=== PATIENT | male | born 1930 | race Caucasian/White ===

== ENCOUNTER → 2016-10-27 | Outpatient (CLI) | payer OTHER, BC ==
--- NOTE | 2016-10-27 18:59 | DX ---
Left Wrist, Three Views, at 2:26 p.m. Clinical History: 86-year-old male with a history of gout. Rule out fracture. ICD-10 Diagnostic Code: M1A.09X. Comparison Study: None. Findings: A metallic ring overlies the 5th digit proximal phalanx. The bones are demineralized. Th ere is severe narrowing of the radiocarpal joint space, with subchondral sclerosis and some osseous r esorption of the proximal pole of the navicular, with widening of the scapholunate distance and sever e narrowing of the capitate-lunate articular space. There is also degenerative osteoarthrosis of the navicular-greater multangular articulation, and severe degenerative change at the level of the thumb -carpometacarpal articulation. There is a well-corticated ossific density proximal to the thumb meta carpal. On the lateral view, there is some osseous hypertrophy over the dorsal soft tissues, and pro bable old dorsal triquetral avulsion fracture fragment(s). The pronator fat pad is not displaced. T here is some faint chondrocalcinosis associated with the triangular fibrocartilage. Impression: 1. Bone demineralization. 2. Severe radiocarpal joint space narrowing, with truncation of the scaphoid and widening of the sca pholunate distance as well as degenerative narrowing of the capitate-lunate articulation, and also in volving the radial portion of the intercarpal and thumb-carpometacarpal joint spaces. 3. There are probable old dorsal triquetral avulsion fragment(s).
== END ==
LOC: BMCIMAGING 14:26
PROVIDERS: ATTEND Internal Medicine Rheumatology
DX: M1A.09X0 Idiopathic chronic gout, multiple sites, without tophus (tophi) (principal)

== ENCOUNTER 2017-05-27 10:23 | Inpatient (IN) | payer OTHER, BC ==
--- NOTE | 2017-05-27 10:32 | CPEKG ---
Heart Rate: 87 RR Interval: 690 QRSD Interval: 84 QT Interval: 380 QTC Interval: 457 QRS [place]: 27 T Wave [place]: -19 EKG Severity - ABNORMAL ECG - EKG Impression: ATRIAL FIBRILLATION, V-RATE 69-104 EKG Impression: BORDERLINE T ABNORMALITIES, DIFFUSE LEADS Electronically Signed By: Geraldo Freeman 27-May-2017 16:10:51
--- NOTE | 2017-05-27 10:51 | EDPHY ---
H & P Time Seen by Provider: 05/27/17 10:50 HPI/ROS: Chief complaint. Chest pain HPI. 86-year-old male presents emergency department with chest pain. He has had chest pain for 4 days. It is described as anterior pressure without radiation. Some shortness of breath. Symptoms are worse with exertion and relieved by rest. He feels a little bit weak and lightheaded. No similar symptoms previously. No fever cough. No unusual leg pain or swelling. He has also been having an attack of pseudogout the last several days. He has had aspirin in the last 24 hours ROS Constitutional. no fever/chills, no weakness Eyes. no problems with vision ENT. no sore throat, no nasal drainage Cardiovascular. Chest pain Respiratory. Shortness of breath Abdominal. no abdominal pain, no nausea/vomiting, no diarrhea . no problems urinating MS. no calf pain/swelling, no neck/back pain, no joint pain Skin. no rash Lymph. no swollen glands Neuro. no headache, no dizziness, no difficulty walking or with speech Past Medical/Surgical History: Hernia repair, colon cancer, joint replacements, dyslipidemia, pseudogout Social History: , nonsmoker, no alcohol Smoking Status: Never smoked Physical Exam: General Appearance: Alert well-developed male moderate distress vital signs are stable Eyes: Pupils equal and round no pallor or injection. ENT, Mouth: Mucous membranes are moist. Respiratory: There are no retractions, lungs are clear to auscultation. Cardiovascular: Regular rate and rhythm. Gastrointestinal: Abdomen is soft and nontender, no masses, bowel sounds normal. Neurological: Awake and alert, sensory and motor exams grossly normal. Skin: Warm and dry, no rashes. Musculoskeletal: Neck is supple nontender. Extremities symmetrical, full range of motion. Psychiatric: Patient is oriented X 3, there is no agitation. Constitutional: Initial Vital Signs Temperature (C) 36.7 C 05/27/17 10:34 Heart Rate 80 05/27/17 10:34 Respiratory Rate 18 05/27/17 10:34 Blood Pressure 155/92 H 05/27/17 10:34 O2 Sat (%) 94 05/27/17 10:34 O2 Delivery Mode Room Air Allergies/Adverse Reactions: No Known Allergies Allergy (Unverified 09/20/15 22:27) Home Medications: Medication Instructions Recorded Allopurinol [Allopurinol 300 MG 300 mg PO DAILY 05/15/14 (RX)] Aspirin [Aspirin 81mg (*)] 81 mg PO DAILY 05/15/14 Fenofibric Acid (Choline) 135 mg PO DAILY 05/15/14 [TRILIPIX] Lisinopril [Zestril 20 mg (*)] 20 mg PO DAILY 05/15/14 Rosuvastatin Calcium [Crestor 20mg 20 mg PO DAILY 05/15/14 (*)] Multivitamins [Multivitamin (*)] 1 each PO DAILY 09/21/15 Hydrocodone/APAP 5/325 [[place] 1 tab PO Q6HRS PRN 09/12/16 5/325 (*)] Levothyroxine [Synthroid 50 mcg 50 mcg PO DAILY06 09/12/16 (*)] Methotrexate Sodium [Rheumatrex] 12.5 mg PO Q7D 05/27/17 predniSONE [Prednisone] 10 mg PO DAILY 05/27/17 Medical Decision Making - Diagnostics EKG Interpretation: EKG interpreted by me shows atrial fibrillation with normal axis. QRS is normal there is no significant ST elevation or depression. Ventricular response is 87 Imaging Results: Imaging Impressions Chest X-Ray 05/27/17 10:50 Impression: 1. Pleural parenchymal scarring in the lingula. 2. Calcified granulomata. 3. Cardiomegaly and atherosclerotic aorta without pulmonary edema. 4. No definite pneumonia. 5. Consider chest 2 views when the patient's medical condition permits. Chest x-ray interpreted by me shows no evidence of pneumonia Procedures: IV normal saline, monitor ED Course/Re-evaluation: On re-evaluation the patient, his , and I discussed laboratory evaluation including elevated troponin. We discussed treatment plan including recommendation for admission. He expresses understanding and agreement I consulted discussed case with hospitalist, who agrees to the admission Differential Diagnosis: Chest pain with new onset of atrial fibrillation as well as elevated troponin. I considered acute coronary syndrome, pneumonia. - Data Points Laboratory Results: Laboratory Results 05/27/17 10:27 05/27/17 10:27 05/27/17 05/27/17 05/27/17 10:27 10:27 10:27 WBC 11.59 10^3/uL H 10^3/uL (3.80-9.50) RBC 4.00 10^6/uL L 10^6/uL (4.40-6.38) Hgb 13.1 g/dL L g/dL (13.7-17.5) Hct 38.0 % L % (40.0-51.0) MCV 95.0 fL fL (81.5-99.8) MCH 32.8 pg pg (27.9-34.1) MCHC 34.5 g/dL g/dL (32.4-36.7) RDW 16.8 % H % (11.5-15.2) Plt Count 355 10^3/uL 10^3/uL (150-400) MPV 10.1 fL fL (8.7-11.7) Neut % (Auto) 85.7 % H % (39.3-74.2) Lymph % (Auto) 7.1 % L % (15.0-45.0) [place] % (Auto) 6.4 % % (4.5-13.0) Eos % (Auto) 0.0 % L % (0.6-7.6) Baso % (Auto) 0.1 % L % (0.3-1.7) Nucleat RBC Rel Count 0.0 % % (0.0-0.2) Absolute Neuts (auto) 9.94 10^3/uL H 10^3/uL (1.70-6.50) Absolute Lymphs (auto) 0.82 10^3/uL L 10^3/uL (1.00-3.00) Absolute Monos (auto) 0.74 10^3/uL 10^3/uL (0.30-0.80) Absolute Eos (auto) 0.00 10^3/uL L 10^3/uL (0.03-0.40) Absolute Basos (auto) 0.01 10^3/uL L 10^3/uL (0.02-0.10) Absolute Nucleated RBC 0.00 10^3/uL 10^3/uL (0-0.01) Immature Gran % 0.7 % % (0.0-1.1) Immature Gran # 0.08 10^3/uL 10^3/uL (0.00-0.10) PT 14.5 SEC SEC (12.0-15.0) INR 1.14 (0.83-1.16) APTT 34.6 SEC SEC (23.0-38.0) Sodium 137 mEq/L mEq/L (134-144) Potassium 4.8 mEq/L mEq/L (3.5-5.2) Chloride 102 mEq/L mEq/L (97-110) Carbon Dioxide 19 mEq/l L mEq/l (22-31) Anion Gap 16 mEq/L mEq/L (8-16) BUN 32 mg/dL H mg/dL (7-23) Creatinine 1.9 mg/dL H mg/dL (0.7-1.3) Estimated GFR 34 Glucose 117 mg/dL H mg/dL (70-100) Calcium 9.8 mg/dL mg/dL (8.5-10.4) Troponin I 1.210 ng/mL H ng/mL (0.000-0.034) Medications Given: Discontinued Medications Metoprolol Tartrate (Lopressor) 25 mg PO ONCE ONE Stop: 05/27/17 13:29 Last Admin: 05/27/17 15:22 Dose: 25 mg Departure - Departure Disposition: [facility] Inpatient Acute Clinical Impression: Chest pain Qualifiers: Chest pain type: chest pain due to myocardial ischemia Atrial fibrillation Qualifiers: Atrial fibrillation type: unspecified Qualified Code(s): I48.91 - Unspecified atrial fibrillation Condition: Fair
[2017-05-27 10:56] LABS: % IMMATURE GRANULYOCYTES 0.7 % (0.0-1.1); ABSOLUTE IMMATURE GRANULOCYTES 0.08 10^3/uL (0.00-0.10); ADD DIFF? NO; ADD MORPH? NO; ADD SCAN? NO; ATYPICAL LYMPHOCYTE FLAG 0 (0-99); FRAGMENT RBC FLAG 0 (0-99); HEMOGLOBIN 13.1 g/dL (13.7-17.5); LEFT SHIFT FLG 0 (0-99); LIPEMIA HEMOLYSIS FLAG 90 (0-99); MEAN CELL HEMOGLOBIN 32.8 pg (27.9-34.1); MEAN CELL HEMOGLOBIN CONCENTR. 34.5 g/dL (32.4-36.7); MEAN PLATELET VOLUME 10.1 fL (8.7-11.7); PLATELET CLUMPS FLAG 30 (0-99); PLATELET COUNT 355 10^3/uL (150-400); RED CELL DISTRIBUTION WIDTH 16.8 % (11.5-15.2)
[2017-05-27 11:04] LABS: APTT 34.6 SEC (23.0-38.0); INR 1.14 (0.83-1.16); PROTIME(PATIENT) 14.5 SEC (12.0-15.0)
[2017-05-27 11:05] LABS: ANION GAP 16 mEq/L (8-16); CALCIUM 9.8 mg/dL (8.5-10.4); CARBON DIOXIDE 19 mEq/l (22-31); CHLORIDE 102 mEq/L (97-110); CREATININE 1.9 mg/dL (0.7-1.3); GLOMERULAR FILTRATION RATE 34; GLUCOSE 117 mg/dL (70-100); POTASSIUM 4.8 mEq/L (3.5-5.2); SODIUM 137 mEq/L (134-144)
[2017-05-27] MEDS ORDERED: ONDANSETRON DISINTEGRATING 4 MG TAB PO PRN (11:57)
[2017-05-27] MEDS ORDERED: ONDANSETRON 4 MG/2 ML VIAL IVP PRN (11:57)
[2017-05-27 12:50] LABS: MAGNESIUM 1.8 mg/dL (1.6-2.3)
[2017-05-27 13:03] LABS: TROPONIN I 1.28 ng/mL (0.000-0.034)
[2017-05-27] MEDS ORDERED: HEPARIN 10,000 UNIT/10 ML MDV IVP ONE (13:28)
[2017-05-27] MEDS ORDERED: HEPARIN 10,000 UNIT/10 ML MDV IVP PRN (13:28)
[2017-05-27] MEDS ORDERED: METOPROLOL TARTRATE 25 MG TAB PO ONE (13:28)
--- NOTE | 2017-05-27 14:21 | GHP ---
[f rep st] HISTORY AND PHYSICAL DATE OF ADMISSION: 05/27/2017 CHIEF COMPLAINT: Chest pain. HISTORY OF PRESENT ILLNESS: This is an 86-year-old man, who presents with 2 days of a pseudogout at [facility], as well as chest pain. He has a history of pseudogout. Dr. Dave started him on prednisone . His shoulder got much better over the past few days, though the chest pain has lingered. Thus, tomasz castillo presented to the urgent care first, and then subsequently to the emergency department. Describes the chest pain as substernal pressure. It does not seem to really be exertional. It is associated with shortness of breath, which does get worse with exertion. The chest pain has come and gone, and at the moment that I am seeing him, he is having no chest pain. In the ED, he was found to be in atrial fibrillation. This is a new diagnosis for him. He has kimberlye r been told this before. He has never had any episodes of syncope. PAST MEDICAL/SURGICAL HISTORY: 1. Pseudogout. 2. Hypertension. 3. Hyperlipidemia. 4. Colon cancer. 5. HEATHER. 6. Cholecystectomy. 7. Lumbar fusion. 8. Appendectomy. 9. Multiple orthopedic procedures. MEDICATIONS: Please see medication reconciliation. ALLERGIES: No known drug allergies. SOCIAL HISTORY: He lives at the [place]. He occasionally has a drink of alcohol, though this is a bout every 2 weeks or so. He does not smoke. FAMILY HISTORY: Parents are . REVIEW OF SYSTEMS: A 10-point review of systems is conducted and is negative except per HPI. PHYSICAL EXAM: VITAL SIGNS: Blood pressure is 165/85, heart rate 87, respiration rate 20, saturati ng 94% on room air, temperature is 36.7. GENERAL: The patient is a very pleasant man, who appears comfortable, in no acute distress. HEENT: Shows him to be normocephalic, atraumatic. CARDIOVASCUL AR: Shows him to be irregularly irregular. There are no murmurs, rubs, or gallops. PULMONARY: Sh ows mild diffuse expiratory wheezes. He is not in any respiratory distress. ABDOMEN: Soft, nonten jah, nondistended. SKIN: No rash. : No Jaimes. NEUROLOGIC: Shows him to be alert and oriented x3. He is moving all extremities. PSYCHIATRIC: Shows normal mood and affect. LABS: White count is 11.5, hemoglobin is 13, platelets are 355. INR is 1.14. Lactate was not brandon ured. Creatinine is 1.9. Troponin was 1.2 on 2 subsequent checks. Urinalysis has not been done. DATA: 1. I discussed this with Dr. Sanz. She will evaluate him in consultation. 2. Chest x-ray, which I personally viewed and interpreted, shows nothing acute. 3. EKG, which I personally viewed and interpreted, shows atrial fibrillation. He has some mild T-w ave inversions in leads V4 through V6, which were not present before, but no significant ST changes. IMPRESSION AND PLAN: 1. 86-year-old man with new atrial fibrillation, chest pain, elevated troponin. 2. New atrial fibrillation: Likely precipitant is pseudogout. He is rate controlled. I have disc ussed with Dr. Sanz. She will consider cardioversion. I will give him 1 dose of metoprolol, since his rate seems to be higher than his normal heart rate. His rate is currently in the 80s to 90. Hi s blood pressure is high and he will tolerate this. We will start him on a heparin drip pending Car diology evaluation. 3. Chest pain/elevated troponin: I suspect that this is likely demand, though his troponin is sign ificantly elevated. Again, I have spoken with Dr. Sanz. He has been provided metoprolol, IV hepari n. We will get ischemic evaluation, before he leaves, per Cardiology. 4. Pseudogout: Much better. Will continue his prednisone. 5. Acute kidney injury: I suspect that this is hemodynamic. Will get an echocardiogram and follow this closely while we improve his hemodynamics, which we hope to do. 6. Mild acidosis: Follow. 7. Code status: Full. 8. Venous thromboembolism risk: Low. He will be on a heparin drip. /[id number]/MODL
--- NOTE | 2017-05-27 15:59 | ECHO ---
[id number] + + [address] : : [place] [address] : : [phone] + Adult Echocardiographic Report + ---+ :Name: MORAIMA TUTTLE WStudy Date: 05/27/2017 01:59 PM BP: 165/85 mmHg : : Hospital Admission Number: [id number] Location: 221: :: 1930 Gender: Male Height: 71 in : :Age: 86 yrs Race: WH Weight: 220 lb : :Reason For Study: afib : : BSA: 2.2 meters2 : :History: afib : + ---+ MMode/2D Measurements \T\ Calculations IVSd: 1.4 cm RVDd: 3.3 cm FS: 38.4 % Ao root diam: LVPWd: 1.1 cm LVIDd: 4.0 cm EDV(Teich): 4.2 cm LVIDs: 2.5 cm 70.6 ml ESV(Teich): 21.7 ml EF(Teich): 69.2 % LVLd ap4: 8.6 cm SV(MOD-sp4): EDV(MOD-sp4): 85.0 ml 112.0 ml LVLs ap4: 7.5 cm ESV(MOD-sp4): 27.0 ml EF(MOD-sp4): 75.9 % Normal Measurement Values: + + :LVIDd (3.5-5.7cm) IVSd (0.6-1.1cm) LVPWd (0.6-1.1cm) Aortic Root (2.0-3.7cm)Left Atrium (1.5-4.0cm): :LV Vol(d) (76-115ml) LV Vol(s) (29-48ml) Ejec Fraction (50-65%)PV Jose (0.6- 1.2m/s) TV Jose (0.4-1.0m/s) : :MV E Jose (0.8-1.0m/s)MV A Jose (0.3-1.0m/s)LVOT Jose (0.7-1.2m/s) Asc Ao Jose ( 0.9-1.8m/s) : + + Doppler Measurements \T\ Calculations MV E max jose: Ao V2 max: AI max jose: LV V1 max: 107.6 cm/sec 145.5 cm/sec 502.8 cm/sec 86.9 cm/sec MV dec time: Ao max PG: AI max PG: LV V1 max P.16 sec 8.5 mmHg 101.3 mmHg 3.0 mmHg AI dec slope: 389.9 cm/sec2 AI P1/2t: 377.7 msec PA V2 max: TR max jose: 57.4 cm/sec 290.4 cm/sec PA max P.3 mmHg TR max P.8 mmHg RAP systole: 10.0 mmHg RVSP(TR): 43.8 mmHg Left Ventricle The left ventricle is normal in size and function. There is mild concentric left ventricular hypertrophy. Ejection Fraction = 65-70%. Diastolic Function Indeterminate due to afib.. Regional wall motion abnormalities cannot be excluded due to limited visualization. Right Ventricle The right ventricle is normal in size and function. There is moderate right ventricular hypertrophy. Atria The left atrium is mildly dilated. Right atrial size is normal. A dilated inferior vena cava suggests increased right atrial pressure. Mitral Valve The mitral valve is not well visualized. There is no mitral valve stenosis. There is mild to moderate mitral regurgitation. Tricuspid Valve The tricuspid valve is not well visualized. There is no tricuspid stenosis. There is mild tricuspid regurgitation. Right ventricular systolic pressure is 44mmHg. There is Doppler evidence for mild to moderate pulmonary hypertension. Aortic Valve The aortic valve is trileaflet. Mild Aortic Valve Calcification. There is no aortic stenosis. Moderate aortic regurgitation. Pulmonic Valve The pulmonic valve is not well visualized. There is no pulmonic valvular regurgitation. Great Vessels Borderline aortic root dilatation. Pericardium/Pleural There is no pericardial effusion. There is a fat pad seen. Conclusion A two-dimensional transthoracic echocardiogram with M-mode and Doppler was performed. The study was technically difficult. Patient's rhythm is atrial fibrillation. The left ventricle is normal in size and function. There is mild concentric left ventricular hypertrophy. Ejection Fraction = 65-70%. There is moderate right ventricular hypertrophy. Moderate aortic regurgitation. There is mild to moderate mitral regurgitation. There is mild tricuspid regurgitation. Right ventricular systolic pressure is 44mmHg. There is Doppler evidence for mild to moderate pulmonary hypertension. Borderline aortic root dilatation. Final Reading Physician: Shawna Soto signed on 05/27/2017 03:58 PM Ordering Physician: Clement Montoya Performed By: Radha Vee
[2017-05-27] MEDS: HEPARIN/DEXTROSE 500 ML IV SCH (16:23)
--- NOTE | 2017-05-27 16:32 | GCON ---
[f rep st] CONSULTATION CARDIOLOGY CONSULT DATE OF CONSULTATION: 05/27/2017 PRIMARY LIVE OUT NANNY: Dr. Florentin Cano. CHIEF COMPLAINT: Chest pain and positive troponin. HISTORY OF PRESENT ILLNESS: We were asked by Dr. Montoya to visit with the patient. The patient is an 86-year-old male. 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 He has a history of chronic renal insufficiency a nd pseudogout. He also has known coronary disease with a catheterization several years ago showing subtotal occlusion of the first diagonal and a small PL branch. Vessels were not deemed appropriate for intervention given their small size. Over the past 5 days, he has had a significant flare of his pseudogout. He is on prednisone. He do es take chronic methotrexate. About 4 days ago, he started to develop intermittent upper chest pres sure, which initially thought was part of his pseudogout flare. He describes the chest pressure as 2/10 in intensity and much less severe than his joint pain. The pain waxed and waned, and nothing m jacob it particularly better or worse. He is currently chest pain free. He also reports exertional d yspnea when climbing stairs, but no edema, PND or orthopnea. He felt a little bit lightheaded last night but has not had syncope. He denies palpitation. He denies a known history of atrial fibrilla tion. Because of his gout and his chest discomfort, he presented to the ER. He was found to be in rate-co ntrolled atrial fibrillation. His first 2 troponins have been 1.2. He was, therefore, admitted for further evaluation and management. ALLERGIES: No known drug allergies. PAST MEDICAL HISTORY: 1. Coronary disease, as detailed above. 2. Chronic renal insufficiency. 3. Pseudogout. 4. Rheumatoid arthritis. 5. Osteoarthritis. 6. 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 7. Hypothyroidism. 8. History of gallstone pancreatitis. 9. Sleep apnea, currently untreated. 10. History of prostate cancer. 11. History of colon cancer. 12. Dyslipidemia. 13. Hypertension. PAST SURGICAL HISTORY: Total hip replacement, ventral hernia repair x2, and cholecystectomy. OUTPATIENT MEDICATIONS: Allopurinol, aspirin 81 mg daily, Trilipix, Synthroid 50 mcg daily, lisinop ril 20 mg daily, methotrexate, multivitamin, prednisone, and Crestor 20 mg daily. 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 He is , and his is at the bedside. He does not smoke cigarettes. He drinks alcohol rarely. FAMILY HISTORY: Not applicable to the current case. REVIEW OF SYSTEMS: CARDIOVASCULAR: As per HPI. He has also had some intermittent diarrhea that he thinks is a side effect of the meds used to treat his pseudogout. No history of stroke or major bl eeding diathesis. Otherwise, a full 10-point review of systems performed is negative. PHYSICAL EXAM: VITAL SIGNS: Blood pressure 165/85, heart rate 87, oxygen saturation 94% on room ai r. He is afebrile. Respiratory rate is 20. GENERAL: Well-appearing older male, in no acute distr ess. HEENT: Sclerae are clear and free of jaundice. Mucous members are moist. Normocephalic, atr aumatic. CARDIOVASCULAR: JVP less than 10. Carotids equal and 2+ bilaterally, without bruit. Irr egularly irregular rhythm, without murmur, rub, or S3. LUNGS: Clear to auscultation bilaterally, w ithout wheezes, rhonchi, or rales. ABDOMEN: Obese, soft, nontender, nondistended, with normal justin l sounds and no masses, bruits or hepatosplenomegaly. EXTREMITIES: Warm and well perfused, without cyanosis, clubbing, or edema. NEURO: Alert and oriented x3, without gross focal neurological defi cits. Appropriate mood and affect. DATA: Echocardiogram reviewed by me shows normal LV size. Mild concentric LVH. Normal LV systolic function, without obvious wall motion abnormality. Aortic valve is trileaflet with [id number] e aortic regurgitation. No aortic stenosis. RV is mildly dilated, with normal RV systolic function . Mild tricuspid regurgitation with mild pulmonary hypertension. Minimal anterior pericardial effu virgen with some pericardial thickening. No cardiac evidence of tamponade. Pericardial thickening an d fibrinous debris in the pericardium. LABORATORY DATA: White count 11.6, hematocrit 38, and platelets 355. INR 1.14, sodium 137, potassi um 4.8, chloride 102, bicarb 19, BUN 32, creatinine 1.9, glucose 117, troponin 1.2, and repeat 2 nohemi rs later is 1.28, TSH 1.96, magnesium 1.8, phosphorus 2.8. EKG reviewed by me shows atrial fibrillation with controlled ventricular response and no significant ischemic changes. Chest x-ray, reviewed by me: Scarring in the lingular area. Calcified granuloma. Atherosclerotic aorta. No pneumonia. ASSESSMENT/PLAN: An 86-year-old male with known coronary disease based on catheterization several y ears ago. I cannot find this report or images, but based on a [facility] office note in 2013, hi s catheterization was described as having subtotal occlusion of a small diagonal branch and a small posterolateral branch felt not amenable to intervention. He is now admitted with significant flare of pseudogout, chest pressure, and a mildly positive troponin, as well as new onset atrial fibrillat ion. 1. Chest pain and positive troponin: He is currently chest pain free. Differential diagnosis incl udes acute coronary syndrome triggered by his gout flare versus pericarditis. He does have evidence of pericardial effusion and some fibrinous debris based on echocardiogram. Given his known coronar y disease, we will treat him aggressively medically. He will be started on a heparin drip, oral bet a blockers, aspirin will be continued, and a statin will be continued. I do not think he requires u rgent cardiac catheterization given his lack of ischemic EKG changes and the fact that he is current ly chest pain free. Furthermore, catheterization would be high risk considering his acute on chroni c renal disease. I would like his creatinine to be better before we consider coronary angiography. The patient is comfortable with medical management, at least for today. Certainly, if his pain wor sens, EKG changes or troponin increases significantly, would consider coronary angiogram; n.p.o. aft er midnight tonight. 2. Atrial fibrillation: This is a new diagnosis for him. This may also have been triggered by his gout flare. He is currently rate controlled. Beta blockers as above. Heparin as above. He would be a candidate for Eliquis in the long-term, renally dosed. Would like to formally calculate his G FR. At this point, he does not require urgent cardioversion, but could consider a YARON-guided cardio version or an elective cardioversion after he has been on anticoagulation for 4 weeks. He does not appear to be in heart failure. 3. Renal insufficiency: Worsening renal function. He says he is making reasonable urine and has n ot had any hematuria or dysuria. He may require some hydration. Follow creatinine. 4. Pseudogout: He is on prednisone. He is also on methotrexate, presumably for his rheumatoid art hritis, per Internal Medicine. 5. Hypertension: He is on lisinopril as an outpatient. We will hold this given his fluctuating re nal function. He may need up titration of beta-blockers or addition of a medication such as Norvasc . 6. Dyslipidemia: Continue Crestor. Thank you for allowing us to participate in the patient's care. We will follow with you. /[id number]/MODL
[2017-05-27] MEDS: HYDROCODONE/APAP 5/325 TAB PO PRN ×2 (16:45→22:40)
[2017-05-27] MEDS ORDERED: METOPROLOL TARTRATE 5 MG/5 ML INJ IVP SCH (18:00)
[2017-05-27] MEDS: DOCUSATE SODIUM 100 MG CAP PO SCH (20:58)
[2017-05-27] MEDS: METOPROLOL TARTRATE 25 MG TAB PO SCH (20:58)
[2017-05-28 04:48] LABS: ABSOLUTE IMMATURE GRANULOCYTES 0.09 10^3/uL (0.00-0.10); ABSOLUTE NRBC COUNT 0.03 10^3/uL (0-0.01); ADD DIFF? NO; ADD MORPH? NO; ADD SCAN? NO; ATYPICAL LYMPHOCYTE FLAG 0 (0-99); FRAGMENT RBC FLAG 10 (0-99); HEMATOCRIT 33.4 % (40.0-51.0); LEFT SHIFT FLG 0 (0-99); LIPEMIA HEMOLYSIS FLAG 80 (0-99); MEAN CELL HEMOGLOBIN 31.5 pg (27.9-34.1); MEAN CELL HEMOGLOBIN CONCENTR. 32.9 g/dL (32.4-36.7); MEAN CELL VOLUME 95.7 fL (81.5-99.8); MEAN PLATELET VOLUME 10.2 fL (8.7-11.7); NRBC-AUTO% 0.3 % (0.0-0.2); PLATELET CLUMPS FLAG 10 (0-99); PLATELET COUNT 311 10^3/uL (150-400); RED BLOOD CELL COUNT 3.49 10^6/uL (4.40-6.38); RED CELL DISTRIBUTION WIDTH 16.8 % (11.5-15.2)
[2017-05-28 05:03] LABS: ALANINE AMINOTRANSFERASE 33 IU/L (21-72); ALBUMIN 3.3 g/dL (3.5-5.0); ALKALINE PHOSPHATASE 37 IU/L (38-126); ANION GAP 12 mEq/L (8-16); ASPARTATE AMINOTRANSFERASE 31 IU/L (17-59); BILIRUBIN,TOTAL 0.6 mg/dL (0.1-1.4); CALCIUM 8.9 mg/dL (8.5-10.4); CARBON DIOXIDE 19 mEq/l (22-31); CHLORIDE 105 mEq/L (97-110); CREATININE 1.9 mg/dL (0.7-1.3); GLOMERULAR FILTRATION RATE 34; GLUCOSE 96 mg/dL (70-100); POTASSIUM 4.3 mEq/L (3.5-5.2); SODIUM 136 mEq/L (134-144); TOTAL PROTEIN 5.7 g/dL (6.3-8.2)
[2017-05-28] MEDS: LEVOTHYROXINE 50 MCG TAB PO SCH (06:16)
[2017-05-28] MEDS: HEPARIN/DEXTROSE 500 ML IV SCH ×2 (08:51→23:58)
[2017-05-28] MEDS: METOPROLOL TARTRATE 25 MG TAB PO SCH ×2 (08:53→20:13)
[2017-05-28] MEDS: ALLOPURINOL 100 MG TAB PO SCH (08:54)
[2017-05-28] MEDS: ASPIRIN 81 MG CHEWABLE TAB PO SCH (08:54)
[2017-05-28] MEDS: predniSONE 10 MG TAB PO SCH (08:55)
[2017-05-28] MEDS ORDERED: FENOFIBRIC ACID 135 MG PO SCH (09:00)
--- NOTE | 2017-05-28 11:03 | PDCARPN ---
Cardiology Progress Note Assessment/Plan: Assessment/plan: 86 yo M with known CAD (cath several years ago with small vessel disease not intervened upon); CKD, pseudogout admitted 05/27 with significant pseuodogout flare as well as anginal chest pain. Peak trop 1.6. ECG with new dx of AF, rate controlled. Echo normal EF and normal wall motion. 1. CP/positive troponin/CAD: likely Type II [place] in the setting of pseudogout flare. Or myopericarditis (has small pericardial effusion on echo). Continue heparin, ASA, BB, statin. Given renal dysfunction, will further risk stratify with lexiscan MPI. If not significantly abnormal, continue medical management. Would do ASA alone (no plavix) given his need for OAC due to AF 2. AF: rate controlled. On BB. No symptoms. No DCCV for now, as he may have early recurrence of AF in setting of active pseudogout. Heparin until after MPI. Then Eliquis. Could consider outpatient DCCV. 3. Worsening renal function: creatinine 1.9 yesterday and today. Would like to avoid cor angiogram if possible 4. Hypoxia: CXR without infiltrate on admission. No cough. Does not appear volume overloaded 5. Pseudogout: on prednisone here and weekly MTX 6. VHD: 1-2+ AR 7. TAA: 4.4 cm on 09/2016 CT. Cont BB 8. Anemia: chronic. Will need to be careful in the setting of anticoagulation and steroids. 05/28/17 11:10 Subjective: Emiliano feels better. No angina or SOB. Denies palpitations. Walked a bit and felt weak and unsteady. Reviewed/Discussed With: family Time Spent With Patient: 20 minutes Objective: Vital Signs (8 Hrs) Temp Pulse Resp BP Pulse Ox 05/28/17 07:27 36.7 C 69 19 125/66 H 97 05/28/17 03:59 37 C 82 20 145/90 H 96 Intake/Output (24 Hrs) 05/27/17 05/28/17 05/29/17 05:59 05:59 05:59 Intake Total 1130 405 Output Total 401 Balance 729 405 Intake: Oral (ml) 1130 IV Infused (ml) 405 Heparin/Dextrose 500 ml @ 405 Per Protocol IV CONT [facility] Rx#:[id number] Output: Urine (ml) 401 Toilet 401 Other: Weight 100.2 kg Intake Quantity Yes Sufficient Number of Voids Incontinence 1 Toilet 1 1 NAD JVP <10. Irreg irreg. no murmur, rub or S3 Lungs CTAB No edema Result Diagrams: 05/28/17 03:56 05/28/17 03:56 Cardiac Labs: Cardiac Lab Results (72 Hrs) 05/28/17 05/27/17 05/27/17 09:30 17:20 12:22 Troponin I 1.370 H 1.640 H 1.280 H Telemetry: rate controlled AF ICD10 Worksheet Patient Problems: Problems Problem Status Onset Osteoarthritis of left hip Acute Pancreatitis due to biliary obstruction Acute Transaminitis Acute Chest pain Acute Atrial fibrillation Acute
--- NOTE | 2017-05-28 11:10 | CPEKG ---
Heart Rate: 67 RR Interval: 896 QRSD Interval: 84 QT Interval: 412 QTC Interval: 435 QRS [place]: 31 T Wave [place]: -18 EKG Severity - ABNORMAL ECG - EKG Impression: ATRIAL FIBRILLATION, V-RATE 56-77 EKG Impression: BORDERLINE T ABNORMALITIES, DIFFUSE LEADS Electronically Signed By: Ronald José 28-May-2017 14:17:12
--- NOTE | 2017-05-28 12:56 | HOSPPROG ---
Hospitalist Progress Note Assessment/Plan: # elevated troponin/CP - suspect demand ischemia; per cards, also possibly myopericarditis (Dr Sanz reports mild per - nuc stress per cards today - cath is high risk - heparin gtt # atrial fibrillation - rate controlled - metop BID - heparin gtt - cards to consider DCCV # DAVID - baseline SCr 1.2, 1.9 today unchanged from last night - new L hydro since 2016 - it is unclear to me if this is hemodynamic in nature or in part d/t L sided hydro - if hemodynamic would need to strongly consider DCCV - may need renal consult # L sided hydro, new since 2015 - discussed with urology - will consult - CT to look for reason for hydro - may need decompression based on CT findings # pseudogout - cont pred # hypoxia - nocturnal; he has HEATHER Subjective: inermittent CP overnight Objective: Vital Signs Temp Pulse Resp BP Pulse Ox 36.7 C 69 19 125/66 H 97 05/28/17 07:27 05/28/17 07:27 05/28/17 07:27 05/28/17 07:27 05/28/17 07:27 Laboratory Results 05/28/17 03:56 05/28/17 03:56 05/27/17 05/28/17 05/29/17 05:59 05:59 05:59 Intake Total 1130 405 Output Total 401 Balance 729 405 PT 14.5 SEC (12.0-15.0) 05/27/17 10:27 INR 1.14 (0.83-1.16) 05/27/17 10:27 - Physical Exam Constitutional: no apparent distress, appears nourished Cardiovascular: no murmur, rub, or gallop, irregularly irregular, No tachycardia , No bradycardia Respiratory: no respiratory distress, no rales or rhonchi, clear to auscultation Gastrointestinal: normoactive bowel sounds, soft, non-tender abdomen, no palpable masses ICD10 Worksheet Patient Problems: Problems Problem Status Onset Osteoarthritis of left hip Acute Pancreatitis due to biliary obstruction Acute Transaminitis Acute Chest pain Acute Atrial fibrillation Acute
[2017-05-28] MEDS ORDERED: REGADENOSON 0.4 MG/5 ML SYR IVP ONE (13:06)
--- NOTE | 2017-05-28 13:29 | SOAPPROG ---
MER Progress Note Assessment/Plan: Assessment: Hydronephrosis Acute reviewed sonogram and awaiting CAT--CAT scan noted left lower pole cyst and hydronephrosis of undetermined source. Await rad interpretation and consider retrograde in future yet need discuss options with patient prior to intervention. Plan: as noted, would not intervene until cardiac issue resolved 05/28/17 15:20 Subjective: No pain associated with renal obstruction Objective: Vital Signs Temp Pulse Resp BP Pulse Ox 36.6 C 77 20 132/70 H 95 05/28/17 12:43 05/28/17 12:43 05/28/17 12:43 05/28/17 12:43 05/28/17 12:43 Laboratory Results 05/28/17 03:56 05/28/17 03:56 05/27/17 05/28/17 05/29/17 05:59 05:59 05:59 Intake Total 1130 405 Output Total 401 200 Balance 729 205 PT 14.5 SEC (12.0-15.0) 05/27/17 10:27 INR 1.14 (0.83-1.16) 05/27/17 10:27 Physical Exam - Physical Exam General Appearance: alert Respiratory: No respiratory distress Abdomen: soft Back: No CVA tenderness Neuro/Psych: alert, oriented x 3 ICD10 Worksheet Patient Problems: Problems Problem Status Onset Atrial fibrillation Acute Chest pain Acute Hydronephrosis Acute Osteoarthritis of left hip Acute Pancreatitis due to biliary obstruction Acute Transaminitis Acute - ICD10 Problem Qualifiers (1) Hydronephrosis Qualifiers: Hydronephrosis type: H
--- NOTE | 2017-05-28 13:56 | PDCARST ---
CAR Stress Test Results Type of Stress Test: Lexiscan stress test Indication: +trop/cp Description of Procedure: After informed consent was obtained, pt was established to ECG, blood pressure, HR and oximetry monitoring. STRESS EKG AND HEMODYNAMIC DATA. Resting heart rate: 69 BPM. Resting ECG: AF. Resting blood pressure: 140/82 mmHg. O2 saturation at rest: 92. Peak heart rate: 95 BPM. Peak blood pressure: 122/64 mmHg. Arrhythmias: Afib throughout. Symptoms: The patient experienced no typical symptoms of angina during stress or recovery. Stress/Infusion ECG: No change in rhythm with no significant ST/T wave changes. Stress/infusion O2 saturation: 97 Impression: Uneventful Lexiscan infusion Conclusion: Await nuclear images
[2017-05-28] MEDS: DOCUSATE SODIUM 100 MG CAP PO SCH ×2 (14:50→20:13)
[2017-05-28] MEDS: FAMOTIDINE 20 MG TAB PO SCH (14:51)
[2017-05-28] MEDS: FENOFIBRATE 145 MG TAB PO SCH (14:51)
[2017-05-28] MEDS: ROSUVASTATIN CALCIUM 20 MG TAB PO SCH (14:52)
[2017-05-28] MEDS ORDERED: NS 1,000 ML IV ONE (16:59)
[2017-05-29] MEDS: LEVOTHYROXINE 50 MCG TAB PO SCH (05:17)
[2017-05-29] MEDS: DOCUSATE SODIUM 100 MG CAP PO SCH ×2 (08:46→20:25)
[2017-05-29] MEDS: predniSONE 10 MG TAB PO SCH (08:47)
[2017-05-29] MEDS: ASPIRIN 81 MG CHEWABLE TAB PO SCH (08:47)
[2017-05-29] MEDS: FAMOTIDINE 20 MG TAB PO SCH (08:47)
[2017-05-29] MEDS: ROSUVASTATIN CALCIUM 20 MG TAB PO SCH (08:47)
[2017-05-29] MEDS: ALLOPURINOL 100 MG TAB PO SCH (08:47)
[2017-05-29] MEDS: METOPROLOL TARTRATE 25 MG TAB PO SCH ×2 (08:47→20:25)
[2017-05-29] MEDS: FENOFIBRATE 145 MG TAB PO SCH (08:47)
[2017-05-29] MEDS: ACETAMINOPHEN 325 MG TAB PO PRN ×2 (08:48→21:59)
[2017-05-29 10:04] LABS: ANION GAP 11 mEq/L (8-16); CALCIUM 8.9 mg/dL (8.5-10.4); CARBON DIOXIDE 20 mEq/l (22-31); CHLORIDE 103 mEq/L (97-110); CREATININE 1.9 mg/dL (0.7-1.3); GLOMERULAR FILTRATION RATE 34; GLUCOSE 99 mg/dL (70-100); POTASSIUM 4.1 mEq/L (3.5-5.2); SODIUM 134 mEq/L (134-144)
--- NOTE | 2017-05-29 10:07 | HOSPPROG ---
Hospitalist Progress Note Assessment/Plan: #DAVID: Cr still 1.9 despite IVFs overnight. e/o hydronephrosis with obstructed left ureter. FeNa 3% #Atrial fibrillation: currently rate-controlled on BB, heparin gtt #NSTEMI: Type II with gout, possible myopericarditis. Nuclear stress negative for ischemia. Perhaps due to demand with a fib. Cont heparin gtt, BB, ASA, statin #Left ureter mass: concern for malignancy with h/o colon cancer. CT chest negative. CEA and CA-19-[address] Schroeder evaluating #RA: MTX #Gout: prednisone, renally-dosed allopurinol. H2 twan for gut protection #TTA: stable. Cont BB #Normocytic anemia: H/H stable. Monitor closely with anticoagulation. No active bleeding #Diet: regular #DVT ppx: on heparin gtt #Disp: warrants inpt admission with NSTEMI, DAVID. Cont IV heparin, serial labs Subjective: no difficulty urinating Objective: Vital Signs Temp Pulse Resp BP Pulse Ox 36.8 C 104 H 20 142/81 H 91 L 05/29/17 08:00 05/29/17 08:00 05/29/17 08:00 05/29/17 08:00 05/29/17 08:00 Laboratory Results 05/29/17 04:27 05/29/17 09:15 05/28/17 05/29/17 05/30/17 05:59 05:59 05:59 Intake Total 2439 200 Output Total 300 500 Balance 2139 -300 PT 14.5 SEC (12.0-15.0) 05/27/17 10:27 INR 1.14 (0.83-1.16) 05/27/17 10:27 - Physical Exam Constitutional: no apparent distress Eyes: PERRL Ears, Nose, Mouth, Throat: moist mucous membranes Cardiovascular: irregularly irregular, No edema Respiratory: no respiratory distress, no rales or rhonchi Gastrointestinal: normoactive bowel sounds, soft, non-tender abdomen Genitourinary: no bladder fullness, no bladder tenderness Skin: warm Musculoskeletal: full muscle strength, no joint effusions Neurologic: AAOx3, CN II-XII Intact ICD10 Worksheet Patient Problems: Problems Problem Status Onset Atrial fibrillation Acute Chest pain Acute Hydronephrosis Acute Osteoarthritis of left hip Acute Pancreatitis due to biliary obstruction Acute Transaminitis Acute
--- NOTE | 2017-05-29 12:03 | PDCARPN ---
Cardiology Progress Note Assessment/Plan: Assessment/plan: 86 yo M with known CAD (cath several years ago with small vessel disease not intervened upon); CKD, gout admitted 05/27 with significant gout flare as well as anginal chest pain. Peak trop 1.6. ECG with new dx of AF , rate controlled. Echo normal EF and normal wall motion. 1. CP/positive troponin/CAD: likely Type II [place] in the setting of gout flare. Or myopericarditis (has small pericardial effusion continue fibrin and debris on echo). Continue heparin, ASA, BB, statin. Given renal dysfunction, he had lexiscan MPI instead of catheterization. This showed normal myocardial perfusion. Would do ASA alone (no plavix) given his need for OAC due to AF. If he requires urological procedure, he may proceed. 2. AF: rate controlled. On BB. No symptoms. No DCCV for now, as he may have early recurrence of AF in setting of active gout. Heparin for now, then oral anticoagulation. Could consider outpatient DCCV. 3. Worsening renal function compared with outpatient baseline: creatinine 1.9 since admission. This did not improve with IV fluids. Does have left-sided hydronephrosis on renal ultrasound. Appreciate Urology consultation. 4. Hypoxia: CXR without infiltrate on admission. No cough. Does not appear volume overloaded. This has resolved. 5. gout: on prednisone here and weekly MTX. The methotrexate is for rheumatoid arthritis. He does see Dr. Germain Dave. 6. VHD: 1-2+ AR 7. TAA: 4.4 cm on 09/2016 CT. Cont BB 8. Anemia: chronic. Will need to be careful in the setting of anticoagulation and steroids. 05/29/17 12:07 Subjective: Emiliano slept poorly. Denies angina. His gout pain is improved. He describes dyspnea only when he is irritated her stress. He does not endorse dyspnea at home. Reviewed/Discussed With: family, hospitalist (Dr. Kenney) Objective: Vital Signs (8 Hrs) Temp Pulse Resp BP Pulse Ox 05/29/17 08:00 36.8 C 104 H 20 142/81 H 91 L 05/29/17 04:00 36.4 C 86 19 143/88 H 93 Intake/Output (24 Hrs) 05/28/17 05/29/17 05/30/17 05:59 05:59 05:59 Intake Total 2439 200 Output Total 300 700 Balance 2139 -500 Intake: Oral (ml) 670 200 IV Infused (ml) 1769 Heparin/Dextrose 500 ml @ 762 Per Protocol IV CONT [facility] Rx#:[id number] Ns 1,000 ml @ 100 mls/hr 1007 IV ONCE ONE Rx#: [id number] Output: Urine (ml) 300 700 Toilet 300 300 Urinal 400 Other: Intake Quantity Yes Sufficient Number of Voids Incontinence 2 Toilet 1 No acute distress. JVP less than 12. Irregular regular rhythm. No murmur or S3. Lungs clear to auscultation bilaterally without wheezes rhonchi or rales Extremities are warm and well perfused without cyanosis clubbing or edema Result Diagrams: 05/29/17 04:27 05/29/17 09:15 Telemetry: Atrial fibrillation with controlled ventricular response ICD10 Worksheet Patient Problems: Problems Problem Status Onset Osteoarthritis of left hip Acute Pancreatitis due to biliary obstruction Acute Transaminitis Acute Chest pain Acute Atrial fibrillation Acute Hydronephrosis Acute
--- NOTE | 2017-05-29 13:47 | SOAPPROG ---
MER Progress Note Assessment/Plan: Assessment: Hydronephrosis Acute reviewed sonogram and CAT--CAT scan noted left lower pole cyst and hydronephrosis related to pelvic mass, possible met colon cancer or ureteral lesion. He is to consider retrograde which would require GA, antegrade stent and neph tube in future , IR to add input. present and she feels no intervention needed. Discussed with Dr. Sanz in passing. Plan: as noted 05/29/17 13:46 Subjective: no complaints Objective: Vital Signs Temp Pulse Resp BP Pulse Ox 36.8 C 104 H 20 142/81 H 91 L 05/29/17 08:00 05/29/17 08:00 05/29/17 08:00 05/29/17 08:00 05/29/17 08:00 Laboratory Results 05/29/17 04:27 05/29/17 09:15 05/28/17 05/29/17 05/30/17 05:59 05:59 05:59 Intake Total 2439 200 Output Total 300 700 Balance 2139 -500 PT 14.5 SEC (12.0-15.0) 05/27/17 10:27 INR 1.14 (0.83-1.16) 05/27/17 10:27 Physical Exam - Physical Exam General Appearance: alert Neck: supple Abdomen: soft Back: No CVA tenderness Neuro/Psych: alert, oriented x 3 ICD10 Worksheet Patient Problems: Problems Problem Status Onset Atrial fibrillation Acute Chest pain Acute Hydronephrosis Acute Osteoarthritis of left hip Acute Pancreatitis due to biliary obstruction Acute Transaminitis Acute - ICD10 Problem Qualifiers (1) Hydronephrosis Qualifiers: Hydronephrosis type: H
[2017-05-29] MEDS: HEPARIN/DEXTROSE 500 ML IV SCH (15:49)
[2017-05-29] MEDS: HYDROCODONE/APAP 5/325 TAB PO PRN (21:57)
[2017-05-30 04:09] LABS: HEMATOCRIT 34.9 % (40.0-51.0); HEMOGLOBIN 11.7 g/dL (13.7-17.5); MEAN CELL HEMOGLOBIN 31.9 pg (27.9-34.1); MEAN CELL HEMOGLOBIN CONCENTR. 33.5 g/dL (32.4-36.7); MEAN CELL VOLUME 95.1 fL (81.5-99.8); RED BLOOD CELL COUNT 3.67 10^6/uL (4.40-6.38); RED CELL DISTRIBUTION WIDTH 16.6 % (11.5-15.2)
[2017-05-30 04:18] VITALS: RESP 20
[2017-05-30 05:04] LABS: ANION GAP 14 mEq/L (8-16); CALCIUM 8.9 mg/dL (8.5-10.4); CARBON DIOXIDE 18 mEq/l (22-31); CHLORIDE 106 mEq/L (97-110); CREATININE 1.8 mg/dL (0.7-1.3); GLOMERULAR FILTRATION RATE 36; GLUCOSE 107 mg/dL (70-100); POTASSIUM 3.9 mEq/L (3.5-5.2); SODIUM 138 mEq/L (134-144)
[2017-05-30] MEDS: LEVOTHYROXINE 50 MCG TAB PO SCH (05:26)
[2017-05-30] MEDS: HYDROCODONE/APAP 5/325 TAB PO PRN (06:38)
[2017-05-30 07:13] VITALS: TEMP 97.6; O2SAT 93
--- NOTE | 2017-05-30 07:46 | SOAPPROG ---
MER Progress Note Assessment/Plan: Assessment: Hydronephrosis Acute reviewed sonogram and CAT--CAT scan noted left lower pole cyst and hydronephrosis related to pelvic mass, possible met colon cancer or ureteral lesion. He is to consider retrograde which would require GA, antegrade stent and neph tube in future , IR to add input. present and she feels no intervention needed. Discussed with Dr. Sanz in passing. IR consult appreciated and pt desires percutaneous management of left hydronephrosis as out pt. Plan: as noted 05/30/17 09:45 Subjective: no complaints form side Objective: Vital Signs Temp Pulse Resp BP Pulse Ox 36.4 C 86 20 188/118 H 93 05/30/17 07:11 05/30/17 07:11 05/30/17 07:11 05/30/17 07:11 05/30/17 07:11 Laboratory Results 05/30/17 03:56 05/30/17 03:56 05/29/17 05/30/17 05/31/17 05:59 05:59 05:59 Intake Total 2439 1752.2 Output Total 300 1950 Balance 2139 -197.8 PT 14.5 SEC (12.0-15.0) 05/27/17 10:27 INR 1.14 (0.83-1.16) 05/27/17 10:27 Physical Exam - Physical Exam General Appearance: alert Respiratory: No respiratory distress Back: No CVA tenderness Skin: warm/dry ICD10 Worksheet Patient Problems: Problems Problem Status Onset Atrial fibrillation Acute Chest pain Acute Hydronephrosis Acute Osteoarthritis of left hip Acute Pancreatitis due to biliary obstruction Acute Transaminitis Acute - ICD10 Problem Qualifiers (1) Hydronephrosis Qualifiers: Hydronephrosis type: H
[2017-05-30] MEDS: HEPARIN/DEXTROSE 500 ML IV SCH (08:50)
[2017-05-30] MEDS: DOCUSATE SODIUM 100 MG CAP PO SCH (08:54)
[2017-05-30] MEDS: ALLOPURINOL 100 MG TAB PO SCH (08:54)
[2017-05-30] MEDS ORDERED: hydrALAZINE 25 MG TAB PO PRN (08:54)
[2017-05-30] MEDS: METOPROLOL TARTRATE 25 MG TAB PO SCH (08:54)
[2017-05-30] MEDS: FENOFIBRATE 145 MG TAB PO SCH (08:55)
[2017-05-30] MEDS: ROSUVASTATIN CALCIUM 20 MG TAB PO SCH (08:55)
[2017-05-30] MEDS: FAMOTIDINE 20 MG TAB PO SCH (08:55)
[2017-05-30] MEDS: predniSONE 10 MG TAB PO SCH ×2 (08:55→09:01)
[2017-05-30 09:02] VITALS: BP 151/84; PULSE 87
[2017-05-30] MEDS ORDERED: METOPROLOL TARTRATE 25 MG TAB PO ONE (09:10)
--- NOTE | 2017-05-30 09:49 | PDCARPN ---
Cardiology Progress Note Assessment/Plan: Assessment/plan: 86 yo M with known CAD (cath several years ago with small vessel disease not intervened upon); CKD, gout admitted 05/27 with significant gout flare as well as anginal chest pain. Peak trop 1.6. ECG with new dx of AF , rate controlled. Echo normal EF and normal wall motion. 1. CP/positive troponin/CAD: likely Type II [place] in the setting of gout flare. Or myopericarditis (has small pericardial effusion continue fibrin and debris on echo). Continue heparin, ASA, BB, statin. Given renal dysfunction, he had lexiscan MPI instead of catheterization. This showed normal myocardial perfusion. Would do ASA alone (no plavix) given his need for OAC due to AF. The patient is considering a percutaneous nephrostomy tube to treat his hydronephrosis. We did discuss the cardiovascular and bleeding risks associated with this. If he proceeds, as an outpatient, he will hold his Eliquis for 2 days prior. From a cardiac standpoint, I would like him to remain on aspirin 81 mg daily as well as beta-blockers. 2. AF: rate controlled. On BB. Increase today to hypertension. No symptoms. No DCCV for now, as he may have early recurrence of AF in setting of active gout. Change IV heparin to renally dosed Eliquis. Could consider outpatient DCCV. 3. Worsening renal function compared with outpatient baseline: creatinine 1.9 to 1.8 since admission. This did not improve with IV fluids. Does have left- sided hydronephrosis on renal ultrasound. Appreciate Urology interventional radiology consultation. Plan is for outpatient percutaneous nephrostomy tube in 7-10 days. 4. Gout and rheumatoid arthritis: on prednisone here and weekly MTX. He is followed by Dr. Germain Dave. 5. VHD: 1-2+ [place] 6. TAA: 4.4 cm on 09/2016 CT. Cont BB 7. Anemia: chronic. Will need to be careful in the setting of anticoagulation and steroids. 8. Hypertension: Increase beta-blockers today. From a cardiovascular standpoint, he may be discharged with close clinical follow-up. 05/30/17 09:52 Subjective: Emiliano denies angina. He has ongoing discomfort in her shoulders related to gout. He is not dyspneic. Reviewed/Discussed With: hospitalist (Dr. Kenney. Dr. Schroeder), other (Also discussed with Dr. Peña) Objective: Vital Signs (8 Hrs) Temp Pulse Resp BP Pulse Ox 05/30/17 08:54 87 151/84 H 05/30/17 07:11 36.4 C 86 20 188/118 H 93 05/30/17 04:00 37.0 C 77 20 149/89 H 94 Intake/Output (24 Hrs) 05/29/17 05/30/17 05/31/17 05:59 05:59 05:59 Intake Total 2439 1752.2 Output Total 300 1950 Balance 2139 -197.8 Intake: Oral (ml) 670 980 IV Infused (ml) 1769 772.2 Heparin/Dextrose 500 ml @ 762 772.2 Per Protocol IV CONT [facility] Rx#:[id number] Ns 1,000 ml @ 100 mls/hr 1007 IV ONCE ONE Rx#: [id number] Output: Urine (ml) 300 1950 Toilet 300 750 Urinal 1200 Other: Intake Quantity Yes Yes Sufficient Number of Voids Incontinence 2 2 Toilet 1 1 No acute distress. Lying flat in bed JVP less than 10. Irregular regular rhythm without murmur or S3 Lungs clear to auscultation without wheezes rhonchi or rales Extremities are warm well perfused without cyanosis clubbing or edema Result Diagrams: 05/30/17 03:56 05/30/17 03:56 Telemetry: Atrial fibrillation with controlled ventricular response ICD10 Worksheet Patient Problems: Problems Problem Status Onset Osteoarthritis of left hip Acute Pancreatitis due to biliary obstruction Acute Transaminitis Acute Chest pain Acute Atrial fibrillation Acute Hydronephrosis Acute
[2017-05-30] MEDS ORDERED: APIXABAN 2.5 MG TAB PO SCH (10:00)
[2017-05-30] MEDS: ASPIRIN 81 MG CHEWABLE TAB PO SCH (10:25)
--- NOTE | 2017-05-30 11:19 | PDIAF ---
- Diagnosis Diagnosis: DAVID, ureter mass, atrial fibrillation Code Status: Full Code - Medication Management Discharge Medications: Medications to Continue on Transfer Aspirin [Aspirin 81mg (*)] 81 mg PO DAILY 05/15/14 [Last Taken 09/11/16] Fenofibric Acid (Choline) [TRILIPIX] 135 mg PO DAILY 05/15/14 [Last Taken ] Rosuvastatin Calcium [Crestor 20mg (*)] 20 mg PO DAILY 05/15/14 [Last Taken ] Multivitamins [Multivitamin (*)] 1 each PO DAILY 09/21/15 [Last Taken 05/27/17] Hydrocodone/APAP 5/325 [[place] 5/325 (*)] 1 tab PO Q6HRS PRN 09/12/16 [Last Taken 05/27/17] Levothyroxine [Synthroid 50 mcg (*)] 50 mcg PO DAILY06 09/12/16 [Last Taken ] predniSONE [Prednisone] 10 mg PO DAILY 05/27/17 [Last Taken 05/26/17] Allopurinol [Allopurinol 100 MG (*)] 100 mg PO DAILY #30 tab 05/30/17 [Last Taken Unknown] Apixaban [Eliquis] 2.5 mg PO BID #60 tab 05/30/17 [Last Taken Unknown] Famotidine [Pepcid 20 MG (*)] 20 mg PO DAILY #30 tab 05/30/17 [Last Taken Unknown] Methotrexate Sodium [Rheumatrex] 5 mg PO Q7D #1 tab 05/30/17 [Last Taken Unknown ] Metoprolol Tartrate [Lopressor 50 mg (*)] 50 mg PO BID #60 tab 05/30/17 [Last Taken Unknown] Discharge Medications: Refer to the Discharge Home Medication list for PRN reason. - Orders Services needed: Home Care, Registered Nurse, Physical Therapy, Occupational Therapy Home Care Face to Face: I certify that this patient was under my care and that I had the required [id number] encounter meeting the encounter requirements on the discharge day. My findings support the fact that the patient is homebound as defined in CMS Chapter 7 Medicare Benefits Manual 30.1.1, The condition of the patient is such that there exists a normal inability to leave home and consequently, leaving home would require a considerable and taxing effort. Diet Recommendation: no restrictions on diet Diet Texture: Regular Texture Diet - Labs/Radiology BMP Date: 06/01/17 - Follow Up Care Current Providers and Referrals: Adrián Peña MD [Medical Doctor] - Patient,NotPresent [Unknown] - As per Instructions Connie Sanz MD [Medical Doctor] - (follow up 2-3 weeks. Please call for appt )
--- NOTE | 2017-05-30 11:57 | HOSPPROG ---
Hospitalist Progress Note Assessment/Plan: #DAVID: Cr 1.8. Due to hydronephrosis. Plan for outpatient neph tube per IR. Renally-dosed home meds #Atrial fibrillation: currently rate-controlled on BB, Eliquis. H2 twan for GI protection #NSTEMI: Type II with gout, possible myopericarditis. Nuclear stress negative for ischemia. Perhaps due to demand with a fib. Eliquis, BB, ASA, statin #Left ureter mass: concern for malignancy with h/o colon cancer. CT chest negative. CEA and CA-19-[address] Schroeder evaluated. Avoid surgical intervention given age and risk factors #RA: MTX, renally-dosed #Gout: prednisone, renally-dosed allopurinol. H2 twan for gut protection #TTA: stable. Cont BB #Normocytic anemia: H/H stable. Monitor closely with anticoagulation. No active bleeding #Diet: regular #DVT ppx: on heparin gtt #Disp: DC today with home RN, PT. Repeat BMp 06/01 Subjective: no CP or SOB Objective: Vital Signs Temp Pulse Resp BP Pulse Ox 36.4 C 87 20 151/84 H 93 05/30/17 07:11 05/30/17 08:54 05/30/17 07:11 05/30/17 08:54 05/30/17 07:11 Laboratory Results 05/30/17 03:56 05/30/17 03:56 05/29/17 05/30/17 05/31/17 05:59 05:59 05:59 Intake Total 2439 1752.2 Output Total 300 1950 Balance 2139 -197.8 PT 14.5 SEC (12.0-15.0) 05/27/17 10:27 INR 1.14 (0.83-1.16) 05/27/17 10:27 - Physical Exam Constitutional: no apparent distress Eyes: PERRL Ears, Nose, Mouth, Throat: moist mucous membranes, hearing normal Cardiovascular: regular rate and rhythym, no murmur, rub, or gallop, No edema Respiratory: no respiratory distress Gastrointestinal: normoactive bowel sounds, soft, non-tender abdomen Genitourinary: no bladder fullness Skin: warm Musculoskeletal: full muscle strength, other (slow gate with walker) Neurologic: AAOx3, CN II-XII Intact Psychiatric: interacting appropriately ICD10 Worksheet Patient Problems: Problems Problem Status Onset Atrial fibrillation Acute Chest pain Acute Hydronephrosis Acute Osteoarthritis of left hip Acute Pancreatitis due to biliary obstruction Acute Transaminitis Acute
--- NOTE | 2017-05-30 13:34 | GDS ---
[f rep st] DISCHARGE SUMMARY DISCHARGE DIAGNOSES: 1. NSTEMI/CAD 2. Atrial fibrillation. 3. Acute kidney injury, acute on chronic kidney disease. 4. Gout. 5. Rheumatoid arthritis. 6. Valvular heart disease. 7. Thoracic aortic aneurysm. 8. Normocytic anemia. 9. Hypertension. 10. History of colon cancer. 11. Obstructive sleep apnea. 12. Hyperlipidemia. HISTORY OF PRESENT ILLNESS: The patient is an 86-year-old male with history of rheumatoid arthritis, gout who presented with chest pain. He has been recently on prednisone for left shoulder pain, and this has improved over the last prior days. However, chest pain has lingered. He describes it as substernal, but not really exertional. He had associated shortness of breath. In the emergency room, he was found to have new onset atrial fibrillation. HOSPITAL COURSE BY PROBLEM: 1. NSTEMI/CAD: Likely secondary to type 2 [place] in the setting of acute gout flare or possible myopericarditis, as he did have a small pericardial effusion on echo. He was medically treated here with heparin drip, aspirin, beta-twan , and statin given his renal dysfunction. He had a negative Lexiscan instead of cardiac catheterization. We will treat only with aspirin given need for AC. Add Famotidine for GI protection. He will be discharged on Eliquis, metoprolol , statin and aspirin. He should hold his Eliquis 2 days prior to his nephrostomy tube. 2. Atrial fibrillation. He is currently rate controlled on beta twan. Eliquis. 3. Acute kidney injury on CKD: secondary to left ureter mass and hydronephrosis. Dr. Schroeder evaluated and opted for no surgery for mass given high -risk with comorbidities. Thus, will proceed with a percutaneous nephrostomy tube outpatient. Allopurinol and methotrexate have been renally dosed. He will have a repeat BMP on Thursday per [facility]. 4. Gout. Continue prednisone, added an H2 twan, given prednisone and Eliquis for GI protection. 5. Valvular heart disease, stable. 6. Thoracic aortic aneurysm 4.[address] in September 2016. Continue beta twan. 7. Normocytic anemia. This is chronic. No active bleeding. 8. Accelerated hypertension. Hold lisinopril given DAVID. His beta-twan was increased. 9. Deconditioning: PT/OT at home. The patient is discharged home with his with home health for medications, PT/OT. Medications: Allopurinol: decreased to 100mg daily MTX: decreased to 5mg weekly FOLLOWUP: 1. Dr. Peña with Interventional Radiology for nephrostomy tube. 2. Dr. Connie Sanz for atrial fibrillation. 3. PCP. 4. BMP for renal function. 5. Dr. Dave for gout/rheumatoid arthritis. He will need a repeat BMP before increasing methotrexate back to normal dose. Time spent on discharge: 70 min on discharge: educating pt on medication changes , follow up plan and d/w Dr. Sanz. /[id number]/MODL MTDD
[2017-05-30] MEDS ORDERED: METOPROLOL TARTRATE 50 MG TAB PO SCH (21:00)
== END 2017-05-30 12:21 | disposition home health service (06) | DRG 281 ==
LOC: EDUNIT# → INTOOBSV 11:31 → F2W 12:51 → OBSVTOIN 05-28 12:58
PROVIDERS: ADMIT Student in an Organized Health Care Education/Training Program; ATTEND Student in an Organized Health Care Education/Training Program
DX: I21.4 Non-ST elevation (NSTEMI) myocardial infarction (principal); N17.9 Acute kidney failure, unspecified; I38 Endocarditis, valve unspecified; N13.1 Hydronephrosis with ureteral stricture, not elsewhere classified; I25.10 Atherosclerotic heart disease of native coronary artery without angina pectoris; I12.9 Hypertensive chronic kidney disease with stage 1 through stage 4 chronic kidney disease, or unspecified chronic kidney disease; N18.9 Chronic kidney disease, unspecified; I48.91 Unspecified atrial fibrillation; M10.9 Gout, unspecified; M06.9 Rheumatoid arthritis, unspecified; I71.2 Thoracic aortic aneurysm, without rupture; D64.9 Anemia, unspecified; G47.33 Obstructive sleep apnea (adult) (pediatric); E78.5 Hyperlipidemia, unspecified; Z85.038 Personal history of other malignant neoplasm of large intestine
CPT/HCPCS: 85520-90; 86301-90; 97162-GP; 97165-GO; 97530-GO; 97535-GO; A9500; G0378; G8978-GP-CK; G8979-GP-CI; G8987-GO-CJ; G8988-GO-CI; J1644; J2785

== ENCOUNTER 2017-05-31 19:12 | Inpatient (IN) | payer OTHER, BC ==
--- NOTE | 2017-05-31 19:18 | EDPHY ---
H & P HPI/ROS: Chief complaint. Stroke alert HPI. 86-year-old male presents emergency department by EMS with stroke alert. Per EMS his reports new right arm weakness in the last 2-3 hours. is not here and EMS is not more specific than this. The patient was discharged from the hospital yesterday after being admitted for atrial fibrillation and elevated troponin. He was started on Eliquis yesterday. No recent falls or head injury that we know of. No fever. Patient does not have chest discomfort. His notes that does seem to be fatigued in generally weak today. She was concerned that this could be stroke or heart attack so she called EMS. The patient does seem to have right arm weakness. ROS Constitutional. Weakness Eyes. no problems with vision ENT. no sore throat, no nasal drainage Cardiovascular. no chest pain Respiratory. no shortness of breath, no cough Abdominal. no abdominal pain, no nausea/vomiting, no diarrhea . no problems urinating MS. no calf pain/swelling, no neck/back pain, no joint pain Skin. no rash Lymph. no swollen glands Neuro. Right arm weakness Past Medical/Surgical History: Past medical history coronary artery disease with non STEMI, atrial fibrillation , acute kidney injury with acute on chronic kidney disease, gout, rheumatoid arthritis, valvular heart disease, thoracic aortic aneurysm, hypertension, colon cancer, sleep apnea, dyslipidemia Social History: , nonsmoker, no alcohol Smoking Status: Never smoked Physical Exam: General Appearance: Alert well-developed male somewhat slow to respond mild distress vital signs stable Eyes: Pupils equal and round no pallor or injection. ENT, Mouth: Mucous membranes are moist. Respiratory: There are no retractions, lungs are clear to auscultation. Cardiovascular: Regular rate and rhythm. Gastrointestinal: Abdomen is soft and nontender, no masses, bowel sounds normal. Neurological: Awake and alert. Sensation normal. Cranial nerves intact with facial sensation symmetrical. Speech is normal. Right arm weakness and unable to lift off the bed. Left arm normal. Weakness but able to lift both legs off the bed Skin: Warm and dry, no rashes. Musculoskeletal: Neck is supple nontender. Extremities symmetrical, full range of motion. Psychiatric: Patient is oriented X 3, there is no agitation. Constitutional: Initial Vital Signs Temperature (C) 36.7 C 05/31/17 19:26 Heart Rate 86 05/31/17 19:26 Respiratory Rate 20 17 19:26 Blood Pressure 172/97 H 05/31/17 19:26 O2 Sat (%) 98 05/31/17 19:26 O2 Delivery Mode Room Air O2 (L/minute) 2 Allergies/Adverse Reactions: No Known Allergies Allergy (Unverified 09/20/15 22:27) Home Medications: Medication Instructions Recorded Aspirin [Aspirin 81mg (*)] 81 mg PO DAILY 05/15/14 Fenofibric Acid (Choline) 135 mg PO DAILY 05/15/14 [TRILIPIX] Rosuvastatin Calcium [Crestor 20mg 20 mg PO DAILY 05/15/14 (*)] Multivitamins [Multivitamin (*)] 1 each PO DAILY 09/21/15 Hydrocodone/APAP 5/325 [[place] 1 tab PO Q6HRS PRN 09/12/16 5/325 (*)] Levothyroxine [Synthroid 50 mcg 50 mcg PO DAILY06 09/12/16 (*)] predniSONE [Prednisone] 10 mg PO DAILY 05/27/17 Allopurinol [Allopurinol 100 MG 100 mg PO DAILY #30 tab 05/30/17 (*)] Apixaban [Eliquis] 2.5 mg PO BID #60 tab 05/30/17 Famotidine [Pepcid 20 MG (*)] 20 mg PO DAILY #30 tab 05/30/17 Methotrexate Sodium [Rheumatrex] 5 mg PO Q7D #1 tab 05/30/17 Metoprolol Tartrate [Lopressor 50 50 mg PO BID #60 tab 05/30/17 mg (*)] Eliquis 05/31/17 Medical Decision Making - Diagnostics EKG Interpretation: EKG interpreted by me shows atrial fibrillation with normal axis. QRS mild interventricular conduction delay. Otherwise normal. No significant ST elevation or depression. Lateral T-wave flattening. Ventricular response is 88 Imaging Results: Imaging Impressions Chest X-Ray 05/31/17 19:15 Impression: 1. No acute pulmonary disease. 2. Cardiomegaly and atherosclerotic aorta. Head CT 05/31/17 19:15 Impression: 1. Moderate atrophy. 2. No acute hemorrhage, hydrocephalus, or mass effect. 3. Severe cerebrovascular atherosclerosis. 4. No definite acute infarct. 5. Severe microvascular ischemic gliosis. 6. Consider MRI of the brain, without and with contrast enhancement, if there is continued clinical concern. Findings and recommendations discussed with Emergency Department physician, Geraldo Freeman M.D., at 1920 hours, on May 31, 2017. Final report concurs with initial preliminary interpretation. Noncontrast head CT shows atrophy but no hemorrhage Chest x-ray shows cardiomegaly and atherosclerotic aorta but no pneumonia Procedures: IV normal saline, monitor ED Course/Re-evaluation: I saw the patient immediately on arrival and the patient is transported to CT after my brief exam. [facility] is consulted and I consulted with Dr. Burns who examined the patient on the robot. He recommends no IV contrast for perfusion studies at this time but a MRI high an MRA. He also recommends no tPA secondary to patient being on Eliquis Re-evaluation at 8:30 p.m. patient is stable. The patient, his , and I discussed imaging studies lab results EKG findings. We discussed treatment plan including recommendation for admission. They expressed understanding agreement I consulted and discussed the case with Dr. Camacho, hospitalist, who agrees to the admission Differential Diagnosis: Initial stroke activation. I considered intracranial bleeding is the patient is on Eliquis. He has no chest pain but he has an elevated troponin. On re- evaluation he continues not have any chest discomfort. Critical Care Time: Critical care time exclusive procedures 40 minutes - Data Points Laboratory Results: Laboratory Results 05/31/17 19:15 05/31/17 19:15 05/31/17 05/31/17 05/31/17 19:15 19:15 19:15 WBC 12.28 10^3/uL H 10^3/uL (3.80-9.50) RBC 4.06 10^6/uL L 10^6/uL (4.40-6.38) Hgb 13.1 g/dL L g/dL (13.7-17.5) POC Hgb Hct 38.6 % L % (40.0-51.0) POC Hct MCV 95.1 fL fL (81.5-99.8) MCH 32.3 pg pg (27.9-34.1) MCHC 33.9 g/dL g/dL (32.4-36.7) RDW 16.5 % H % (11.5-15.2) Plt Count 293 10^3/uL 10^3/uL (150-400) MPV 9.8 fL fL (8.7-11.7) Neut % (Auto) 82.8 % H % (39.3-74.2) Lymph % (Auto) 7.2 % L % (15.0-45.0) [place] % (Auto) 9.0 % % (4.5-13.0) Eos % (Auto) 0.0 % L % (0.6-7.6) Baso % (Auto) 0.2 % L % (0.3-1.7) Nucleat RBC Rel Count 0.0 % % (0.0-0.2) Absolute Neuts (auto) 10.17 10^3/uL H 10^3/uL (1.70-6.50) Absolute Lymphs (auto) 0.89 10^3/uL L 10^3/uL (1.00-3.00) Absolute Monos (auto) 1.10 10^3/uL H 10^3/uL (0.30-0.80) Absolute Eos (auto) 0.00 10^3/uL L 10^3/uL (0.03-0.40) Absolute Basos (auto) 0.02 10^3/uL 10^3/uL (0.02-0.10) Absolute Nucleated RBC 0.00 10^3/uL 10^3/uL (0-0.01) Immature Gran % 0.8 % % (0.0-1.1) Immature Gran # 0.10 10^3/uL 10^3/uL (0.00-0.10) PT 17.4 SEC H SEC (12.0-15.0) INR 1.43 H (0.83-1.16) APTT 33.7 SEC SEC (23.0-38.0) POC Sodium Sodium 137 mEq/L mEq/L (134-144) POC Potassium Potassium 4.7 mEq/L mEq/L (3.5-5.2) POC Chloride Chloride 103 mEq/L mEq/L (97-110) Carbon Dioxide 20 mEq/l L mEq/l (22-31) Anion Gap 14 mEq/L mEq/L (8-16) POC BUN BUN 31 mg/dL H mg/dL (7-23) Creatinine 2.0 mg/dL H mg/dL (0.7-1.3) POC Creatinine Estimated GFR 32 Glucose 108 mg/dL H mg/dL (70-100) POC Glucose Calcium 9.7 mg/dL mg/dL (8.5-10.4) Troponin I 2.330 ng/mL H ng/mL (0.000-0.034) 05/31/17 19:09 WBC RBC Hgb POC Hgb 14.3 gm/dL gm/dL (13.7-17.5) Hct POC Hct 42 % % (40-51) MCV MCH MCHC RDW Plt Count MPV Neut % (Auto) Lymph % (Auto) [place] % (Auto) Eos % (Auto) Baso % (Auto) Nucleat RBC Rel Count Absolute Neuts (auto) Absolute Lymphs (auto) Absolute Monos (auto) Absolute Eos (auto) Absolute Basos (auto) Absolute Nucleated RBC Immature Gran % Immature Gran # PT INR APTT POC Sodium 138 mEq/L mEq/L (134-144) Sodium POC Potassium 4.4 mEq/L mEq/L (3.3-5.0) Potassium POC Chloride 105 mEq/L mEq/L (97-110) Chloride Carbon Dioxide Anion Gap POC BUN 32 mg/dL H mg/dL (7-23) BUN Creatinine POC Creatinine 1.9 mg/dL H mg/dL (0.7-1.3) Estimated GFR Glucose POC Glucose 113 mg/dL H mg/dL (70-100) Calcium Troponin I Point of Care Test Results: 05/31/17 19:09 POC Sodium 138 POC Potassium 4.4 POC Chloride 105 POC BUN 32 H POC Creatinine 1.9 H POC Glucose 113 H Departure - Departure Disposition: [facility] Inpatient Acute Clinical Impression: Elevated troponin Condition: Fair
[2017-05-31 19:21] LABS: % IMMATURE GRANULYOCYTES 0.8 % (0.0-1.1); ADD DIFF? NO; ADD MORPH? NO; ADD SCAN? NO; ATYPICAL LYMPHOCYTE FLAG 0 (0-99); FRAGMENT RBC FLAG 0 (0-99); HEMATOCRIT 38.6 % (40.0-51.0); HEMOGLOBIN 13.1 g/dL (13.7-17.5); LEFT SHIFT FLG 0 (0-99); LIPEMIA HEMOLYSIS FLAG 90 (0-99); MEAN CELL HEMOGLOBIN 32.3 pg (27.9-34.1); MEAN CELL HEMOGLOBIN CONCENTR. 33.9 g/dL (32.4-36.7); MEAN CELL VOLUME 95.1 fL (81.5-99.8); MEAN PLATELET VOLUME 9.8 fL (8.7-11.7); PLATELET CLUMPS FLAG 0 (0-99); PLATELET COUNT 293 10^3/uL (150-400); RED BLOOD CELL COUNT 4.06 10^6/uL (4.40-6.38); RED CELL DISTRIBUTION WIDTH 16.5 % (11.5-15.2)
[2017-05-31 19:31] LABS: ANION GAP 14 mEq/L (8-16); CALCIUM 9.7 mg/dL (8.5-10.4); CARBON DIOXIDE 20 mEq/l (22-31); CHLORIDE 103 mEq/L (97-110); GLOMERULAR FILTRATION RATE 32; GLUCOSE 108 mg/dL (70-100); POTASSIUM 4.7 mEq/L (3.5-5.2); SODIUM 137 mEq/L (134-144)
[2017-05-31 19:33] LABS: INR 1.43 (0.83-1.16); PROTIME(PATIENT) 17.4 SEC (12.0-15.0)
[2017-05-31 19:34] LABS: APTT 33.7 SEC (23.0-38.0)
--- NOTE | 2017-05-31 19:38 | CPEKG ---
Heart Rate: 88 RR Interval: 682 QRSD Interval: 80 QT Interval: 372 QTC Interval: 450 QRS [place]: 34 T Wave [place]: -71 EKG Severity - ABNORMAL ECG - EKG Impression: ATRIAL FIBRILLATION, V-RATE 78-101 Electronically Signed By: Geraldo Freeman 31-May-2017 20:48:13
[2017-05-31] MEDS ORDERED: ONDANSETRON 4 MG/2 ML VIAL IVP PRN (21:46)
[2017-05-31] MEDS ORDERED: ONDANSETRON DISINTEGRATING 4 MG TAB PO PRN (21:46)
[2017-05-31] MEDS ORDERED: ACETAMINOPHEN 325 MG TAB PO PRN (21:46)
[2017-05-31] MEDS ORDERED: METOPROLOL TARTRATE 25 MG TAB PO ONE (22:41)
--- NOTE | 2017-05-31 23:03 | GHP ---
[f rep st] HISTORY AND PHYSICAL DATE OF ADMISSION: 05/31/2017 The patient is a pleasant 86-year-old gentleman with recent admission for shoulder pain. He was fou nd to have a positive troponin. He was also noted to have atrial fibrillation at that time. At jh t point in time, he had a negative stress test with no focal wall motion abnormalities and intact EF . He has taken the angiogram because of his chronic renal insufficiency. He was discharged 2 days ago on Eliquis and aspirin. He returns today with generalized pain and sti ll with right arm weakness. There was a pain all over versus perhaps, and his saying not actin g correct. There may be a component of memory impairment in both of them. When I speak with the patient, he says he has been able to follow some commands and move his right a rm and right leg. He will not abduct his right arm but when I move with passive motion, he denies a lot of pain. He has not had heart failure symptoms such as PND or orthopnea. He has been complian t with his new medications. He has pain all over which has been attributed to pseudogout. He also has regular gout, as he takes allopurinol. He is currently living at the [facility]. He has not had falls. He has not had fever or chills. He was recently started on prednisone for history of pseudogout. REVIEW OF SYSTEMS: A complete 10-point review of systems was conducted and negative except as noted in the HPI. PAST MEDICAL HISTORY: 1. Pseudogout. 2. Hypertension. 3. Hyperlipidemia. 4. Colon cancer. 5. Obstructive sleep apnea. 6. Cholecystectomy. 7. Lumbar fusion. 8. Appendectomy. 9. Positive troponin of uncertain etiology felt possibly consistent with type 2 FL in the setting o f gout flare versus myopericarditis as he had a small pericardial effusion with fibrin and debris on echocardiogram. ALLERGIES: No known drug allergies. HOME MEDICATIONS: Eliquis, aspirin, methotrexate, prednisone, [place], allopurinol, famotidine, fenof ibric acid, levothyroxine, metoprolol, multivitamin, rosuvastatin. SOCIAL HISTORY: Lives at the [facility]. . Nonsmoker. Alcohol every other week. FAMILY HISTORY: Parents . PHYSICAL EXAMINATION: VITAL SIGNS: Temp 36.7, blood pressure 177/98, pulse 84, breathing 20 times a minute, 98% on 2 L. GENERAL: No acute distress. HEENT: Sclerae anicteric. Oropharynx clear. Mucous membranes moist. NECK: Supple without lymphadenopathy or JVD. LUNGS: Clear to auscultatio n bilaterally. HEART: S1, S2. ABDOMEN: Soft, nontender, nondistended. LOWER EXTREMITIES: Witho ut edema. Calves nontender. SKIN: Without rash. NEUROLOGIC: Notable for inability to abduct his right arm, but the strength and sensation in his right arm is otherwise intact. His left arm, he w ill not plantar flex or dorsiflex it. He moves it passively. His sensation is intact bilaterally, and his hip strength and leg flexion are intact bilaterally. LABS: White count 12.3, hematocrit 38.6, platelets are 293,000. His white count is up a bit. His INR is 1.4 consistent with Eliquis use. Sodium 137, potassium 4.7, chloride 103, bicarb 20, BUN 31, creatinine 2.0, glucose 108. Troponin of 2.3, notably it was 1.2-1.6 during his last admission. U rinalysis is not done. I have discussed the case with Dr. Geraldo Freeman. EKG, interpreted by me, shows AFib at 80 with norm al axis and intervals, diffuse flat T's but otherwise also unremarkable. Chest x-ray, interpreted b y me, shows cardiomegaly without failure or infiltrate. Noncontrast head CT shows moderate atrophy with no acute events, severe cerebrovascular atherosclerosis. ASSESSMENT AND PLAN: An 86-year-old gentleman with multiple medical problems, who presents with a c omplex constellation of symptoms, including possible right arm weakness, possible right leg weakness , elevated troponin. 1. Question CVA: The patient is not a candidate for given Eliquis therapy. His neuro e xam is inconsistent and possibly limited by pain. We will go ahead and check an MRI of his brain. He received an aspirin. 2. Positive troponin: I suspect a nonvascular process. He had a negative stress test. We will fo llow his troponin. Cardiology can be called in the morning. I will send some inflammatory markers. We will follow him on telemetry. He is also on an aspirin, statin, and beta twan. 3. Question encephalopathy: The patient may have a component of encephalopathy. I will send a UA and some inflammatory markers. Have also drawn blood cultures. 4. Right shoulder pain: The patient has resistance to passive movement with some pain on his right . I will go ahead and send inflammatory markers. There is no clear effusion or evidence to suggest an infected joint so we will follow. 5. Prophylaxis: Therapeutically anticoagulated. 6. Disposition: Inpatient status. /[id number]/MODL
[2017-06-01 04:43] LABS: ABSOLUTE IMMATURE GRANULOCYTES 0.12 10^3/uL (0.00-0.10); ADD DIFF? NO; ADD MORPH? NO; ADD SCAN? NO; ATYPICAL LYMPHOCYTE FLAG 0 (0-99); FRAGMENT RBC FLAG 0 (0-99); HEMATOCRIT 37.7 % (40.0-51.0); HEMOGLOBIN 12.6 g/dL (13.7-17.5); LEFT SHIFT FLG 0 (0-99); LIPEMIA HEMOLYSIS FLAG 80 (0-99); MEAN CELL HEMOGLOBIN CONCENTR. 33.4 g/dL (32.4-36.7); MEAN CELL VOLUME 95.7 fL (81.5-99.8); MEAN PLATELET VOLUME 10.1 fL (8.7-11.7); PLATELET CLUMPS FLAG 0 (0-99); PLATELET COUNT 259 10^3/uL (150-400); RED BLOOD CELL COUNT 3.94 10^6/uL (4.40-6.38); RED CELL DISTRIBUTION WIDTH 16.8 % (11.5-15.2)
[2017-06-01 05:09] LABS: ANION GAP 14 mEq/L (8-16); C-REACTIVE PROTEIN 72.2 mg/L (<10.0); CALCIUM 9.4 mg/dL (8.5-10.4); CARBON DIOXIDE 17 mEq/l (22-31); CHLORIDE 104 mEq/L (97-110); CREATININE 1.7 mg/dL (0.7-1.3); GLOMERULAR FILTRATION RATE 38; GLUCOSE 107 mg/dL (70-100); POTASSIUM 4.2 mEq/L (3.5-5.2); SODIUM 135 mEq/L (134-144)
[2017-06-01 05:21] LABS: SEDIMENTATION RATE 16 MM/HR (0-20)
[2017-06-01] MEDS: LEVOTHYROXINE 50 MCG TAB PO SCH (05:52)
[2017-06-01 08:58] LABS: COLOR YELLOW; LEUKOCYTE ESTERASE,URINE NEGATIVE (NEGATIVE); NITRITE,URINE NEGATIVE (NEGATIVE)
[2017-06-01 08:59] LABS: MUCUS TRACE /lpf (NONE-1+)
[2017-06-01] MEDS ORDERED: FENOFIBRIC ACID 135 MG PO SCH (09:00)
[2017-06-01] MEDS ORDERED: ASPIRIN 81 MG CHEWABLE TAB PO SCH (09:00)
[2017-06-01] MEDS ORDERED: APIXABAN 2.5 MG TAB PO SCH (09:00)
[2017-06-01] MEDS: FENOFIBRATE 145 MG TAB PO SCH (09:36)
[2017-06-01] MEDS: MULTIVITAMINS 1 EACH TAB PO SCH (09:36)
[2017-06-01] MEDS: ROSUVASTATIN CALCIUM 20 MG TAB PO SCH (09:36)
[2017-06-01] MEDS: METOPROLOL TARTRATE 50 MG TAB PO SCH ×2 (09:37→22:16)
[2017-06-01] MEDS: ALLOPURINOL 100 MG TAB PO SCH (09:37)
[2017-06-01] MEDS: FAMOTIDINE 20 MG TAB PO SCH (09:37)
[2017-06-01] MEDS: predniSONE 10 MG TAB PO SCH (09:37)
--- NOTE | 2017-06-01 12:30 | SOAPPROG ---
SOAP Progress Note Assessment/Plan: Assessment: 1. Probable acute CVA. Presents with altered level of consciousness associated with flaccid right upper extremity hemiparesis. His head CT scan did not indicate any evidence of bleeding. He did not have an MRI performed. He is in atrial fibrillation. This is likely the etiology for his stroke. His systemic anticoagulation was started several days ago when his atrial fibrillation was discovered. As such, I do not think this constitutes of failure of his anticoagulation. 2. Type [address] elevation myocardial infarction. This is noted in the setting of his recent CVA. His troponins have peaked and now are trending down. He has known branch vessel coronary disease based on previous cardiac catheterization done a number of years ago. 3. Chronic renal insufficiency. 4. Atrial fibrillation. Discovered several days ago during his previous hospitalization. Started on systemic anticoagulation with renally dosed Eliquis. Rate controlled with low-dose beta-blockers. 5. Coronary artery disease. Historically thought to be branch vessel disease. He had a stress myocardial perfusion imaging study during his hospitalization last week that was noted to be normal. 6. Elevated brain natrietretic peptide. Possibly related to valvular heart disease including aortic insufficiency. Not clinically in overt heart failure. Plan: 1. At this point, I do not think that there is indication for aggressive cardiovascular evaluation. 2. Recommend neurology consultation. I wonder about the utility of performing a brain MRI. 3. I would defer to Neurology the decision as to whether not to continue his systemic anticoagulation in the setting of an acute stroke. 4. Continue beta-twan therapy for rate control and blood pressure control. 5. He is slightly hypertensive at the present time. This may be advantageous in the setting of his current presentation with an acute CVA. 06/01/17 12:47 Subjective: The patient was seen and examined. His previous records were reviewed. He was discharged from the hospital on the only to be readmitted yesterday. His previous hospitalization was for new onset atrial fibrillation complicated by a type [address] elevation myocardial infarction. He was started on renally dosed Eliquis during that hospitalization. In talking to his , she brought him back to the hospital because she felt that there was something wrong. He was difficult to arouse and would not really move spontaneously. There was weakness in his right upper extremity. He was not complaining of chest discomfort nor was experiencing dyspnea. Arrival he was hemodynamically stable in rate controlled atrial fibrillation. His electrocardiogram demonstrated atrial fibrillation with only nonspecific ST and T changes. He did have right upper extremity weakness and there were concerns for possible CVA however that diagnosis was in question. His head CT demonstrated age-related atrophy without acute bleed or findings that suggested acute stroke. He did not have a MRI. Overnight, his weakness has progressed. He currently has right upper extremity flaccid hemiparesis. Additionally, he is more somnolent than he was at the time of his admission. Objective: Vital Signs Temp Pulse Resp BP Pulse Ox 36.5 C 86 16 158/66 H 94 06/01/17 08:00 06/01/17 11:45 06/01/17 11:45 06/01/17 09:30 06/01/17 11:45 Laboratory Results 06/01/17 04:10 06/01/17 04:10 05/31/17 06/01/17 06/02/17 05:59 05:59 05:59 Intake Total 10 150 Output Total 675 Balance 10 -525 PT 17.4 SEC (12.0-15.0) H 05/31/17 19:15 INR 1.43 (0.83-1.16) H 05/31/17 19:15 Laboratory Tests 05/31/17 05/31/17 06/01/17 19:15 19:15 04:10 INR 1.43 H Troponin I 2.330 H 3.160 H C-Reactive Protein 72.2 H NT-Pro-B Natriuret Pep [id number] H 06/01/17 10:00 INR Troponin I 2.950 H C-Reactive Protein NT-Pro-B Natriuret Pep Physical Exam - Physical Exam General Appearance: WD/WN, no apparent distress, other (During the interview he frequently will drift off to sleep) Neck: non-tender Respiratory: lungs clear, No decreased breath sounds, No crackles, No rales, No rhonchi Cardiac/Chest: irregularly irregular, No edema, No gallop, No JVD Peripheral Pulses: 2+: carotid (R), carotid (L) Abdomen: non-tender, soft Male Genitalia: deferred Rectal: deferred Neuro/Psych: other (Flaccid, right upper extremity hemiparesis) ICD10 Worksheet Patient Problems: Problems Problem Status Onset Elevated troponin Acute Osteoarthritis of left hip Acute Pancreatitis due to biliary obstruction Acute Transaminitis Acute Chest pain Acute Atrial fibrillation Acute Hydronephrosis Acute
--- NOTE | 2017-06-01 14:02 | HOSPPROG ---
Hospitalist Progress Note Assessment/Plan: Assessment: 86-year-old male presents with suspected acute CVA in setting of type [address] elevation myocardial infarction Plan: 1. Suspected CVA. Acute, new problem this provider, further workup indicated. Evidenced by right hemiparesis with altered level of mentation, resulting in re- admission on 05/31. -get MRI -get Neurology consultation -currently receiving aspirin and systemic anticoagulation, defer adjustment to Plavix with systemic anticoagulation to the neurology service -permissive hypertension, systolic blood pressure currently 170 -get lipid panel and hemoglobin A1c 2. Non ST-elevation myocardial infarction. Type 2 comma in the setting of CVA, discussed with Dr. Delmar Sevilla, he recommends once patient is out of the acute phase we will most likely up titrate his beta-twan -troponin down trending -EKG demonstrating Q-wave in lead 3, personally interpreted -continue monitor on telemetry 3. Paroxysmal atrial fibrillation. New presentation several days ago, unclear whether this has been provoked by neurologic episode or is the cause -he is currently on Eliquis for CVA prevention, and appears to have had a CVA despite being on anticoagulation -will hold this evening's Eliquis given potential for hemorrhagic conversion -will need to discuss with Neurology whether we should adjust his systemic anticoagulation agent 4. Acute kidney injury on chronic kidney disease stage III. Baseline creatinine 1.2-1.8, outside lab values reviewed, presenting level 2.0 in the setting of above, has down trended with IV fluids -continue monitor urine output serum creatinine level 5. Acute on chronic encephalopathy. Although it has been suspected that the patient has baseline level of cognitive impairment, his acute presentation was substantially altered from his baseline, characterized as confusion, agitation, disorientation, witnessed by his , and felt to be acutely unusual for this patient, most likely secondary to suspected CVA outlined above. -patient has reoriented but his concentration is poor -continue cog therapy Diet. Regular Prophylaxis. High risk patient, pharmacologic contraindicated in the setting of possible CVA, SCDs Code. Do not resuscitate per patient, confirmed with Disposition. Anticipated discharge uncertain, requiring all the therapy modalities, will most likely require alf facility placement. Subjective: Patient continues to feel weak Objective: Vital Signs Temp Pulse Resp BP Pulse Ox 36.5 C 86 16 139/68 H 92 06/01/17 08:00 06/01/17 12:31 06/01/17 12:31 06/01/17 12:31 06/01/17 12:31 Laboratory Results 06/01/17 04:10 06/01/17 04:10 05/31/17 06/01/17 06/02/17 05:59 05:59 05:59 Intake Total 10 150 Output Total 675 Balance 10 -525 PT 17.4 SEC (12.0-15.0) H 05/31/17 19:15 INR 1.43 (0.83-1.16) H 05/31/17 19:15 - Physical Exam Constitutional: no apparent distress, not in pain, chronically ill appearing, No uncomfortable Cardiovascular: systolic murmur (1/6 sternal), irregularly irregular, No tachycardia, No edema Respiratory: inspiratory crackles (Bilateral bases), No reduced air movement, No expiratory wheeze, No bronchial breath sounds, No respiratory distress Gastrointestinal: normoactive bowel sounds, soft, non-tender abdomen, no palpable masses Neurologic: AAOx3, sensation intact bilaterally, weakness (2/5 motor strength in his right upper extremity, 3/5 motor strength in his right lower extremity), CN II-XII Intact, No facial droop Psychiatric: not anxious, encephalopathic (Slowed cognition, concentration is 2/ 7), flat affect, No agitated ICD10 Worksheet Patient Problems: Problems Problem Status Onset Elevated troponin Acute Atrial fibrillation Acute Chest pain Acute Hydronephrosis Acute Osteoarthritis of left hip Acute Pancreatitis due to biliary obstruction Acute Transaminitis Acute
[2017-06-01] MEDS ORDERED: LABETALOL HCL 5 MG/ML 20 ML MDV IVP PRN (18:49)
--- NOTE | 2017-06-01 18:59 | HOSPPROG ---
Hospitalist Progress Note Assessment/Plan: Critical care note: Called by Radiology as MRI demonstrated multiple, BL infarcts (reviewed me). A&P: #Bilateral CVAs: cerebellar, parietal, frontal. Watershed appearance. Possible anoxic/hypotensive episode with a fib? Or embolic -spoke with Dr. Muhammad. Change ASA to full dose. Check MR angio head/neck given kidney function -blood pressure at goal Critical care time spent: 25 min reviewing notes, imaging and d/w Radiology and Dr. Muhammad Objective: Vital Signs Temp Pulse Resp BP Pulse Ox 36.5 C 78 16 142/82 H 98 06/01/17 08:00 06/01/17 16:00 06/01/17 16:00 06/01/17 16:00 06/01/17 16:00 Laboratory Results 06/01/17 04:10 06/01/17 04:10 05/31/17 06/01/17 06/02/17 05:59 05:59 05:59 Intake Total 10 150 Output Total 950 Balance 10 -800 PT 17.4 SEC (12.0-15.0) H 05/31/17 19:15 INR 1.43 (0.83-1.16) H 05/31/17 19:15 ICD10 Worksheet Patient Problems: Problems Problem Status Onset Elevated troponin Acute Atrial fibrillation Acute Chest pain Acute Hydronephrosis Acute Osteoarthritis of left hip Acute Pancreatitis due to biliary obstruction Acute Transaminitis Acute
[2017-06-02 04:10] LABS: % IMMATURE GRANULYOCYTES 1.2 % (0.0-1.1); ABSOLUTE IMMATURE GRANULOCYTES 0.15 10^3/uL (0.00-0.10); ADD DIFF? NO; ADD MORPH? NO; ADD SCAN? NO; ATYPICAL LYMPHOCYTE FLAG 0 (0-99); FRAGMENT RBC FLAG 0 (0-99); HEMATOCRIT 37.6 % (40.0-51.0); HEMOGLOBIN 12.7 g/dL (13.7-17.5); LEFT SHIFT FLG 0 (0-99); LIPEMIA HEMOLYSIS FLAG 90 (0-99); MEAN CELL HEMOGLOBIN 31.9 pg (27.9-34.1); MEAN CELL HEMOGLOBIN CONCENTR. 33.8 g/dL (32.4-36.7); MEAN CELL VOLUME 94.5 fL (81.5-99.8); PLATELET CLUMPS FLAG 10 (0-99); PLATELET COUNT 239 10^3/uL (150-400); RED BLOOD CELL COUNT 3.98 10^6/uL (4.40-6.38); RED CELL DISTRIBUTION WIDTH 16.4 % (11.5-15.2)
[2017-06-02 04:55] LABS: ANION GAP 12 mEq/L (8-16); CALCIUM 9.3 mg/dL (8.5-10.4); CARBON DIOXIDE 19 mEq/l (22-31); CHLORIDE 108 mEq/L (97-110); CHOLESTEROL 135 mg/dL (140-220); CHOLESTEROL/HDL RATIO 2.55 RATIO (1.00-4.97); CREATININE 1.4 mg/dL (0.7-1.3); GLOMERULAR FILTRATION RATE 48; GLUCOSE 117 mg/dL (70-100); HIGH DENSITY LIPOPROTEIN 53 mg/dL (40-65); LDL/HDL RATIO 1.15 RATIO (1.00-3.64); LOW DENSITY LIPOPROTEIN 61 mg/dL (80-100); NON-HIGH DENSITY LIPOPROTEIN 82 mg/dL (90-129); POTASSIUM 4.2 mEq/L (3.5-5.2); SODIUM 139 mEq/L (134-144); TRIGLYCERIDE 105 mg/dL (40-150); VERY LOW DENSITY LIPOPROTEINS 21 mg/dL (8-25)
[2017-06-02] MEDS: LEVOTHYROXINE 50 MCG TAB PO SCH (06:23)
--- NOTE | 2017-06-02 09:35 | PDCONSULT ---
Steward/Stewardess Deck Note: HOSPITAL NEUROLOGY CONSULT REQUESTING: Bolivar Do MD REASON: stroke HPI: 86 year old right-handed gentleman with a history of HTN, HLD, HEATHER, CKD who presented to our facility yesterday via EMS due to altered mental status. He was just discharged from our hospital 05/30 due to RUE pain, elevated troponins due to suspected type II NSTEMI and newly diagnosed atrial fibrillation. He had TTE and MPI which were unremarkable. He was started on renally dosed apixaban for the afib, in addition to ASA 81mg. His beta-twan was also increased. He was discharged home on 05/30. On the morning of 05/31, his noted the patient was not acting correctly. He seemed confused and was asking for help in things he is normally independent, such as getting up to go to the bathroom. She did not notice any focal deficits. She summoned EMS and he was transported to our facility. On initial evaluation in the ED, he was confused and there was note of flaccid RUE weakness. Stroke alert was activated and he was evaluated by the tele-stroke service. He had been on apixaban, so he was not an appropriate thrombolytic candidate. He was not deemed and interventional/surgical candidate either. He was admitted for suspected stroke. This morning, he is still confused and not at his baseline per his . He has not had any complaints. No prior history of stroke/TIA. ROS: As per the HPI, otherwise a complete 12 point ROS was performed and is negative ALLERGIES AND MEDS: As recorded in the EMR - reviewed and reconciled PFSH: As per the intake H&P by Dr. Do from yesterday EXAM: VS reviewed in EMR GEN: WDWN laying in NAD HEENT: NCAT, sclera anicteric, conjunctiva not injected, MMM, oropharynx clear, no scalp tenderness NECK: supple, nontender, no meningismus CV: irreg irreg s1 s2 with grade 2 systolic murmur best at RUSB. Carotid pulses 2+ wo bruit NEURO: MS: somnolent, needs continued verbal stimulation to maintain awareness. He is only oriented to his own name. Speech intermittently with flaccid dysarthria. Language dixon he tends to perseverate and has occasional difficulty with expression. Follows commands with prompting. Attends to both sides. Recent/ remote memory grossly impaired. Mood depressed. Adequate fund of knowledge. CN: pupils 3mm round and reactive. Intoelrant of fundoscopy. Reduced blink to threat OD, intact OS. Primary gaze centered. Difficulty with adduction OD. Facial sensation preserved. Face symmetric. Hearing grossly intact to finger rub. Palatoglossal movements intact. Shoulder shrug and head turn strong. MOTOR: normal bulk. Flaccid RUE, lower tone elsewhere. Able to shrug right shoulder and trace finger wiggle on the right, otherwise full power. SENSORY: intact LT/PP throughout and symmetric. No extinction. COORD: no ataxia FN/HS (unable to test RUE due to weakness). Alka labored. REFLEX: plantars up. No clonus. DTRS absent. GAIT: deferred to PT safety eval DATA REVIEW: Labs reviewed in EMR LDL 61 PERSONALLY INTERPRETED RESULTS AND DATA: MRI brain wo - scattered bilateral hemispheric and cerebellar cortically based ischemic strokes with some involvement of deep structures. Linear foci of acute ischemia directed in the A/P plane in the white matter of the frontal- parietal regions reminiscent of watershed infarction. IMPRESSION AND RECOMMENDATIONS: // ACUTE ISCHEMIC STROKE // AFIB // HTN // HLD // HEATHER // TYPE II NSTEMI // CKD Patient with acute ischemic stroke of cardioembolic etiology resulting in embolic shower to the bilateral hemispheres and cerebellum. Embolic shower is likely responsible for AMS, but primary team investigating for other toxic/ metabolic sources. Flaccid RUE weakness likely from cerebellar ischemia. He has some difficulty adducting the right eye, reminiscent of internuclear ophthalmoplegia, but I don't see any ischemic in the region of the midbrain/MLF (though could have been a small lesion not detected by MRI) - he also has a baseline vision problem that his can't describe other than "he has binocular vision" so this may be an unrelated chronic condition as well. The watershed appearing ischemia will need to be evaluated with vascular imaging, and cardiology is evaluating again - perhaps he had reduced perfusion with some RVR? - MRA head/neck wo (GFR < 35, so no contrast) - cont ASA 325mg daily - can transition back to prior anticoagulation/ antiplatelet regimen in 10-14 days - allow for some permissive HTN, but would intervene for SBP > 160 or DBP > 100 given his overall cardiovascular status. Would also be vigilant for hypotensive episodes and optimize for MAP > 70 (especially with possibility of watershed infarcts superimposed on cardioembolism) - continue statin - at goal LDL < 70 - goal normoglycemia with A1c < 6.5 - can be addressed as outpatient - CPAP at night for HEATHER - PT/OT/PATENT LAW SPECIALIST consultations - stroke education - delirium precautions - day/night orientation, lights on/window shade up from [id number], sensory optimization with glasses and hearing aids if needed, regular meal times when safely taking PO, stimulate during daytime with TV/radio /family at bedside, frequent orientation, OOB to chair when safe, ambulate with PT when safe, nonpharmacologic sleep enhancement with cool/quiet/dark room after 2100. - avoid sedating/disinhibiting medications
[2017-06-02] MEDS: MULTIVITAMINS 1 EACH TAB PO SCH (09:37)
[2017-06-02] MEDS: FAMOTIDINE 20 MG TAB PO SCH (09:37)
[2017-06-02] MEDS: ASPIRIN 325 MG TAB PO SCH (09:37)
[2017-06-02] MEDS: FENOFIBRATE 145 MG TAB PO SCH (09:37)
[2017-06-02] MEDS: METOPROLOL TARTRATE 50 MG TAB PO SCH ×2 (09:37→20:12)
[2017-06-02] MEDS: ALLOPURINOL 100 MG TAB PO SCH (09:37)
[2017-06-02] MEDS: predniSONE 10 MG TAB PO SCH (09:38)
[2017-06-02] MEDS: ROSUVASTATIN CALCIUM 20 MG TAB PO SCH (09:38)
[2017-06-02] MEDS ORDERED: IOPAMIDOL (ISOVUE 370) 100 ML BTL IV ONE (11:39)
--- NOTE | 2017-06-02 14:41 | SOAPPROG ---
SOAP Progress Note Assessment/Plan: Assessment: 1. Acute bilateral cardioembolic CVA. Presents with altered level of consciousness associated with flaccid right upper extremity hemiparesis. His head CT scan did not indicate any evidence of bleeding. He did not have an MRI performed. He is in atrial fibrillation. This is likely the etiology for his stroke. His systemic anticoagulation was started several days ago when his atrial fibrillation was discovered. As such, I do not think this constitutes of failure of his anticoagulation. 2. Type [address] elevation myocardial infarction. This is noted in the setting of his recent CVA. His troponins have peaked and now are trending down. He has known branch vessel coronary disease based on previous cardiac catheterization done a number of years ago. 3. Chronic renal insufficiency. 4. Atrial fibrillation. Discovered several days ago during his previous hospitalization. Started on systemic anticoagulation with renally dosed Eliquis. Rate controlled with low-dose beta-blockers. 5. Coronary artery disease. Historically thought to be branch vessel disease. He had a stress myocardial perfusion imaging study during his hospitalization last week that was noted to be normal. 6. Elevated brain natrietretic peptide. Possibly related to valvular heart disease including aortic insufficiency. Not clinically in overt heart failure. Plan: I did have a conversation with his neurologist. We agreed to proceed with performance of a transesophageal echocardiogram tomorrow. If this should indicate significant clot within the left or atrial appendage, we would consider the use of systemic anticoagulation given his very high risk for recurrent emboli. If not, this certainly would help reassure us regarding the current plan is to withhold systemic anticoagulation in the short term to avoid hemorrhagic transformation of his recent CVA. In the interim, he will continue his current medications. 06/02/17 14:39 Subjective: Today, he appears to be doing a little bit better. He had a brain MRI yesterday demonstrating multiple bilateral small infarcts consistent with multiple embolic events. His overall level of consciousness has improved a little. His movement of his right upper extremity is likewise a little bit better. He remains confused. He is not oriented to his current location. He denies chest pain, shortness of breath and dyspnea. Objective: Vital Signs Temp Pulse Resp BP Pulse Ox 35.8 C L 79 18 151/94 H 99 06/02/17 11:40 06/02/17 11:40 06/02/17 11:40 06/02/17 11:40 06/02/17 11:40 Laboratory Results 06/02/17 04:00 06/02/17 04:00 06/01/17 06/02/17 06/03/17 05:59 05:59 05:59 Intake Total 10 670 120 Output Total 950 Balance 10 -280 120 PT 17.4 SEC (12.0-15.0) H 05/31/17 19:15 INR 1.43 (0.83-1.16) H 05/31/17 19:15 Physical Exam - Physical Exam General Appearance: WD/WN, no apparent distress Neck: non-tender Respiratory: lungs clear Cardiac/Chest: irregularly irregular, No edema, No gallop, No JVD Peripheral Pulses: 2+: carotid (R), carotid (L) Abdomen: non-tender Male Genitalia: deferred Rectal: deferred Neuro/Psych: alert, other (He is not oriented to his current location, he continues to have near flaccid right upper extremity hemiparesis) ICD10 Worksheet Patient Problems: Problems Problem Status Onset Elevated troponin Acute Atrial fibrillation Acute Chest pain Acute Hydronephrosis Acute Osteoarthritis of left hip Acute Pancreatitis due to biliary obstruction Acute Transaminitis Acute
--- NOTE | 2017-06-02 15:34 | HOSPPROG ---
Hospitalist Progress Note Assessment/Plan: Assessment: 86-year-old male presents with acute cardioembolic CVA in setting of type [address] elevation myocardial infarction Plan: 1. Cardioembolic CVA. Acute, d/w Dr. Sevilla, we agree that this should not be considered an eliquis failure as agent was just initiated immediately prior to occurrence, and intra-atrial thrombus may have already been present prior to starting eliquis -getting YARON to help determine whether to use systemic anticoagulation now -CTA results pending -cog changes this afternoon warranting stat HCT to r/o hemorrhagic conversion -per Dr. Muhammad, ASA 325 -LDL 61 -counseled that he will require either SNF or inpt rehab 2. Non ST-elevation myocardial infarction. Type 2, in the setting of CVA -continue monitor on telemetry -holding on bblocker given permissive htn 3. Paroxysmal atrial fibrillation. New presentation several days ago, likely CVA cause -may be appropriate to adjust to renally dosed pradaxa in 10-14 days if no intra -atrial thrombus on YARON 4. Acute kidney injury on chronic kidney disease stage III. Baseline creatinine 1.2-1.8, outside lab values reviewed, presenting level 2.0 in the setting of above, has down trended with IV fluids -continue monitor urine output serum creatinine level 5. Acute on chronic encephalopathy. Although it has been suspected that the patient has baseline level of cognitive impairment, his acute presentation was substantially altered from his baseline, characterized as confusion, agitation, disorientation, witnessed by his , and felt to be acutely unusual for this patient, most likely secondary to suspected CVA outlined above. -patient has reoriented but his concentration is poor, recognition worsening this afternoon -continue cog therapy 6. Suspected obstructive sleep apnea. Patient does not wear CPAP at home, has evidence of apnea while asleep, place CPAP mask at night Diet. Regular Prophylaxis. High risk patient, pharmacologic contraindicated in the setting of possible CVA, SCDs Code. Do not resuscitate per patient, confirmed with Disposition. Anticipated discharge uncertain, requiring all the therapy modalities, will most likely require residential facility placement. High-level of medical complexity, high risk of worsening morbidity and/or mortality, secondary to the issues outlined above. Subjective: Patient reports no pain Objective: Vital Signs Temp Pulse Resp BP Pulse Ox 35.8 C L 79 18 151/94 H 99 06/02/17 11:40 06/02/17 11:40 06/02/17 11:40 06/02/17 11:40 06/02/17 11:40 Laboratory Results 06/02/17 04:00 06/02/17 04:00 06/01/17 06/02/17 06/03/17 05:59 05:59 05:59 Intake Total 10 670 120 Output Total 950 Balance 10 -280 120 PT 17.4 SEC (12.0-15.0) H 05/31/17 19:15 INR 1.43 (0.83-1.16) H 05/31/17 19:15 - Physical Exam Constitutional: no apparent distress, not in pain, chronically ill appearing, No uncomfortable Cardiovascular: irregularly irregular, No systolic murmur, No tachycardia, No edema Respiratory: no rales or rhonchi, clear to auscultation, other ( visibly apneic while sleep) Gastrointestinal: normoactive bowel sounds, soft, non-tender abdomen, no palpable masses Neurologic: sensation intact bilaterally, weakness ( 2/5 right upper extremity motor, 4/5 right lower extremity motor), facial droop ( left meds), other ( alert awake oriented x2 to person and place not to time) Psychiatric: not anxious, encephalopathic ( concentration is 2/7, naming is 3/3) , flat affect, No agitated ICD10 Worksheet Patient Problems: Problems Problem Status Onset Elevated troponin Acute Osteoarthritis of left hip Acute Pancreatitis due to biliary obstruction Acute Transaminitis Acute Chest pain Acute Atrial fibrillation Acute Hydronephrosis Acute
[2017-06-03 05:04] LABS: % IMMATURE GRANULYOCYTES 1.5 % (0.0-1.1); ABSOLUTE IMMATURE GRANULOCYTES 0.19 10^3/uL (0.00-0.10); ADD DIFF? NO; ADD MORPH? NO; ADD SCAN? NO; ATYPICAL LYMPHOCYTE FLAG 0 (0-99); FRAGMENT RBC FLAG 0 (0-99); HEMATOCRIT 39.5 % (40.0-51.0); HEMOGLOBIN 12.7 g/dL (13.7-17.5); LEFT SHIFT FLG 10 (0-99); LIPEMIA HEMOLYSIS FLAG 80 (0-99); MEAN CELL HEMOGLOBIN 31.1 pg (27.9-34.1); MEAN CELL HEMOGLOBIN CONCENTR. 32.2 g/dL (32.4-36.7); MEAN CELL VOLUME 96.8 fL (81.5-99.8); MEAN PLATELET VOLUME 10.6 fL (8.7-11.7); PLATELET CLUMPS FLAG 0 (0-99); PLATELET COUNT 262 10^3/uL (150-400); RED BLOOD CELL COUNT 4.08 10^6/uL (4.40-6.38); RED CELL DISTRIBUTION WIDTH 16.6 % (11.5-15.2)
[2017-06-03 05:13] LABS: ALANINE AMINOTRANSFERASE 46 IU/L (21-72); ALBUMIN 3.5 g/dL (3.5-5.0); ALKALINE PHOSPHATASE 47 IU/L (38-126); ANION GAP 12 mEq/L (8-16); ASPARTATE AMINOTRANSFERASE 37 IU/L (17-59); CALCIUM 9.3 mg/dL (8.5-10.4); CARBON DIOXIDE 19 mEq/l (22-31); CHLORIDE 108 mEq/L (97-110); CREATININE 1.5 mg/dL (0.7-1.3); GLOMERULAR FILTRATION RATE 44; GLUCOSE 101 mg/dL (70-100); POTASSIUM 4.3 mEq/L (3.5-5.2); SODIUM 139 mEq/L (134-144); TOTAL PROTEIN 6.1 g/dL (6.3-8.2)
[2017-06-03] MEDS ORDERED: NS 1,000 ML IV SCH (06:00)
[2017-06-03] MEDS: LEVOTHYROXINE 50 MCG TAB PO SCH (06:25)
[2017-06-03] MEDS: ASPIRIN 325 MG TAB PO SCH (07:57)
[2017-06-03] MEDS: METOPROLOL TARTRATE 50 MG TAB PO SCH ×2 (07:57→20:39)
[2017-06-03] MEDS: predniSONE 10 MG TAB PO SCH (07:57)
[2017-06-03] MEDS: ALLOPURINOL 100 MG TAB PO SCH (07:58)
[2017-06-03] MEDS: FAMOTIDINE 20 MG TAB PO SCH (07:58)
[2017-06-03] MEDS: FENOFIBRATE 145 MG TAB PO SCH (07:58)
[2017-06-03] MEDS: MULTIVITAMINS 1 EACH TAB PO SCH (07:59)
[2017-06-03] MEDS: ROSUVASTATIN CALCIUM 20 MG TAB PO SCH (07:59)
--- NOTE | 2017-06-03 09:34 | NEUROPROG ---
Assessment: INTERVAL HISTORY: Agitated overnight, did not sleep. reports now resting this AM. No new events. EXAM: VS reviewed in EMR Limited exam due to somnolence He does open eyes to voice, but briefly. He will follow simple appendicular commands. RUE still with profound flaccid weakness. DATA: Labs, imaging and physiologic data reviewed in EMR CTA head/neck - tortuous and ectatic vessels, 30-40% calcific stenosis BICAs, intracranial vessels patent, poor contrast resolution of the intracranial peripheral vessels reflective of poor cardiac output. MRI brain wo - scattered bilateral cortical hemispheric and cerebellar ischemic strokes with some involvement of deep structures. Linear foci of acute ischemic directed in the A/P plane of the white matter of the frontopariteal regions reminiscent of watershed infarction. LDL 61 A1c pending YARON pending IMPRESSION: // ACUTE ISCHEMIC STROKE // AFIB // HTN // HLD // HEATHER // TYPE II NSTEMI // CKD Patient with acute ischemic stroke of cardioembolic etiology resulting in embolic shower to the bilateral hemispheres and cerebellum. Embolic shower likely responsible for AMS. Flaccid RUE weakness likley from right cerebellar infarct. Note of difficulty adducting right eye, which is of unknown chronicity - notes he has some baseline vision problem described as "binocular vision" - no MLF or midbrain ischemia noted. Watershed appearing infarcts may have been the result of a hypotensive episode, perhaps from an episode of RVR, but this is speculative. Cardiology evaluating overall cardiovascular status. Plan for YARON today to check for intracardiac thrombus, which could change timing of resuming anticoagulation. - Cont ASA 325mg daily - if YARON shows thrombus, switch him back on full anticoagulation, as benefit of reducing further stroke outweighs risk of hemorrhagic conversion of known stroke lesions. If no thrombus on YARON, then can transition back to anticoagulation 10-14 since admission. - allow some permissive HTN, but would intervene for SBP > 160 or DBP > 100 given his overall cardiovascular status. With possibility of watershed infarct , would also be vigilant of hypotension and try to maintain MAP greater than 70. 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 Will sign off. Please call with any further questions/concerns. 25 mins direct patient care activities on the floor. Objective: Vital Signs Temp Pulse Resp BP Pulse Ox 36.6 C 98 21 H 144/85 H 91 L 06/03/17 07:27 06/03/17 07:27 06/03/17 07:27 06/03/17 07:27 06/03/17 07:27 Laboratory Results 06/03/17 04:04 06/03/17 04:04 06/02/17 06/03/17 06/04/17 05:59 05:59 05:59 Intake Total 670 620 Output Total 950 200 Balance -280 620 -200 PT 17.4 SEC (12.0-15.0) H 05/31/17 19:15 INR 1.43 (0.83-1.16) H 05/31/17 19:15 Allergies/Adverse Reactions: No Known Allergies Allergy (Unverified 09/20/15 22:27)
[2017-06-03 09:35] LABS: HEMOGLOBIN A1C 6.1 % (4.0-6.0)
--- NOTE | 2017-06-03 12:49 | PDANEPAE ---
ANE History of Present Illness 86 year old male w/ recent (within past week) bilateral hemispheric embolic stroke. Patient with A.fib, HTN, HLD, HEATHER. Patient presents to [facility] for YARON w/ Cardioversion. ANE Past Medical History - Cardiovascular History Hx Hypertension: Yes Hx Arrhythmias: Yes Hx Chest Pain: No Hx Coronary Artery / Peripheral Vascular Disease: No Hx CHF / Valvular Disease: No Hx Palpitations: No - Pulmonary History Hx COPD: No Hx Asthma/Reactive Airway Disease: No Hx Recent Upper Respiratory Infection: No Hx Oxygen in Use at Home: No Hx Sleep Apnea: Yes Pulmonary History Comment: HEATHER LIVES AT [facility] PREV USE OF. OXYGEN,HAS NOT USED IN 2 YEARS - Neurologic History Hx Cerebrovascular Accident: No Hx Seizures: No Hx Dementia: No - Endocrine History Hx Diabetes: No Hypothyroid: No Hyperthyroid: No - Renal History Hx Renal Disorders: No - Liver History Hx Hepatic Disorders: No - Neurological & Psychiatric Hx Hx Neurological and Psychiatric Disorders: Yes Neurological / Psychiatric History Comment: Patient with bilateral hemispheric stroke documented on 05/31/17. - Cancer History Hx Cancer: Yes Cancer History Comment: BLADDER. COLON - Congenital Disorder History Hx Congenital Disorders: No - GI History GERD: no Hx Gastrointestinal Disorders: No - Other Health History Other Health History: STROKE RT EYE LOSS OF VISION 1989. OSTEOARTHRITIS. INTERMITTMENT GOUT - Chronic Pain History Chronic Pain: Yes (ARTHRITIS) - Surgical History Prior Surgeries: QING TOTAL HIP 05/2014. QING TOTAL KNEE. PARTIAL COLECTOMY. UMBILICAL HERNIA. FUSION L4-5. ORIF RT ANKLE. TURP. APPENDECTOMY. STRABISMUS. LT CATARACT ANE Review of Systems - Exercise capacity Exercise capacity: limited by disability ANE Patient History - Allergies Allergies/Adverse Reactions: No Known Allergies Allergy (Unverified 09/20/15 22:27) - Home Medications Home medications: home medication list seen and reviewed Home Medications: Aspirin [Aspirin 81mg (*)] 81 mg PO DAILY 05/15/14 [Last Taken 05/30/17] Fenofibric Acid (Choline) [TRILIPIX] 135 mg PO DAILY 05/15/14 [Last Taken ] Rosuvastatin Calcium [Crestor 20mg (*)] 20 mg PO DAILY 05/15/14 [Last Taken ] Multivitamins [Multivitamin (*)] 1 each PO DAILY 09/21/15 [Last Taken 05/30/17] Hydrocodone/APAP 5/325 [[place] 5/325 (*)] 1 tab PO Q6HRS PRN 09/12/16 [Last Taken 05/27/17] Levothyroxine [Synthroid 50 mcg (*)] 50 mcg PO DAILY06 09/12/16 [Last Taken ] predniSONE [Prednisone] 10 mg PO DAILY 05/27/17 [Last Taken 05/30/17] - NPO status NPO Status: no food or drink >8 hours - Anes Hx Anes Hx: no prior problems - Smoking Hx Smoking Status: Never smoked - Alcohol Use Alcohol Use: None - Family Anes Hx Family Anes Hx: none Family Hx Anesthesia Complications: NEG ANE Labs/Vital Signs - Labs Result Diagrams: 06/03/17 04:04 06/03/17 04:04 - Vital Signs Vital Signs: reviewed preoperatively; see RN documention for details Blood Pressure: 166/77 Heart Rate: 72 Respiratory Rate: 24 O2 Sat (%): 96 Height: 180.34 cm Weight: 95.708 kg ANE Physical Exam - Airway Mallampati Score: Class 2 Mouth exam: normal dental/mouth exam - Pulmonary Pulmonary: no respiratory distress - Cardiovascular Cardiovascular: regular rate and rhythym - ASA Status ASA Status: IV (Recent stroke; still in A.fib) ANE Anesthesia Plan Anesthesia Plan: GA with mask Total IV Anesthesia: Yes
[2017-06-03] MEDS ORDERED: PROPOFOL 200 MG/20 ML VIAL ONE (12:56)
[2017-06-03] MEDS ORDERED: PHENYLEPHRINE HCL 100 MCG/ML SYR ONE (12:58)
--- NOTE | 2017-06-03 15:55 | ECHO ---
[id number] + + [address] : : [facility] [address] : : [phone] + + Transesophageal Echocardiographic Report + ---+ :Name: MORAIMA TUTTLE WStudy Date: 06/03/2017 12:48 PM : : Hospital Admission Number: [id number] Location: [facility]: :: 1930 Gender: Male : :Age: 86 yrs Race: WH : :Reason For Study: Eval for XIAO thrombus : + ---+ Left Ventricle Left ventricular systolic function is normal. Atria Injection of contrast documented no interatrial shunt. No thrombus is detected in the left atrial appendage. Spontaneous contrast in LA. Mitral Valve The mitral valve is normal. There is mild mitral regurgitation. Aortic Valve The aortic valve is trileaflet. Mild aortic valve calcification. Moderate aortic regurgitation. Vessels Mildly dilated ascending aorta. Conclusion A 2D transesophageal echocardiogram with color flow Doppler was performed. The rhythm is atrial fibrillation. Left ventricular systolic function is normal. There are no wall motion abnormalities. Severely dilated left atrium with spontaneous echo contrast (smoke) noted. No thrombus is detected in the left atrial appendage. Trileaflet aortic valve. Mild aortic valve calcification. At least moderate aortic regurgitation. There are lambl's excrescences noted on the aortic valve. Normal appearing mitral, tricuspid and pulmonic valves. There is mild mitral regurgitation. Mildly dilated ascending aorta. No obvious cardiac source for embolism. Because of the appearance of the aortic valve, vegetations cannot be excluded. Final Reading Physician: Shawna Black signed on 06/03/2017 03:54 PM Ordering Physician: Delmar Sevilla Performed By: Delmar Sevilla MD
--- NOTE | 2017-06-03 17:27 | SOAPPROG ---
SOAP Progress Note Assessment/Plan: Assessment: 1. Acute bilateral cardioembolic CVA. Presents with altered level of consciousness associated with flaccid right upper extremity hemiparesis. His head CT scan did not indicate any evidence of bleeding. He did not have an MRI performed. He is in atrial fibrillation. This is likely the etiology for his stroke. His systemic anticoagulation was started several days ago when his atrial fibrillation was discovered. As such, I do not think this constitutes of failure of his anticoagulation. 2. Type [address] elevation myocardial infarction. This is noted in the setting of his recent CVA. His troponins have peaked and now are trending down. He has known branch vessel coronary disease based on previous cardiac catheterization done a number of years ago. 3. Chronic renal insufficiency. 4. Atrial fibrillation. Discovered several days ago during his previous hospitalization. Started on systemic anticoagulation with renally dosed Eliquis. Rate controlled with low-dose beta-blockers. 5. Coronary artery disease. Historically thought to be branch vessel disease. He had a stress myocardial perfusion imaging study during his hospitalization last week that was noted to be normal. 6. Elevated brain natrietretic peptide. Possibly related to valvular heart disease including aortic insufficiency. Not clinically in overt heart failure. Ty today did not identify a left atrial appendage thrombus or other possible cardiac source for embolism. Plan: 1. Agree with Neurology recommendations to withhold systemic anticoagulation for. About 2 weeks. At that point, I believe we should reinstitute systemic anticoagulation with Pradaxa. 2. For now he can continue his current medications. His rate in atrial fibrillation appears to be well controlled and he is on full strength aspirin per Neurology recommendations. Additionally, he is on intermediate dose Crestor. 3. I do not think that he requires further cardiovascular evaluation. 4. We will sign off for now. Please have him follow-up in our office within the next 10-14 days. 06/03/17 17:26 Subjective: He had an uneventful evening. Earlier today he underwent a transesophageal echo that did not demonstrate a clearly defined cardiac source for embolism. Specifically there were no valvular vegetations and no left atrial or left atrial appendage thrombus was identified. Objective: Vital Signs Temp Pulse Resp BP Pulse Ox 36.7 C 75 18 130/79 H 96 06/03/17 16:40 06/03/17 16:40 06/03/17 16:40 06/03/17 16:40 06/03/17 16:40 Laboratory Results 06/03/17 04:04 06/03/17 04:04 06/02/17 06/03/17 06/04/17 05:59 05:59 05:59 Intake Total 670 620 100 Output Total 950 200 Balance -280 620 -100 PT 17.4 SEC (12.0-15.0) H 05/31/17 19:15 INR 1.43 (0.83-1.16) H 05/31/17 19:15 Physical Exam - Physical Exam General Appearance: WD/WN, no apparent distress Neck: non-tender Respiratory: lungs clear Cardiac/Chest: irregularly irregular Peripheral Pulses: 2+: carotid (R), carotid (L) ICD10 Worksheet Patient Problems: Problems Problem Status Onset Elevated troponin Acute Osteoarthritis of left hip Acute Pancreatitis due to biliary obstruction Acute Transaminitis Acute Chest pain Acute Atrial fibrillation Acute Hydronephrosis Acute
--- NOTE | 2017-06-03 18:10 | HOSPPROG ---
Hospitalist Progress Note Assessment/Plan: Assessment: 86-year-old male presents with acute cardioembolic CVA in setting of type [address] elevation myocardial infarction and paroxysmal Afib Plan: 1. Cardioembolic CVA. Acute, d/w Dr. Sevilla, no thrombus noted on YARON -per Dr. Muhammad, ASA 325, and would recommend re-initiation of eliquis renally dosed in 12 days, given hemorrhagic conversion risk -LDL 61 -d/w INPT rehab today, his participation/strength is improving and he warrants reassessment tomorrow 2. Non ST-elevation myocardial infarction. Type 2, in the setting of CVA -continue monitor on telemetry -holding on bblocker given permissive htn 3. Paroxysmal atrial fibrillation. New presentation several days ago, likely CVA cause -not considered an eliquis failure b/c he had just been placed on eliquis when this event occurred -bblocker if remains hypertensive 4. Acute kidney injury on chronic kidney disease stage III. Baseline creatinine 1.2-1.8, outside lab values reviewed, presenting level 2.0 in the setting of above, has down trended with IV fluids -continue monitor urine output serum creatinine level 5. Acute on chronic encephalopathy. Although it has been suspected that the patient has baseline level of cognitive impairment, his acute presentation was substantially altered from his baseline, characterized as confusion, agitation, disorientation, witnessed by his , and felt to be acutely unusual for this patient, most likely secondary to suspected CVA outlined above. -patient has reoriented but his concentration is poor -continue cog therapy -he is much more conversant and aware today 6. Suspected obstructive sleep apnea. Patient does not wear CPAP at home, has evidence of apnea while asleep, place CPAP mask at night Diet. Regular Prophylaxis. High risk patient, pharmacologic contraindicated in the setting of possible CVA, SCDs Code. Do not resuscitate per patient, confirmed with Disposition. Anticipated discharge uncertain, requiring all the therapy modalities, will most likely require [facility] facility placement. Subjective: Counseled the patient and extensive regarding anticipated level of recovery with aggressive physical, occupational, cognitive therapy Objective: Vital Signs Temp Pulse Resp BP Pulse Ox 36.5 C 82 14 161/89 H 96 06/03/17 17:47 06/03/17 17:47 06/03/17 17:47 06/03/17 17:47 06/03/17 17:47 Laboratory Results 06/03/17 04:04 06/03/17 04:04 06/02/17 06/03/17 06/04/17 05:59 05:59 05:59 Intake Total 670 620 100 Output Total 950 500 Balance -280 620 -400 PT 17.4 SEC (12.0-15.0) H 05/31/17 19:15 INR 1.43 (0.83-1.16) H 05/31/17 19:15 - Time Spent With Patient Time Spent with Patient: greater than 35 minutes Time Spent with Patient: Greater than 35 minutes spent on this patients care, greater than 50% of time spent counseling, educating, and coordinating care regarding the above mentioned plan. - Pending Discharge Pending Discharge Within 24 Hours: Yes Pending Discharge Date: 06/04/17 Pending Discharge Time: 11:00 - Physical Exam Constitutional: chronically ill appearing Cardiovascular: irregularly irregular, No tachycardia, No edema Respiratory: no respiratory distress, no rales or rhonchi, clear to auscultation Gastrointestinal: normoactive bowel sounds, soft, non-tender abdomen, no palpable masses Neurologic: sensation intact bilaterally, weakness (3/5 motor strength right upper extremity, 4/5 motor strength right lower extremity), other (Alert awake oriented x2 to person and place not to time, mild left tongue deviation) Psychiatric: other (Concentration poor, conversant and has good short-term memory including events of the past 2 nights) ICD10 Worksheet Patient Problems: Problems Problem Status Onset Elevated troponin Acute Osteoarthritis of left hip Acute Pancreatitis due to biliary obstruction Acute Transaminitis Acute Chest pain Acute Atrial fibrillation Acute Hydronephrosis Acute
--- NOTE | 2017-06-03 18:49 | POSTANESTH ---
Post Anesthetic Evaluation Cardiovascular Status: Similar to Pre-Op Cond Respiratory Status: Similar to Pre-op Cond. Level of Consciousness/Mental Status: Can Participate in Eval Pain Control: Adequate, Prn Tx Ordered Nausea/Vomiting Control: Adequate, Prn Tx Ordered Complications Possibly Related to Anesthesia: None Noted
[2017-06-04 05:51] LABS: % IMMATURE GRANULYOCYTES 1.5 % (0.0-1.1); ABSOLUTE IMMATURE GRANULOCYTES 0.18 10^3/uL (0.00-0.10); ADD DIFF? NO; ADD MORPH? NO; ADD SCAN? NO; ATYPICAL LYMPHOCYTE FLAG 10 (0-99); FRAGMENT RBC FLAG 0 (0-99); HEMATOCRIT 39.9 % (40.0-51.0); LEFT SHIFT FLG 10 (0-99); LIPEMIA HEMOLYSIS FLAG 80 (0-99); MEAN CELL HEMOGLOBIN 31.6 pg (27.9-34.1); MEAN CELL HEMOGLOBIN CONCENTR. 32.6 g/dL (32.4-36.7); MEAN CELL VOLUME 97.1 fL (81.5-99.8); MEAN PLATELET VOLUME 10.6 fL (8.7-11.7); PLATELET CLUMPS FLAG 10 (0-99); PLATELET COUNT 268 10^3/uL (150-400); RED BLOOD CELL COUNT 4.11 10^6/uL (4.40-6.38); RED CELL DISTRIBUTION WIDTH 16.4 % (11.5-15.2)
[2017-06-04 06:03] LABS: ANION GAP 12 mEq/L (8-16); CALCIUM 9.5 mg/dL (8.5-10.4); CARBON DIOXIDE 21 mEq/l (22-31); CHLORIDE 106 mEq/L (97-110); CREATININE 1.8 mg/dL (0.7-1.3); GLOMERULAR FILTRATION RATE 36; GLUCOSE 93 mg/dL (70-100); POTASSIUM 4.1 mEq/L (3.5-5.2); SODIUM 139 mEq/L (134-144)
[2017-06-04] MEDS: LEVOTHYROXINE 50 MCG TAB PO SCH (06:14)
[2017-06-04] MEDS: FENOFIBRATE 145 MG TAB PO SCH (08:58)
[2017-06-04] MEDS: predniSONE 10 MG TAB PO SCH (08:58)
[2017-06-04] MEDS: MULTIVITAMINS 1 EACH TAB PO SCH (08:58)
[2017-06-04] MEDS: ALLOPURINOL 100 MG TAB PO SCH (08:58)
[2017-06-04] MEDS: METOPROLOL TARTRATE 50 MG TAB PO SCH (08:58)
[2017-06-04] MEDS: ASPIRIN 325 MG TAB PO SCH (08:58)
[2017-06-04] MEDS: FAMOTIDINE 20 MG TAB PO SCH (08:58)
[2017-06-04] MEDS: ROSUVASTATIN CALCIUM 20 MG TAB PO SCH (08:58)
[2017-06-04 11:41] VITALS: BP 117/64; PULSE 73; RESP 20; TEMP 97.7; O2SAT 94
--- NOTE | 2017-06-04 13:12 | PDIAF ---
- Diagnosis Code Status: Do Not Resuscitate - Medication Management Discharge Medications: Medications to Continue on Transfer Fenofibric Acid (Choline) [TRILIPIX] 135 mg PO DAILY 05/15/14 [Last Taken ] Rosuvastatin Calcium [Crestor 20mg (*)] 20 mg PO DAILY 05/15/14 [Last Taken ] Multivitamins [Multivitamin (*)] 1 each PO DAILY 09/21/15 [Last Taken 05/30/17] Hydrocodone/APAP 5/325 [[place] 5/325 (*)] 1 tab PO Q6HRS PRN 09/12/16 [Last Taken 05/27/17] Levothyroxine [Synthroid 50 mcg (*)] 50 mcg PO DAILY06 09/12/16 [Last Taken ] predniSONE [Prednisone] 10 mg PO DAILY 05/27/17 [Last Taken 05/30/17] Allopurinol [Allopurinol 100 MG (*)] 100 mg PO DAILY #30 tab 05/30/17 [Last Taken 05/30/17] Apixaban [Eliquis] 2.5 mg PO BID #60 tab 05/30/17 [Last Taken 05/31/17 09:00] Famotidine [Pepcid 20 MG (*)] 20 mg PO DAILY #30 tab 05/30/17 [Last Taken ] Methotrexate Sodium [Rheumatrex] 5 mg PO Q7D #1 tab 05/30/17 [Last Taken Unknown ] Metoprolol Tartrate [Lopressor 50 mg (*)] 50 mg PO BID #60 tab 05/30/17 [Last Taken 05/31/17 09:00] Aspirin [Aspirin 325 mg (*)] 325 mg PO DAILY #100 tab 06/04/17 [Last Taken Unknown] Discharge Medications: Refer to the Discharge Home Medication list for PRN reason. - Orders Services needed: Registered Nurse, Physical Therapy, Occupational Therapy Diet Recommendation: no restrictions on diet Diet Texture: Dysphagia 2 - Mechanically Altered - Chopped, Ground, Thin Liquids , Meds Whole in Puree, Meds Crushed in Puree Weigh Patient: weekly - Labs/Radiology BMP Date: 06/11/17 CBC Date: 06/11/17 - Follow Up Care Current Providers and Referrals: Patient,NotPresent [Unknown] - As per Instructions Flaco Muhammad DO [Doctor of Osteopathy] - 07/01/17 Delmar Sevilla MD [Medical Doctor] -
--- NOTE | 2017-06-04 13:30 | GDS ---
[f rep st] DISCHARGE SUMMARY KNOWN ACUTE DIAGNOSES: 1. Acute embolic cerebrovascular accident, emboli felt secondary to cardiac origin. 2. Atrial fibrillation, possibly paroxysmal. 3. Sos-AD-ohzucdeqn myocardial infarction with elevated troponin in the setting of known coronary a rtery disease. 4. Acute kidney injury. 5. Encephalopathy, multifactorial, but probably secondary primarily to the acute embolic cerebrovas cular accident. 6. Hypertension. 7. Anticoagulation at discharge, on aspirin, with Eliquis to be started in 12 days. 8. Do not resuscitate status. CHRONIC DIAGNOSES: 1. Possible obstructive sleep apnea. The patient does not wear a CPAP at home but has evidence of apnea while asleep. 2. Gout and pseudogout. CONSULTATIONS: Cardiology. PROCEDURES: 1. Brain MRI showing multiple diffuse acute infarcts. No acute hemorrhage. Moderate diffuse cereb ral atrophy. 2. Transesophageal echocardiogram showing no obvious source of emboli, but the appearance of the ao rtic valve and vegetations could not be excluded. The left atrium was severely dilated. HOSPITAL COURSE: This is an 86-year-old male, who had a recent prior admission for a complaint of s houlder pain and was found to have positive troponins and noted to be in atrial fibrillation at that time. He had a negative stress test with no focal wall motion abnormalities and an intact EF on th at admission. He was discharged on Eliquis and aspirin for his atrial fibrillation and returned on this admission on 05/31 with confusion and some right-sided hand weakness. An MRI confirmed the findings of multiple infarcts with probable cardiac origin. Though the patient had been on Eliquis, it was not a sufficient time of anticoagulation to exclude the possibility of cardiac source. A YARON failed to show definitive thrombus in the heart, but there were abnormalities about the aortic valve. Again, vegetation could not be excluded. He is noted to be in intermitten t atrial fibrillation, but because of his possible risk of hemorrhagic transformation, his Eliquis w as stopped and he was placed only on aspirin. The Eliquis would be restarted in approximately 12 da ys post discharge. His mental status progressively improved. His altered mental status was felt secondary to the acute infarcts. Troponins were noted to be elevated and he was felt to have an NSTEMI. He has had known baseline acute kidney injury, stage 3. His initial creatinine was 2.0 and it declined to 1.4, but then saud again to 1.8. The patient was evaluated for inpatient rehab and felt to be an adequate candidate. DISCHARGE MEDICATIONS: Synthroid 50 mcg daily, Trilipix 135 mg daily, Pepcid 20 mg daily, ASA 325 m g daily, allopurinol 100 mg daily, Lopressor 50 mg b.i.d., multivitamin daily, prednisone 10 mg marci y, Crestor 20 mg daily, [place] 5/325 mg tablet 1 p.o. q.6 hours p.r.n. pain, methotrexate 5 mg p.o. q .7 days. A new medication will be Eliquis 2.5 mg p.o. b.i.d. This medication is to be started in 12 days fro m now, which would be on June 16. PLAN: The haider will be transferred to inpatient rehab. LABORATORIES: Of note, at the time of discharge WBC 12,000, hemoglobin 13.0. Creatinine 1.8, BUN 4 0, sodium 139. Blood cultures were negative. SPECIAL NOTE: Eliquis should be restarted on June 16. TIME: This discharge required 45 minutes, greater than 50% to equal opportunity counselor and coordinate the haider' s care for inpatient rehab. /[id number]/MODL
== END 2017-06-04 14:33 | DRG 64 ==
LOC: EDUNIT# → F2W 21:26
PROVIDERS: ADMIT Internal Medicine; ATTEND Internal Medicine
PROC: B246ZZ4 Ultrasonography of Right and Left Heart, Transesophageal (ICD-10-PCS; principal; 2017-06-02)
PROC: 5A2204Z Restoration of Cardiac Rhythm, Single (ICD-10-PCS; principal; 2017-06-02)
DX: I63.40 Cerebral infarction due to embolism of unspecified cerebral artery (principal); I48.0 Paroxysmal atrial fibrillation; I21.4 Non-ST elevation (NSTEMI) myocardial infarction; G93.40 Encephalopathy, unspecified; N17.9 Acute kidney failure, unspecified; I35.1 Nonrheumatic aortic (valve) insufficiency; I25.10 Atherosclerotic heart disease of native coronary artery without angina pectoris; I12.9 Hypertensive chronic kidney disease with stage 1 through stage 4 chronic kidney disease, or unspecified chronic kidney disease; N18.3 Chronic kidney disease, stage 3 (moderate); M06.9 Rheumatoid arthritis, unspecified; G47.33 Obstructive sleep apnea (adult) (pediatric); E78.5 Hyperlipidemia, unspecified; M10.9 Gout, unspecified; Z85.038 Personal history of other malignant neoplasm of large intestine; Z98.1 Arthrodesis status; Z66 Do not resuscitate
CPT/HCPCS: 82947-QW; 92507-GN; 92523-GN; 92526-GN; 92610-GN; 97112-GO; 97116-GP; 97162-GP; 97166-GO; 97530-GO; 97530-GP; 97535-GO; G8978-GP-CK; G8979-GP-CI; G8987-GO-CL; G8988-GO-CI; G8996-GN-CK; G8997-GN-CI; G9168-GN-CK; G9169-GN-CI; G9170-GN-CK; J2370; J2704; Q9967

== ENCOUNTER 2017-06-04 15:03 | Inpatient (IN) | payer OTHER, BC ==
[2017-06-04] MEDS ORDERED: HYDROCODONE/APAP 5/325 TAB PO PRN (16:08)
[2017-06-04] MEDS ORDERED: METHOTREXATE 2.5 MG TAB PO SCH (16:15)
--- NOTE | 2017-06-04 17:31 | PDOREHIP ---
Admission [facility] - Admission - 3 Day Assessment Period Admission Date/Day 1: 06/04/17 Day 2: 06/05/17 Day 3: 06/06/17 - Active Diagnoses Comorbidities and Co-existing Conditions at Admission: 02919. DM (e.g. diabetic retinopathy, nephropathy, and neuropathy) - Skin Conditions Unhealed Pressure Ulcer (1 or more/Stage 1 or >)-Admission: 0. No
--- NOTE | 2017-06-04 18:36 | GHP ---
[f rep st] HISTORY AND PHYSICAL POST ADMISSION PHYSICIAN EVALUATION AND REHABILITATION TREATMENT PLAN DATE OF ADMISSION: 06/04/2017 DATE OF EVALUATION: 06/04/2017. TIME OF EVALUATION: 1430. REFERRING FACILITY: [facility]. REFERRING PHYSICIAN: Dr. Kenney IMPAIRMENT GROUP: 1.2. DATE OF ONSET: 05/31/2017. REHABILITATION DIAGNOSIS: Cerebrovascular accident. CONSULTING PHYSICIANS: He was seen by neurology, Dr. Muhammad; and by cardiology , Dr. Sevilla. ETIOLOGIC DIAGNOSIS: Left body involvement (right brain). HISTORY OF PRESENT ILLNESS: The patient had been home from the hospital for less than a full day on May 31, 2017. He had been hospitalized with right shoulder pain, and was diagnosed with a non ST elevation myocardial infarction as well as new onset atrial fibrillation. He was discharged on apixaban for anticoagulation. He developed symptoms initially of uncooperativeness with his . She suspected that it may be a cerebrovascular accident, though she reports that he was able to move well at that time. She took him to the emergency department where he was diagnosed with a cerebrovascular accident. While he was there, his motor function worsened. Brain MRI showed multiple diffuse acute infarcts in the bilateral cerebellar hemispheres, bilateral occipital lobes, bilateral parietal lobes, bilateral frontal lobes, left thalamus, and right caudate. There were additionally bilateral frontoparietal subcortical infarcts suggestive of watershed infarcts. There was no embolic source found including with a transesophageal echo, but due to the distribution of the infarcts this was consistent with cardioembolic due to atrial fibrillation. It was thought that with the possible watershed infarcts as well, he may have had a hypotensive episode. He was found to have acute kidney injury on top of chronic kidney disease as well. He had improvement in his function over several days and was appropriate for transfer to rehabilitation. Other studies and labs during his hospitalization: CBC showed mild anemia which was stable on the day of discharge. Hemoglobin was 13 and hematocrit was 39.9. He had an elevated white blood cell count and on the day of discharge it was 12.22. It included 1.5% immature granulocytes. Serum chemistry revealed renal insufficiency. On admission, his creatinine was 1.9 and his GFR was 34. On the day of discharge, his creatinine was 1.8 with a GFR of 36. BUN was 40. He had a slightly low carbon dioxide at 21. Liver function tests on the prior day were overall within normal limits but for a slightly low total protein. Lipid panel drawn on 06/02/2017 showed a low cholesterol at 135 and LDL at 61. Urinalysis was done on 06/01/2017. It showed 2+ protein and 4+ urobilinogen, and was otherwise within normal limits. PRECAUTIONS: He is a fall risk. He has aspiration precautions. ACTIVE COMORBIDITIES: He has the tier 3 comorbidity of hemiparesis. PAST MEDICAL HISTORY: 1. Degenerative joint disease with multiple orthopedic surgeries including bilateral knee arthroplasties. 2. Gout and pseudogout. 3. Rheumatoid arthritis with a recent diagnosis in October of this year. 4. Coronary artery disease status post non ST elevation myocardial infarction on 05/28/2017. 5. Pancreatitis and ascending cholangitis. 6. Hypertension. 7. Dyslipidemia. 8. Colon cancer. 9. Obstructive sleep apnea. PAST SURGICAL HISTORY: 1. Bilateral total knee arthroplasties. 2. Lumbar fusion. 3. Appendectomy. 4. Cholecystectomy. 5. Ventral hernia repair. 6. Left hip arthroplasty. 7. Colectomy. 8. Lysis of adhesions. MEDICATIONS PRIOR TO ADMISSION: 1. Aspirin 81 mg p.o. daily. 2. Apixaban 2.5 mg p.o. b.i.d. 3. Fenofibric acid 135 mg p.o. daily. 4. Rosuvastatin 20 mg p.o. daily. 5. Multivitamin daily. 6. Hydrocodone/acetaminophen 5/325 one p.o. q.6 hours p.r.n. 7. Levothyroxine 50 mcg p.o. daily. 8. Prednisone 10 mg p.o. daily. 9. Allopurinol 100 mg p.o. daily. 10. Famotidine 20 mg p.o. daily. 11. Methotrexate 5 mg p.o. q.7 days. 12. Metoprolol 50 mg p.o. b.i.d. ADMISSION MEDICATIONS: 1. Allopurinol 100 mg p.o. daily. 2. Apixaban 2.5 mg p.o. daily, to start on 06/16/2017. 3. Aspirin 325 mg p.o. daily. 4. Famotidine 20 mg p.o. daily. 5. Fenofibrate 145 mg p.o. daily. 6. Levothyroxine 50 mcg p.o. daily. 7. Methotrexate 5 mg p.o. q.7 days. 8. Metoprolol 50 mg p.o. b.i.d. 9. Multivitamin 1 p.o. daily. 10. Prednisone 10 mg p.o. daily. 11. Rosuvastatin 20 mg p.o. daily. 12. Hydrocodone/acetaminophen 5/325, 1 p.o. q.6 hours p.r.n. ALLERGIES: There are no known allergies. FAMILY HISTORY: Noncontributory. PSYCHOSOCIAL HISTORY: He is . He lives with his at the [facility]. 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 He is a nonsmoker and does not use alcohol. REVIEW OF SYSTEMS: He has a slight cough. He denies dyspnea. He has been on oxygen intermittently in the past. He reports that he was not tolerant of a CPAP mask in the hospital because it was too noisy. He denies chest pain or palpitations. He denies nausea, vomiting, constipation, or diarrhea. He does not have a dry mouth. Joint pain is well controlled with his current medications. He denies dysuria or urinary frequency. He denies headache. He thinks his vision is baseline but it is impaired. He is blind in the right eye. He has weakness in the right upper extremity, but this has improved somewhat. He denies loss of sensation or numbness or tingling of the extremities. He denies skin rash or skin breakdown. PHYSICAL EXAM: VITAL SIGNS: Blood pressure is 121/69, heart rate is 76, respiratory rate is 20. Oxygen saturation is 95% on 2 L. Temperature is 36.6 degrees centigrade. His weight is 93.7 kg for a body mass index of 28.9. GENERAL: This is an overweight elderly man who appears his chronologic age, cooperative, and in no acute distress. HEENT: Extraocular movements are intact , though he lacks convergence with the right eye. Pupils are equal and round. The left pupil is reactive. The right pupil reacts together with the left pupil but does not react to light directly shined at the right pupil. Mucous membranes are moist. He has a crowded airway, Mallampati class 4. Dentition is in good condition. NECK: Supple. HEART: There is a regular rate and rhythm. There are no murmurs, rubs, or gallops auscultated. LUNGS: There are crackles in the left lower lobe. Otherwise, lungs are clear to auscultation bilaterally. ABDOMEN: Soft, nontender, nondistended with somewhat hyperactive bowel sounds. There is no hepatosplenomegaly. EXTREMITIES: There is no cyanosis, clubbing, or edema. Radial and dorsalis pedis pulses are 2+ bilaterally. NEUROLOGIC: He is alert. He is oriented to his location and general situation. He is disoriented to the month and the date of the month. Cranial nerves 2-12 are grossly intact. 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 His lower extremities appear to have 4+ to 5 strength in all major muscle groups. Sensation is intact to light touch. Deep tendon reflexes are 2+ bilaterally at the biceps and patella, and hypoactive at the Achilles tendons. Plantar reflexes upgoing on the right and indeterminate on the left. He has word- finding difficulties and a tendency to lose track in mid sentence if he is speaking a long sentence. He speaks slowly and he has some delay in his response to questions. CURRENT LEVEL OF FUNCTION: Per the pre-admission screen. Regarding diet, feeding, and swallowing, he was on a dysphagia 2 diet with thin liquids. He was noted to have moderate dysphagia. He required maximal assistance when trying to use the right upper extremity for feeding due to decreased grasp. Regarding grooming, he needed moderate assistance with verbal and tactile cues to use the right upper extremity to brush his teeth. Regarding dressing, he needed minimal assistance for the upper body and maximal assistance for the lower body. For toileting, he required maximal assistance for clothing management and maryan care. He could transfer to the toilet with moderate assistance and voice cuing. He was continent of bladder and bowel. Regarding bed mobility, he required moderate to maximal assist with voice cues. For transfers, he required minimal to moderate assist of 1-2 with voice cues. Balance: Required contact guard for standing. Endurance was fair. He was able to ambulate 25 feet with minimal to moderate assistance of 2. Communication deficit was noted to be moderate to severe. Regarding cognition, he was noted to have moderate to severe impairment in attention, memory, judgment, safety, and problem solving. IMPRESSION: The patient is an 86-year-old man with coronary artery disease, status post non ST elevation myocardial infarction and new onset atrial fibrillation who had a multifocal embolic cerebrovascular accident the day of discharge from the hospital. Anticoagulation had been initiated with apixaban, but likely too soon to have a significant effect and prevent the shower of emboli that happened. He has multiple deficits including right-sided weakness, deficits to mobility and activities of daily living, dysphagia, and cognitive impairment. He is appropriate for inpatient rehabilitation, where he will benefit from physical and occupational therapy to optimize his mobility and activities of daily living and speech and language pathology regarding swallowing and cognition. He will benefit from nursing care due to his fall risk to maintain skin integrity regarding bowel and bladder and for medication administration. He will benefit from the care of a physician regarding multiple medical comorbidities including atrial fibrillation, risk for deep venous thrombosis, risk for neurologic deterioration, and hemorrhagic conversion, hypertension, dyslipidemia, gout, pseudogout, rheumatoid arthritis, and renal function. His goal is to return home with his and supportive services as necessary. For a safe discharge, he will need to achieve modified independence for eating, grooming, and bed mobility. He may require assistance for dressing and bathing. He will likely require close standby assistance for transfers. He may require wheelchair for mobility depending on how he does with ambulation. It is hoped he will progress to a regular diet and have improvements in his cognition. He will need medication management by his spouse or by the assisted living facility. He will have therapy with physical therapy, occupational therapy and speech and language pathology for 60 minutes per day per discipline on 5-7 days per week. His expected duration is 14-21 days. It is anticipated that upon discharge he will benefit from home health services including nurse, speech and language pathology, nurse's aide, social work, occupational therapy, physical therapy, and a stroke support group. ASSESSMENT AND PLAN: 1. Multifocal cerebrovascular accident, cardioembolic source, with right-sided weakness and deficits to mobility and self-care. Physical Therapy and Occupational Therapy to optimize mobility and activities of daily living. 2. Dysphagia and cognitive impairment to be evaluated and treated per Speech and Language Pathology. Continue dysphagia 2 diet and thin liquids. 3. Atrial fibrillation. Continue aspirin as ordered out of the hospital. Apixaban is to restart 12 days after discharge from the hospital and has been ordered to begin on 06/16/2017. Continue metoprolol 50 mg b.i.d. 4. Dyslipidemia. Continue fenofibrate and rosuvastatin. 5. Hypothyroidism. Continue levothyroxine supplement. 6. Gout, pseudogout and rheumatoid arthritis. 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 Hydrocodone/ acetaminophen has been prescribed for pain as well. 7. Acute kidney injury and chronic kidney disease. Will recheck a basic metabolic profile in the morning. His renal function had improved in the hospital and then deteriorated. He denies symptoms of dry mouth or thirst but the BUN/creatinine ratio is consistent with possible dehydration. Consider intravenous hydration depending on lab results in the morning. On review of intake and output during his recent hospitalization, it has been low. Intake has been recorded ranging from 300 cc to 670 cc per day. 8. Code status was ordered as do not resuscitate in the hospital and this will be continued. 9. Obstructive sleep apnea. Intolerant of CPAP. Continue oxygen needed. /[id number]/MODL MTDD
[2017-06-04] MEDS: METOPROLOL TARTRATE 50 MG TAB PO SCH (19:49)
[2017-06-05] MEDS: LEVOTHYROXINE 50 MCG TAB PO SCH (06:08)
[2017-06-05] MEDS: MULTIVITAMINS 1 EACH TAB PO SCH (08:11)
[2017-06-05] MEDS: ROSUVASTATIN CALCIUM 20 MG TAB PO SCH (08:11)
[2017-06-05] MEDS: predniSONE 10 MG TAB PO SCH (08:11)
[2017-06-05] MEDS: ASPIRIN 325 MG TAB PO SCH (08:11)
[2017-06-05] MEDS: METOPROLOL TARTRATE 50 MG TAB PO SCH ×2 (08:11→20:58)
[2017-06-05] MEDS: ALLOPURINOL 100 MG TAB PO SCH (08:11)
[2017-06-05] MEDS: FAMOTIDINE 20 MG TAB PO SCH (08:11)
[2017-06-05] MEDS ORDERED: FENOFIBRATE 145 MG TAB PO SCH (09:00)
[2017-06-05] MEDS ORDERED: FENOFIBRIC ACID 135 MG PO SCH (09:00)
--- NOTE | 2017-06-05 09:51 | SOAPPROG ---
SOAP Progress Note Assessment/Plan: Assessment: 86-year-old male with multifocal embolic CVA immediately following discharge from hospital for a non ST elevation [place] and new onset atrial fibrillation. Deficits in mobility, self-care, and cognition as well as dysphagia. Today's update: Disc getting started with therapies, no concerns today. Mildly hypertensive however slightly higher than previous readings. Will continue to monitor and consider increase in metoprolol if necessary. At the time of this note his labs are still pending, we will seek a creatinine baseline of 1.2, consider IV fluids if not taking good p.o.. this is the 1st time meeting the patient, all medical issues are new to this provider. will follow up on labs and addend this note, will also order follow-up labs to monitor renal function * Impairments in mobility, self-care, cognition, dysphagia: Physical and occupational therapy to treat impairments in mobility and self-care, speech language pathology for impairments in cognition and dysphagia. Currently on a dysphagia 2 diet and thin liquids. * Multifocal stroke, cardioembolic source, right-sided weakness: Continue apixaban to start 06/16/2017, rosuvastatin, fenofibrate. Monitor for neurological recovery * atrial fibrillation: Continue aspirin and apixaban, which is to start on 02/2017. Continue metoprolol 50 mg p.o. twice daily. 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 Continue hydrocodone / acetaminophen for pain as needed. * acute kidney injury with chronic kidney disease: Ensure adequate hydration, monitor labs periodically for continued hydration and renal function. Consider IV fluids if necessary * Code status: Do not resuscitate * obstructive sleep apnea: Does not tolerate CPAP, continue oxygen as needed * Disc O: Plan to return home after discharge with his and supportive services is necessary. He will need modified independence for eating, grooming , and bed mobility, and may require some assistance for dressing and bathing. He may require someone standby for transfers and wheelchair use. Expected duration is 14-21 days. Plan for home health therapy with PT, OT, speech, stroke support group. 06/05/17 09:43 06/05/17 09:52 Subjective: Chief complaint: Renal function and neurological status No acute events overnight. Overnight labs are still pending. Patient's and the patient both feel that the p. o. intake has been rather poor, they will increase the p. o. intake to keep up with renal function. Denies any new shortness of breath or chest pain, any new numbness, tingling, or weakness. The both endorse that his right arm function is improving and he was able to lift above his head. Therapy eval is pending today Objective: Vital Signs Temp Pulse Resp BP Pulse Ox 36.5 C 111 H 20 143/81 H 98 06/05/17 06:42 06/05/17 06:42 06/05/17 06:42 06/05/17 06:42 06/05/17 06:42 06/04/17 06/05/17 06/06/17 05:59 05:59 05:59 Intake Total 100 120 Output Total 150 Balance -50 120 Physical Exam - Physical Exam General Appearance: WD/WN, alert, no apparent distress EENT: No scleral icterus (R), No scleral icterus (L) Respiratory: No respiratory distress, No accessory muscle use Cardiac/Chest: normal peripheral pulses, regular rate, rhythm Extremities: No pedal edema, No swelling Neuro/Psych: alert, normal mood/affect, motor weakness ( right hemiplegia, able to raise arm up just above head level), other ( slowed speech, seemed logical in conversation, not tested in depth) ICD10 Worksheet Patient Problems: Problems Problem Status Onset Atrial fibrillation Acute Chest pain Acute Elevated troponin Acute Hydronephrosis Acute Osteoarthritis of left hip Acute Pancreatitis due to biliary obstruction Acute Transaminitis Acute
[2017-06-05 10:25] LABS: ANION GAP 15 mEq/L (8-16); CALCIUM 9.2 mg/dL (8.5-10.4); CARBON DIOXIDE 21 mEq/l (22-31); CHLORIDE 105 mEq/L (97-110); CREATININE 1.7 mg/dL (0.7-1.3); GLOMERULAR FILTRATION RATE 38; GLUCOSE 84 mg/dL (70-100); SODIUM 141 mEq/L (134-144)
[2017-06-05] MEDS ORDERED: NS 1,000 ML IV SCH (11:30)
[2017-06-06] MEDS: LEVOTHYROXINE 50 MCG TAB PO SCH (07:11)
[2017-06-06] MEDS: METOPROLOL TARTRATE 50 MG TAB PO SCH ×2 (07:11→20:00)
[2017-06-06] MEDS: FAMOTIDINE 20 MG TAB PO SCH (08:39)
[2017-06-06] MEDS: ASPIRIN 325 MG TAB PO SCH (08:41)
[2017-06-06] MEDS: ALLOPURINOL 100 MG TAB PO SCH (08:42)
[2017-06-06] MEDS: predniSONE 10 MG TAB PO SCH (08:42)
[2017-06-06] MEDS: ROSUVASTATIN CALCIUM 20 MG TAB PO SCH (08:43)
[2017-06-06] MEDS: MULTIVITAMINS 1 EACH TAB PO SCH (08:43)
--- NOTE | 2017-06-06 10:20 | SOAPPROG ---
SOAP Progress Note Assessment/Plan: Assessment: BUN and creatinine are both elevated, beyond prior. Placed on IV given 1 L normal saline. Will monitor clinically and consider a 2nd L, but will be careful given some history of cardiac AFib. Original Note: Assessment/Plan: Assessment: 86-year-old male with multifocal embolic CVA immediately following discharge from hospital for a non ST elevation [place] and new onset atrial fibrillation. Deficits in mobility, self-care, and cognition as well as dysphagia. Today's update: Reports significant fatigue, despite sleeping well last night. BUN/Cr were elevated and pt appears dehydrated. Will repeat 1 liter of NS and repeat labs in am. * Multifocal stroke, cardioembolic source, right-sided weakness: Continue apixaban to start 06/16/2017, rosuvastatin, fenofibrate. Monitor for neurological recovery * Dehydration: Cr 1.7/BUN 42. Goal is creatinine baseline of 1.2, cont IV fluids as he is not taking good p.o.. * Dysphagia: Barium swallow showed silent aspiration on thin liquids, cont nectar thick. * Impairments in mobility, self-care, cognition, dysphagia: Physical and occupational therapy to treat impairments in mobility and self-care, speech language pathology for impairments in cognition and dysphagia. Currently on a dysphagia 2 diet and thin liquids. * Atrial fibrillation: Continue aspirin and apixaban, which is to start on 02/2017. Continue metoprolol 50 mg p.o. twice daily. 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 Continue hydrocodone / acetaminophen for pain as needed. * Acute kidney injury with chronic kidney disease: Ensure adequate hydration, monitor labs periodically for continued hydration and renal function. Consider IV fluids if necessary * Code status: Do not resuscitate * obstructive sleep apnea: Does not tolerate CPAP, continue oxygen as needed * Dispo: Plan to return home after discharge with his and supportive services as necessary. He will need modified independence for eating, grooming , and bed mobility, and may require some assistance for dressing and bathing. He may require someone standby for transfers and wheelchair use. Expected duration is 14-21 days. Plan for home health therapy with PT, OT, speech, stroke support group. Plan: Cont Dr Campbell's rehab treatment plan. 06/06/17 10:25 Objective: Vital Signs Temp Pulse Resp BP Pulse Ox 36.4 C 79 18 160/84 H 94 06/06/17 05:53 06/06/17 05:53 06/06/17 05:53 06/06/17 05:53 06/06/17 05:53 Laboratory Results 06/05/17 06:00 06/05/17 06/06/17 06/07/17 05:59 05:59 05:59 Intake Total 100 320 50 Output Total 150 400 Balance -50 -80 50 Physical Exam - Physical Exam General Appearance: mild distress (2/2 fatigue, dedies SOB) Respiratory: lungs clear Cardiac/Chest: irregularly irregular Abdomen: normal bowel sounds, soft Skin: normal color, warm/dry, other (Peripheral line in RUE) Extremities: No pedal edema, No calf tenderness Neuro/Psych: normal mood/affect (flat), oriented x 3, motor weakness, other (no acute changes) ICD10 Worksheet Patient Problems: Problems Problem Status Onset Atrial fibrillation Acute Chest pain Acute Elevated troponin Acute Hydronephrosis Acute Osteoarthritis of left hip Acute Pancreatitis due to biliary obstruction Acute Transaminitis Acute
[2017-06-06] MEDS: FENOFIBRATE 145 MG TAB PO SCH (12:17)
[2017-06-06] MEDS ORDERED: NS 1,000 ML IV SCH (20:00)
[2017-06-06] MEDS ORDERED: NS 1,000 ML IV ONE (20:00)
[2017-06-07] MEDS: LEVOTHYROXINE 50 MCG TAB PO SCH (05:48)
[2017-06-07] MEDS: METOPROLOL TARTRATE 50 MG TAB PO SCH ×2 (08:01→20:04)
[2017-06-07] MEDS: predniSONE 10 MG TAB PO SCH (08:03)
[2017-06-07] MEDS: FAMOTIDINE 20 MG TAB PO SCH (08:04)
[2017-06-07] MEDS: ROSUVASTATIN CALCIUM 20 MG TAB PO SCH (08:31)
[2017-06-07] MEDS: ASPIRIN 325 MG TAB PO SCH (08:31)
[2017-06-07] MEDS: ALLOPURINOL 100 MG TAB PO SCH (08:32)
[2017-06-07] MEDS: MULTIVITAMINS 1 EACH TAB PO SCH (08:32)
[2017-06-07] MEDS: FENOFIBRATE 145 MG TAB PO SCH (08:33)
[2017-06-07 08:55] LABS: ANION GAP 13 mEq/L (8-16); CALCIUM 9.4 mg/dL (8.5-10.4); CARBON DIOXIDE 19 mEq/l (22-31); CHLORIDE 107 mEq/L (97-110); CREATININE 1.6 mg/dL (0.7-1.3); GLOMERULAR FILTRATION RATE 41; GLUCOSE 79 mg/dL (70-100); SODIUM 139 mEq/L (134-144)
--- NOTE | 2017-06-07 11:02 | SOAPPROG ---
SOAP Progress Note Assessment/Plan: Assessment: Assessment/Plan: Assessment: 86-year-old male with multifocal embolic CVA immediately following discharge from hospital for a non ST elevation [place] and new onset atrial fibrillation. Deficits in mobility, self-care, and cognition as well as dysphagia. Today's update: He and report significant fatigue, despite sleeping day and night. Pt witnessed to have obvious obstructive sleep apnea, impeding his ability to fall and stay asleep and get restorative sleep. BUN/Cr were slightly improved, but still elevated and pt appears dehydrated, as he gets minimal PO hydration 2/2 honey thick restrictions. Pt knocked out his own IV last night after 350ml NS, and the IV line could not be restored. Will repeat 1 liter of NS, again tonight. * Multifocal stroke, cardioembolic source, right-sided weakness: Continue apixaban to start 06/16/2017, rosuvastatin, fenofibrate. Monitor for neurological recovery * Dehydration: Cr 1.6/BUN 40. Goal is creatinine baseline of 1.2, cont IV fluids as he is not taking good p.o.. * Dysphagia: Barium swallow showed silent aspiration on thin liquids, on honey thick restrictions. * Impairments in mobility, self-care, cognition, dysphagia: Physical and occupational therapy to treat impairments in mobility and self-care, speech language pathology for impairments in cognition and dysphagia. Currently on a dysphagia 2 diet and thin liquids. * Atrial fibrillation: Continue aspirin and apixaban, which is to start on 02/2017. Continue metoprolol 50 mg p.o. twice daily. 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 Continue hydrocodone / acetaminophen for pain as needed. * Acute kidney injury with chronic kidney disease: Ensure adequate hydration, monitor labs periodically for continued hydration and renal function. Consider IV fluids if necessary * Code status: Do not resuscitate * obstructive sleep apnea: Does not tolerate CPAP, and refused it in past. However insists that he will try it here, and she will help overnight. will add 2L O2 via [place] just to optimize oxygenation. * Dispo: Plan to return home after discharge with his and supportive services as necessary. He will need modified independence for eating, grooming , and bed mobility, and may require some assistance for dressing and bathing. He may require someone standby for transfers and wheelchair use. Expected duration is 14-21 days. Plan for home health therapy with PT, OT, speech, stroke support group. Plan: Cont Dr Campbell's rehab treatment plan. Initiate CPAP, Cont to optimize hydration. 06/07/17 10:54 Subjective: Patient is extremely fatigued, falling asleep in mid sentence, and within minutes is apnic, struggling with air hunger which quickly wakes him up with a quiet gasp, only to start the cycle over again. O2 sat 87% at rest. 97% with encouragement to wake up and breath. He is not overtly reporting SOB. Mild dry cough Afeb Objective: Vital Signs Temp Pulse Resp BP Pulse Ox 36.8 C 67 18 147/82 H 93 06/07/17 06:08 06/07/17 09:19 06/07/17 06:08 06/07/17 09:19 06/07/17 06:08 Laboratory Results 06/07/17 06:15 06/06/17 06/07/17 06/08/17 05:59 05:59 05:59 Intake Total 320 238 240 Output Total 400 Balance -80 238 240 Physical Exam - Physical Exam General Appearance: mild distress (fatigu, sleep apnea) Respiratory: lungs clear, crackles (slight R base) Cardiac/Chest: irregularly irregular Abdomen: soft Skin: normal color, warm/dry Extremities: No pedal edema, No calf tenderness Neuro/Psych: alert, oriented x 3, motor weakness (global), other (no acute changes) ICD10 Worksheet Patient Problems: Problems Problem Status Onset Atrial fibrillation Acute Chest pain Acute Elevated troponin Acute Hydronephrosis Acute Osteoarthritis of left hip Acute Pancreatitis due to biliary obstruction Acute Transaminitis Acute
[2017-06-07] MEDS ORDERED: NS 1,000 ML IV ONE (18:00)
[2017-06-07] MEDS: SENNOSIDES 1 TAB PO PRN (20:04)
[2017-06-08] MEDS: LEVOTHYROXINE 50 MCG TAB PO SCH (06:43)
[2017-06-08] MEDS: ASPIRIN 325 MG TAB PO SCH (09:11)
[2017-06-08] MEDS: ALLOPURINOL 100 MG TAB PO SCH (09:11)
[2017-06-08] MEDS: FAMOTIDINE 20 MG TAB PO SCH (09:12)
[2017-06-08] MEDS: predniSONE 10 MG TAB PO SCH (09:12)
[2017-06-08] MEDS: ROSUVASTATIN CALCIUM 20 MG TAB PO SCH (09:12)
[2017-06-08] MEDS: MULTIVITAMINS 1 EACH TAB PO SCH (09:12)
[2017-06-08] MEDS: METOPROLOL TARTRATE 50 MG TAB PO SCH (09:12)
[2017-06-08] MEDS: SENNOSIDES 1 TAB PO PRN (09:13)
[2017-06-08] MEDS: CARBOXYMETHYLCELLULOSE 0.5% 0.4 ML DROPERETTE EACHEYE PRN (09:30)
--- NOTE | 2017-06-08 09:52 | SOAPPROG ---
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 Bilateral frontoparietal subcortical infarcts suggestive of watershed infarcts. Stroke followed discharge from hospital for a non ST elevation IA and new onset atrial fibrillation. Deficits in mobility, self-care, and cognition as well as dysphagia. * Multifocal stroke, cardioembolic source, right-sided weakness: Initial FIM 28 on 06/08/17. Reduced alertness effects participation in therapies. Incontinent bowel and bladder. Moderate assist of 1-2 for bed mobility, moderate assist of 2 for transfers. Max assist for activities of daily living. Ataxic bilateral upper extremities but otherwise can move them. Continue physical therapy and occupational therapy. Monitor for neurological recovery * Dysphagia: Barium swallow showed silent aspiration on thin liquids. He has been made NPO by PRODUCTION SUPPORT SUPERVISOR. Reduced attention impacts swallowing safety. * Dehydration: Cr 1.6/BUN 40 on 06/07/2017. Received 1 L of IV fluids overnight 827-06/08/2017. Repeat BMP 06/08/2017. Poor short term prognosis to recover swallowing. Will insert PICC line and hydrate. Change medications to rectal or transdermal to the extent that it is possible. * Acute kidney injury with chronic kidney disease: Creatinine stable at 1.6 and GFR 41 after 1 L IV hydration overnight 82-. Continue to monitor as he is hydrated. * Somnolence. No transdermal or IV stimulants are available on formulary. Trial of caffeine 200 mg IV in the a.m. starting 06/09/2017. * Atrial fibrillation: Continue aspirin. Initiate apixaban 06/16/2017 if he recovers swallowing. Monitor clinically * Hypertension: Blood pressure running high on metoprolol 50 mg twice daily. Transdermal clonidine until he recovers swallowing. * Dyslipidemia: Hold fenofibrate and rosuvastatin until he recoevers swallowing. * Hypothyroidism: Continue levothyroxine * Gout, pseudogout, and rheumatoid arthritis: Hold allopurinol, continue methotrexate. Substitute IV dexamethasone for PO prednisone. Has not needed hydrocodone /acetaminophen for pain. * Code status: Do not resuscitate * Obstructive sleep apnea: Continue efforts with CPAP. Continue supplemental oxygen. Attended staffing, 15 minutes. Discussed with case management, dietitian, nursing, PT, OT, PRODUCTION SUPPORT SUPERVISOR. has been intending to bring him home. Attended neuro add meeting with family preservation caseworker and PRODUCTION SUPPORT SUPERVISOR and . Discussed need for IV hydration; discussed lack of indication for or efficacy of feeding tube in the setting of elderly man with cognitive impairment. agrees to plan for IV hydration and alternate route to p.o. for provision of medications. Discussed that he may not recover. Consider full palliative Care consult. We will repeat staffing on 06/12/2017. Medication changes 06/08/17:: transdermal clonidine 0.1 mg replaces metoprolol; Rectal aspirin replaces oral aspirin. IV dexamethasone replaces prednisone. IV levothyroxine replaces p. o.. IM methotrexate replace his oral. IV pantoprazole replaces famotidine. Medications held: Amlodipine, fenofibrate, rosuvastatin. 06/08/17 17:30 Subjective: Feels thirsty. Dislikes thickened liquids. Very reduced appetite; does not like the food. Reports that he is sleeping okay. Perseverates on food. Objective: Vital Signs Temp Pulse Resp BP Pulse Ox 36.5 C 69 20 144/80 H 98 06/08/17 06:00 06/08/17 09:12 06/08/17 06:00 06/08/17 09:12 06/08/17 06:00 Laboratory Results 06/07/17 06:15 06/07/17 06/08/17 06/09/17 05:59 05:59 05:59 Intake Total 238 1378 Balance 238 1378 - Time Spent With Patient Time Spent With Patient: Greater than 35 minutes floor time today, including more than 50% of time in coordination of care during staffing meeting, and counseling of patient's during neuro ed meeting. Physical Exam - Physical Exam General Appearance: WD/WN, alert, no apparent distress Respiratory: normal breath sounds, crackles (Few bibasilar), No rhonchi, No wheezing Cardiac/Chest: JVD, irregularly irregular, No edema, No diastolic murmur, No systolic murmur Abdomen: normal bowel sounds, non-tender, soft, No distended Neuro/Psych: alert, normal mood/affect ICD10 Worksheet Patient Problems: Problems Problem Status Onset Atrial fibrillation Acute Chest pain Acute Elevated troponin Acute Hydronephrosis Acute Osteoarthritis of left hip Acute Pancreatitis due to biliary obstruction Acute Transaminitis Acute
[2017-06-08] MEDS: FENOFIBRATE 145 MG TAB PO SCH (11:26)
[2017-06-08 12:21] LABS: ANION GAP 10 mEq/L (8-16); CALCIUM 9.4 mg/dL (8.5-10.4); CARBON DIOXIDE 22 mEq/l (22-31); CHLORIDE 107 mEq/L (97-110); CREATININE 1.6 mg/dL (0.7-1.3); GLOMERULAR FILTRATION RATE 41; GLUCOSE 112 mg/dL (70-100); POTASSIUM 3.9 mEq/L (3.5-5.2); SODIUM 139 mEq/L (134-144)
[2017-06-08] MEDS ORDERED: ALTEPLASE 2 MG VIAL IVP PRN (13:09)
[2017-06-08] MEDS: NS W/ 20 KCl/L 1,000 ML IV SCH (18:19)
[2017-06-08] MEDS ORDERED: ACETAMINOPHEN 650 MG SUPP PR PRN (18:44)
[2017-06-08] MEDS: BISACODYL 10 MG SUPP PR PRN (19:01)
[2017-06-09] MEDS: PANTOPRAZOLE SODIUM 40 MG in NS 100 ML IV SCH (07:30)
[2017-06-09] MEDS: NS W/ 20 KCl/L 1,000 ML IV SCH ×2 (07:31→22:27)
[2017-06-09] MEDS: ASPIRIN RECTAL 300 MG SUPP PR SCH (07:37)
[2017-06-09] MEDS: BISACODYL 10 MG SUPP PR PRN (07:37)
[2017-06-09] MEDS: CARBOXYMETHYLCELLULOSE 0.5% 0.4 ML DROPERETTE EACHEYE PRN (07:38)
[2017-06-09] MEDS ORDERED: NS IV ONE (08:00)
[2017-06-09] MEDS ORDERED: SODIUM BENZOATE IV ONE (08:00)
[2017-06-09] MEDS ORDERED: CAFFEINE IV ONE (08:00)
[2017-06-09 08:52] LABS: ANION GAP 13 mEq/L (8-16); CARBON DIOXIDE 19 mEq/l (22-31); CHLORIDE 108 mEq/L (97-110); CREATININE 1.6 mg/dL (0.7-1.3); GLOMERULAR FILTRATION RATE 41; GLUCOSE 77 mg/dL (70-100); POTASSIUM 4.2 mEq/L (3.5-5.2); SODIUM 140 mEq/L (134-144)
[2017-06-09] MEDS ORDERED: *PHM DO NOT USE-DEXAMETHASONE 0.2 MG/ML IV PED/NEWBORN SYR IV SCH (09:00)
[2017-06-09] MEDS ORDERED: LEVOTHYROXINE 100 MCG/5 ML SYR IVP SCH (10:00)
[2017-06-09] MEDS: ALLOPURINOL 100 MG TAB PO SCH (10:20)
[2017-06-09] MEDS: DEXAMETHASONE 4 MG/ML VIAL IVP SCH (10:45)
--- NOTE | 2017-06-09 12:38 | SOAPPROG ---
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 Bilateral frontoparietal subcortical infarcts suggestive of watershed infarcts. Stroke followed discharge from hospital for a non-ST elevation [place] and new onset atrial fibrillation. Deficits in mobility, self-care, and cognition as well as dysphagia. * Multifocal stroke, cardioembolic source, right-sided weakness: Initial FIM 28 on 06/08/17. Reduced alertness effects participation in therapies. Incontinent bowel and bladder. Moderate assist of 1-2 for bed mobility, moderate assist of 2 for transfers. Max assist for activities of daily living. Ataxic bilateral upper extremities but otherwise can move them. Continue physical therapy and occupational therapy. Monitor for neurological recovery * Dysphagia: Barium swallow showed silent aspiration on thin liquids. He has been made NPO by TECHNICAL SUPPORT ENGINEER. Reduced attention impacts swallowing safety. * Dehydration: Cr 1.6/BUN 40 on 06/07/2017. Received 1 L of IV fluids overnight 827-06/08/2017. Repeat BMP 06/08/2017 with improved BUN but creatinine & GFR unchanged. Poor short term prognosis to recover swallowing. Will insert PICC line inserted 06/08/17. Medications changed to rectal or transdermal to the extent that it is possible. * Acute kidney injury with chronic kidney disease: Creatinine stable at 1.6 and GFR 41 after 1 L IV hydration overnight 827-828. Continue to monitor as he is hydrated. * Back pain overnight. Unclear etiology. Will order low-dose IV morphine p.r.n.. * Somnolence. No transdermal or IV stimulants are available on formulary. Trial of caffeine 200 mg IV starting 06/09/2017; was unavailable in am; will receive 1st dose 06/09/2017 in the afternoon.. * Atrial fibrillation: Continue aspirin. Initiate apixaban 06/16/2017 if he recovers swallowing. Monitor clinically * Hypertension: Blood pressure running high on metoprolol 50 mg twice daily. Transdermal clonidine until he recovers swallowing. Blood pressure elevated in the a.m. 06/09/2017; consider increasing clonidine from 0.1 mg patch to 0.2. * Dyslipidemia: Hold fenofibrate and rosuvastatin until he recovers swallowing. * Hypothyroidism: Continue levothyroxine * Gout, pseudogout, and rheumatoid arthritis: Hold allopurinol, continue methotrexate. Substitute IV dexamethasone for PO prednisone. Has not needed hydrocodone /acetaminophen for pain. * Code status: Do not resuscitate * Obstructive sleep apnea: Continue efforts with CPAP. Continue supplemental oxygen. has been intending to bring him home. Attended neuro add meeting with case folder TECHNICAL SUPPORT ENGINEER and on 06/08/2017. Discussed need for IV hydration; discussed lack of indication for or efficacy of feeding tube in the setting of elderly man with cognitive impairment. agrees to plan for IV hydration and alternate route to p.o. for provision of medications. Discussed that he may not recover. Consider full palliative Care consult. We will repeat staffing on 06/12/2017. Medication changes 06/08/17:: transdermal clonidine 0.1 mg replaces metoprolol; Rectal aspirin replaces oral aspirin. IV dexamethasone replaces prednisone. IV levothyroxine replaces p. o.. IM methotrexate replace his oral. IV pantoprazole replaces famotidine. Medications held: Amlodipine, fenofibrate, rosuvastatin. 06/09/17 12:31 Subjective: Complains of poor sleep overnight and says that he had kidney pain. Currently comfortable. No difficulty with urinating. No fevers or chills. Complains that he does not like the thickened liquids which is offer during speech therapy. Objective: Vital Signs Temp Pulse Resp BP Pulse Ox 37.1 C 85 16 169/91 H 94 06/09/17 07:20 06/09/17 07:20 06/09/17 07:20 06/09/17 07:20 06/09/17 07:20 Laboratory Results 06/09/17 06:40 06/08/17 06/09/17 06/10/17 05:59 05:59 05:59 Intake Total 1378 150 997 Output Total 200 Balance 1378 -50 997 Physical Exam - Physical Exam General Appearance: WD/WN, alert, no apparent distress Respiratory: normal breath sounds, crackles (Few LLE), No rhonchi, No wheezing Cardiac/Chest: irregularly irregular, No edema, No tachycardia, No diastolic murmur, No systolic murmur Back: No CVA tenderness Skin: normal color, warm/dry Neuro/Psych: alert, normal mood/affect ICD10 Worksheet Patient Problems: Problems Problem Status Onset Atrial fibrillation Acute Chest pain Acute Elevated troponin Acute Hydronephrosis Acute Osteoarthritis of left hip Acute Pancreatitis due to biliary obstruction Acute Transaminitis Acute
[2017-06-09] MEDS: SODIUM BENZOATE IV SCH (13:39)
[2017-06-09] MEDS: D5W IV SCH (13:39)
[2017-06-09] MEDS: CAFFEINE IV SCH (13:39)
[2017-06-10] MEDS: CAFFEINE IV SCH (09:59)
[2017-06-10] MEDS: D5W IV SCH (09:59)
[2017-06-10] MEDS: SODIUM BENZOATE IV SCH (09:59)
--- NOTE | 2017-06-10 10:44 | SOAPPROG ---
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 Bilateral frontoparietal subcortical infarcts suggestive of watershed infarcts. Stroke followed discharge from hospital for a non-ST elevation [place] and new onset atrial fibrillation. Deficits in mobility, self-care, and cognition as well as dysphagia. * Multifocal stroke, cardioembolic source, right-sided weakness: Initial FIM 28 on 06/08/17. Reduced alertness effects participation in therapies improved with IV caffeine. Incontinent bowel and bladder. Moderate assist of 1-2 for bed mobility, moderate assist of 2 for transfers. Max assist for activities of daily living. Ataxic bilateral upper extremities but otherwise can move them. Continue physical therapy and occupational therapy. Monitor for neurological recovery * Dysphagia: Barium swallow showed silent aspiration on thin liquids. Improved alertness today 06/10/17 and now able to safely take POs, DD2, HTL. Reinstated PO meds. Continue IV hydration. * Dehydration: Cr 1.6/BUN 40 on 06/07/2017. Received 1 L of IV fluids overnight 827-06/08/2017. Repeat BMP 06/08/2017 with improved BUN but creatinine & GFR unchanged. Poor short term prognosis to recover swallowing. PICC line inserted 06/08/17. Medications changed to rectal or transdermal to the extent that it is possible. * Acute kidney injury with chronic kidney disease: Creatinine stable at 1.6 and GFR 41 after 1 L IV hydration overnight 827-828/2017. Continue to monitor as he is hydrated. BMP AM 06/11/17. * Back pain overnight. Unclear etiology. Has L hydronephrosis with L upper ureter mass on abd CT 05/28/17, considered to possible be a metastatic colon CA mass. Check UA. Continue hydrocodone/APAP PRN. * Somnolence. Responded to caffeine 200 mg IV started 06/09/2017 in the afternoon. Initiate modafinil starting 06/11/17 now that he can take PO. Continue IV caffeine. * Atrial fibrillation: Continue aspirin. Initiate apixaban 06/16/2017. * Hypertension: Blood pressure running high on metoprolol 50 mg twice daily; resume 06/11/17 as well as amlodipine. * Dyslipidemia: Resume fenofibrate and rosuvastatin 06/11/17. * Hypothyroidism: Continue levothyroxine * Gout, pseudogout, and rheumatoid arthritis: Resume allopurinol, PO methotrexate prednisone. Continue hydrocodone /acetaminophen for pain. * Code status: Do not resuscitate * Obstructive sleep apnea: Continue efforts with CPAP. Continue supplemental oxygen. has been intending to bring him home. Attended neuro add meeting with therapeutic case manager DENTAL TECHNOLOGIST and on 06/08/2017. Discussed need for IV hydration; discussed lack of indication for or efficacy of feeding tube in the setting of elderly man with cognitive impairment. agrees to plan for IV hydration and alternate route to p.o. for provision of medications. Discussed that he may not recover. Consider full palliative Care consult. We will repeat staffing on 06/12/2017. 06/10/17 13:42 Subjective: Reports back pain again overnight but overall slept well. Feels hungry and a little bit thirsty. No cough or dyspnea, no fevers or chills. Objective: Vital Signs Temp Pulse Resp BP Pulse Ox 36.5 C 88 17 161/100 H 98 06/10/17 07:29 06/10/17 10:15 06/10/17 07:29 06/10/17 10:15 06/10/17 10:15 Laboratory Results 06/09/17 06:40 06/09/17 06/10/17 06/11/17 05:59 05:59 05:59 Intake Total 150 1947 857 Output Total 200 1000 Balance -50 947 857 - Time Spent With Patient Time Spent With Patient: Greater than 35 minutes floor time today, including discussions with DENTAL TECHNOLOGIST and pharmacy re resuming PO foods and meds. Physical Exam - Physical Exam General Appearance: WD/WN, alert, no apparent distress Respiratory: normal breath sounds, No crackles, No rhonchi, No wheezing Cardiac/Chest: regular rate, rhythm, No edema Skin: normal color, warm/dry Neuro/Psych: alert, normal mood/affect, abnormal gait (Shuffling gait using a front wheeled walker, short distances, reduced weighting of left lower extremity.) ICD10 Worksheet Patient Problems: Problems Problem Status Onset Atrial fibrillation Acute Chest pain Acute Elevated troponin Acute Hydronephrosis Acute Osteoarthritis of left hip Acute Pancreatitis due to biliary obstruction Acute Transaminitis Acute
[2017-06-10] MEDS: ALLOPURINOL 100 MG TAB PO SCH (11:35)
[2017-06-10] MEDS: DEXAMETHASONE 4 MG/ML VIAL IVP SCH (12:01)
[2017-06-10] MEDS: PANTOPRAZOLE SODIUM 40 MG in NS 100 ML IV SCH (12:05)
[2017-06-10] MEDS: ASPIRIN RECTAL 300 MG SUPP PR SCH (14:33)
[2017-06-10] MEDS ORDERED: LEVOTHYROXINE 100 MCG/5 ML SYR IVP ONE (15:00)
[2017-06-10] MEDS ORDERED: LEVOTHYROXINE 100 MCG/5 ML SYR IVP SCH (15:00)
[2017-06-10] MEDS: METOPROLOL TARTRATE 50 MG TAB PO SCH (20:25)
[2017-06-10] MEDS: HYDROCODONE/APAP 5/325 TAB PO PRN (23:46)
[2017-06-11] MEDS: LEVOTHYROXINE 50 MCG TAB PO SCH (04:19)
[2017-06-11] MEDS: HYDROCODONE/APAP 5/325 TAB PO PRN ×2 (04:19→21:57)
[2017-06-11] MEDS ORDERED: ACETAMINOPHEN 325 MG TAB PO PRN (07:14)
[2017-06-11] MEDS: D5W IV SCH (07:42)
[2017-06-11] MEDS: SODIUM BENZOATE IV SCH (07:42)
[2017-06-11] MEDS: CAFFEINE IV SCH (07:42)
[2017-06-11 08:35] LABS: ANION GAP 9 mEq/L (8-16); CALCIUM 8.7 mg/dL (8.5-10.4); CARBON DIOXIDE 22 mEq/l (22-31); CHLORIDE 109 mEq/L (97-110); CREATININE 1.3 mg/dL (0.7-1.3); GLOMERULAR FILTRATION RATE 52; GLUCOSE 84 mg/dL (70-100); POTASSIUM 4.2 mEq/L (3.5-5.2); SODIUM 140 mEq/L (134-144)
[2017-06-11] MEDS: FAMOTIDINE 20 MG TAB PO SCH (08:56)
[2017-06-11] MEDS: ALLOPURINOL 100 MG TAB PO SCH (08:57)
[2017-06-11] MEDS: ASPIRIN EC 325 MG TAB PO SCH (08:59)
[2017-06-11] MEDS: MODAFINIL 100 MG TAB PO SCH (08:59)
[2017-06-11] MEDS ORDERED: METHOTREXATE 25 MG/ML SYRINGE SC SCH (09:00)
[2017-06-11] MEDS: predniSONE 10 MG TAB PO SCH (09:00)
[2017-06-11] MEDS ORDERED: METHOTREXATE 25 MG/ML SYRINGE IM SCH (09:00)
[2017-06-11] MEDS: FENOFIBRATE 145 MG TAB PO SCH (09:10)
[2017-06-11] MEDS: METOPROLOL TARTRATE 50 MG TAB PO SCH ×2 (09:12→20:58)
[2017-06-11] MEDS: ROSUVASTATIN CALCIUM 20 MG TAB PO SCH (09:13)
--- NOTE | 2017-06-11 10:08 | SOAPPROG ---
SOAP Progress Note Assessment/Plan: Cross cover note: 86-year-old male having difficulty sitting up in chair because of level of attention. In order to sit up in chair, he is requiring a roll belt for positioning. This was ordered today is not violent restraint, roll belt. Examined patient briefly, discussed with him and his spouse. They agree that it is safe option. 06/05/17 09:43 06/05/17 09:52 06/11/17 10:06 Objective: Vital Signs Temp Pulse Resp BP Pulse Ox 36.3 C 87 20 156/74 H 96 06/11/17 07:39 06/11/17 09:12 06/11/17 07:39 06/11/17 09:12 06/11/17 07:39 Laboratory Results 06/11/17 06:40 06/10/17 06/11/17 06/12/17 05:59 05:59 05:59 Intake Total 1947 1382 Output Total 1000 175 Balance 947 1207 ICD10 Worksheet Patient Problems: Problems Problem Status Onset Atrial fibrillation Acute Chest pain Acute Elevated troponin Acute Hydronephrosis Acute Osteoarthritis of left hip Acute Pancreatitis due to biliary obstruction Acute Transaminitis Acute
--- NOTE | 2017-06-11 13:08 | SOAPPROG ---
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 Bilateral frontoparietal subcortical infarcts suggestive of watershed infarcts. Stroke followed discharge from hospital for a non-ST elevation PA and new onset atrial fibrillation. Deficits in mobility, self-care, and cognition as well as dysphagia. * Multifocal stroke, cardioembolic source, right-sided weakness: Initial FIM 28 on 06/08/17. Reduced alertness affects participation in therapies, improved with IV caffeine; modafinil begun today 06/11/2017. Incontinent bowel and bladder. Moderate assist of 1-2 for bed mobility, moderate assist of 2 for transfers. Max assist for activities of daily living. Ataxic bilateral upper extremities but otherwise can move them. Continue physical therapy and occupational therapy. Monitor for neurological recovery * Dysphagia: Barium swallow showed silent aspiration on thin liquids. Improved alertness today 06/10/17 and now able to safely take POs, DD2, HTL. Reinstated PO meds 06/10/2017. Continue IV hydration. * Dehydration: Adequately hydrated IV with creatinine improved to 1.3 on 2016. Cr 1.6/BUN 40 on 06/07/2017. PICC line inserted 06/08/17. * Acute kidney injury with chronic kidney disease: Improved with creatinine now 1.3 on 06/11/2017 from prior baseline of 1.6-1.9. * Back pain overnight. Has L hydronephrosis with L upper ureter mass on abd CT 05/28/17, considered to possible be a metastatic colon CA mass. Check UA. Increase hydrocodone/APAP to 1-2 tablets Q 4 hours PRN. Left message for urologist Dr. Schroeder who saw him during his hospitalization on 05/28/2017 to discuss treatment options. * Somnolence. Responded to caffeine 200 mg IV started 06/09/2017 in the afternoon. Initiated modafinil starting 06/11/17 now that he can take PO. Continue IV caffeine. * Atrial fibrillation: Continue aspirin. Initiate apixaban 06/16/2017. * Hypertension: Blood pressure running high on metoprolol 50 mg twice daily; resume 06/11/17 as well as amlodipine. * Dyslipidemia: Resume fenofibrate and rosuvastatin 06/11/17. * Hypothyroidism: Continue levothyroxine * Gout, pseudogout, and rheumatoid arthritis: Resume allopurinol, PO methotrexate prednisone. Continue hydrocodone /acetaminophen for pain. * Code status: Do not resuscitate * Obstructive sleep apnea: Continue efforts with CPAP. Continue supplemental oxygen. has been intending to bring him home. Attended neuro add meeting with field nurse case manager HOTEL LOBBY CONCIERGE and on 06/08/2017. Discussed need for IV hydration; discussed lack of indication for or efficacy of feeding tube in the setting of elderly man with cognitive impairment. agrees to plan for IV hydration and alternate route to p.o. for provision of medications. Discussed that he may not recover. Consider full palliative Care consult. We will repeat staffing on 06/12/2017. 06/11/17 13:08 Subjective: Had left kidney pain overnight and received 2 doses of hydrocodone/ acetaminophen. reports he was thrashing in bed and fell out of bed but nurse did not receive this in report from the overnight nurse and there are no nose to corroborate. Currently he complains of slight pain in the left kidney area. Otherwise he is without complaint. He denies cough, dyspnea, fevers, chills, dysuria, urinary frequency. Objective: Vital Signs Temp Pulse Resp BP Pulse Ox 36.3 C 87 20 156/74 H 96 06/11/17 07:39 06/11/17 09:12 06/11/17 07:39 06/11/17 09:12 06/11/17 07:39 Laboratory Results 06/11/17 06:40 06/10/17 06/11/17 06/12/17 05:59 05:59 05:59 Intake Total 1947 1382 Output Total 1000 175 Balance 947 1207 Physical Exam - Physical Exam General Appearance: WD/WN, alert, no apparent distress Respiratory: normal breath sounds, No crackles, No rhonchi, No wheezing Cardiac/Chest: regular rate, rhythm, No edema, No diastolic murmur, No systolic murmur Abdomen: non-tender, soft, other (Slight left flank tenderness) Skin: normal color, warm/dry Neuro/Psych: alert, normal mood/affect, cognition abnormalities (Slow to respond and sometimes loses track) ICD10 Worksheet Patient Problems: Problems Problem Status Onset Atrial fibrillation Acute Chest pain Acute Elevated troponin Acute Hydronephrosis Acute Osteoarthritis of left hip Acute Pancreatitis due to biliary obstruction Acute Transaminitis Acute
[2017-06-11] MEDS ORDERED: METHOTREXATE 2.5 MG TAB PO SCH (13:45)
[2017-06-11 20:57] LABS: COLOR AMBER; LEUKOCYTE ESTERASE,URINE NEGATIVE (NEGATIVE); NITRITE,URINE NEGATIVE (NEGATIVE)
[2017-06-11 21:04] LABS: BACTERIA 4+ /hpf (NONE SEEN); MUCUS TRACE /lpf (NONE-1+); WBC,URINE 15-25 /hpf (0-3)
[2017-06-12] MEDS: LEVOTHYROXINE 50 MCG TAB PO SCH (05:28)
[2017-06-12] MEDS: NS W/ 20 KCl/L 1,000 ML IV SCH (05:28)
[2017-06-12] MEDS: METOPROLOL TARTRATE 50 MG TAB PO SCH ×2 (09:16→21:29)
[2017-06-12] MEDS: ROSUVASTATIN CALCIUM 20 MG TAB PO SCH (09:18)
--- NOTE | 2017-06-12 10:56 | SOAPPROG ---
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 Bilateral frontoparietal subcortical infarcts suggestive of watershed infarcts. Stroke followed discharge from hospital for a non-ST elevation [place] and new onset atrial fibrillation. Deficits in mobility, self-care, and cognition as well as dysphagia. * Multifocal stroke, cardioembolic source, right-sided weakness: Initial FIM 28 on 06/08/17, improved to 32 as of 06/12/2017. Push to the right. Decreased motor planning on the right. Impaired attention and somnolence affect participation in therapies. 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 Alertness affects participation in therapies, improved with IV caffeine; modafinil begun yesterday 06/11/2017. Incontinent bowel and bladder. Moderate assist of 1-2 for bed mobility, moderate assist of 2 for transfers. Max assist for activities of daily living. Continue physical therapy and occupational therapy. Monitor for neurological recovery * Dysphagia: Barium swallow showed silent aspiration on thin liquids. Improved alertness 06/10/17 and now able to safely take POs, DD2, HTL. Reinstated PO meds 06/10/2017. Continue IV hydration. * Altered mental status 06/12/2017. CBC with continued leukocytosis. U Cx with greater than 100,000 CFU per mL lactose fermenting Gram-negative rods. Started ciprofloxacin 250 mg p.o. twice daily for 7 days. * Dehydration: Adequately hydrated IV with creatinine improved to 1.3 on 2016. Cr 1.6/BUN 40 on 06/07/2017. PICC line inserted 06/08/17. * Acute kidney injury with chronic kidney disease: Improved with creatinine now 1.3 on 06/11/2017 from prior baseline of 1.6-1.9. * Back pain overnight. Has L hydronephrosis with L upper ureter mass on abd CT 05/28/17, considered to possible be a metastatic colon CA mass. Check UA. Increase hydrocodone/APAP to 1-2 tablets Q 4 hours PRN. D/W urologist Dr. Schroeder who saw him during his hospitalization on 05/28/2017: No good options to resolve hydronephrosis. In accessible via endoscopy from below; nephrostomy tube might be impossible to internalize and he might end up with permanent enough; mass is inaccessible for biopsy. Continue pain control. * Somnolence. Responded to caffeine 200 mg IV started 06/09/2017 in the afternoon. Initiated modafinil starting 06/11/17 now that he can take PO. Continue IV caffeine. * Atrial fibrillation: Continue aspirin. Initiate apixaban 06/16/2017. * Hypertension: Blood pressure running high on metoprolol 50 mg twice daily; resumed 06/11/17 as well as amlodipine. * Dyslipidemia: Resumed fenofibrate and rosuvastatin 06/11/17. * Hypothyroidism: Continue levothyroxine * Gout, pseudogout, and rheumatoid arthritis: Resume allopurinol, PO methotrexate prednisone. Continue hydrocodone /acetaminophen for pain. * Code status: Do not resuscitate * Obstructive sleep apnea: Continue efforts with CPAP. Continue supplemental oxygen. Attended staffing, 15 minutes. Discussed with case management, nursing, PT, OT , SENIOR ARCHITECT, transitional acute care physical therapist. has been intending to bring him home. Unlikely that she will have enough assistance to be able to take care of him. Await completion of evaluation for mental status changes today 06/12/17. May need to have discussion regarding palliative goals of care. 06/12/17 10:57 06/12/17 16:59 Subjective: Confused this morning with disorientation and impaired attention. Not enough focus to participate in speech therapy and attempt to eat and swallow. Shows some agitation with purposeless movements of limbs. Denies pain, reports that he slept well, corroborated by nursing. No cough or dyspnea. No fevers or chills. Objective: Vital Signs Temp Pulse Resp BP Pulse Ox 36.5 C 71 19 127/70 H 95 06/12/17 06:08 06/12/17 10:25 06/12/17 06:08 06/12/17 10:25 06/12/17 06:08 Laboratory Results 06/11/17 06:40 06/11/17 06/12/17 06/13/17 05:59 05:59 05:59 Intake Total 1382 120 100 Output Total 175 625 2 Balance 1207 -505 98 - Time Spent With Patient Time Spent With Patient: Greater than 35 minutes floor time today, including more than 50% of time in coordination of care during staffing meeting, and counseling patient and . Physical Exam - Physical Exam General Appearance: WD/WN, alert, no apparent distress, obese Respiratory: normal breath sounds, No crackles, No rhonchi, No wheezing Cardiac/Chest: irregularly irregular, No tachycardia, No diastolic murmur, No systolic murmur Skin: normal color, warm/dry Neuro/Psych: alert, normal mood/affect, other (Moves all extremities.) ICD10 Worksheet Patient Problems: Problems Problem Status Onset Atrial fibrillation Acute Chest pain Acute Elevated troponin Acute Hydronephrosis Acute Osteoarthritis of left hip Acute Pancreatitis due to biliary obstruction Acute Transaminitis Acute
[2017-06-12 12:35] LABS: % IMMATURE GRANULYOCYTES 1.1 % (0.0-1.1); ABSOLUTE IMMATURE GRANULOCYTES 0.14 10^3/uL (0.00-0.10); ADD DIFF? NO; ADD MORPH? NO; ADD SCAN? NO; ATYPICAL LYMPHOCYTE FLAG 0 (0-99); FRAGMENT RBC FLAG 0 (0-99); HEMATOCRIT 39.3 % (40.0-51.0); HEMOGLOBIN 12.8 g/dL (13.7-17.5); LEFT SHIFT FLG 10 (0-99); LIPEMIA HEMOLYSIS FLAG 80 (0-99); MEAN CELL HEMOGLOBIN 31.8 pg (27.9-34.1); MEAN CELL HEMOGLOBIN CONCENTR. 32.6 g/dL (32.4-36.7); MEAN CELL VOLUME 97.5 fL (81.5-99.8); MEAN PLATELET VOLUME 11.3 fL (8.7-11.7); PLATELET CLUMPS FLAG 10 (0-99); PLATELET COUNT 193 10^3/uL (150-400); RED BLOOD CELL COUNT 4.03 10^6/uL (4.40-6.38)
[2017-06-12 12:46] LABS: ANION GAP 8 mEq/L (8-16); CALCIUM 9.1 mg/dL (8.5-10.4); CARBON DIOXIDE 22 mEq/l (22-31); CHLORIDE 107 mEq/L (97-110); CREATININE 1.5 mg/dL (0.7-1.3); GLOMERULAR FILTRATION RATE 44; GLUCOSE 79 mg/dL (70-100); POTASSIUM 4.4 mEq/L (3.5-5.2); SODIUM 137 mEq/L (134-144)
[2017-06-12] MEDS: FAMOTIDINE 20 MG TAB PO SCH (12:48)
[2017-06-12] MEDS: ALLOPURINOL 100 MG TAB PO SCH (12:48)
[2017-06-12] MEDS: ASPIRIN EC 325 MG TAB PO SCH (12:48)
[2017-06-12] MEDS: MODAFINIL 100 MG TAB PO SCH (12:49)
[2017-06-12] MEDS: predniSONE 10 MG TAB PO SCH (12:49)
[2017-06-12] MEDS: FENOFIBRATE 145 MG TAB PO SCH (12:49)
[2017-06-12] MEDS: SODIUM BENZOATE IV SCH (12:55)
[2017-06-12] MEDS: CAFFEINE IV SCH (12:55)
[2017-06-12] MEDS: D5W IV SCH (12:55)
[2017-06-12] MEDS: CIPROFLOXACIN 250 MG TAB PO SCH (21:29)
[2017-06-12] MEDS: HYDROCODONE/APAP 5/325 TAB PO PRN (21:30)
[2017-06-13] MEDS ORDERED: traZODone 50 MG TAB PO ONE (01:00)
[2017-06-13] MEDS ORDERED: MELATONIN 3 MG TAB PO ONE (01:00)
[2017-06-13] MEDS: LEVOTHYROXINE 50 MCG TAB PO SCH (05:41)
[2017-06-13] MEDS: METOPROLOL TARTRATE 50 MG TAB PO SCH ×2 (09:30→20:31)
[2017-06-13] MEDS: CIPROFLOXACIN 250 MG TAB PO SCH ×2 (09:31→20:31)
[2017-06-13] MEDS: ASPIRIN EC 325 MG TAB PO SCH (09:32)
[2017-06-13] MEDS: predniSONE 10 MG TAB PO SCH (09:33)
[2017-06-13] MEDS: NS W/ 20 KCl/L 1,000 ML IV SCH (09:34)
[2017-06-13] MEDS: ALLOPURINOL 100 MG TAB PO SCH (09:42)
[2017-06-13] MEDS: ROSUVASTATIN CALCIUM 20 MG TAB PO SCH (09:44)
[2017-06-13] MEDS: MODAFINIL 100 MG TAB PO SCH (09:45)
[2017-06-13] MEDS: FENOFIBRATE 145 MG TAB PO SCH (09:45)
[2017-06-13] MEDS: FAMOTIDINE 20 MG TAB PO SCH (09:45)
[2017-06-13] MEDS: D5W IV SCH (10:14)
[2017-06-13] MEDS: SODIUM BENZOATE IV SCH (10:14)
[2017-06-13] MEDS: CAFFEINE IV SCH (10:14)
--- NOTE | 2017-06-13 10:28 | SOAPPROG ---
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 Bilateral frontoparietal subcortical infarcts suggestive of watershed infarcts. Stroke followed discharge from hospital for a non-ST elevation [place] and new onset atrial fibrillation. Deficits in mobility, self-care, and cognition as well as dysphagia. * Multifocal stroke, cardioembolic source, right-sided weakness: Initial FIM 28 on 06/08/17, improved to 32 as of 06/12/2017. Push to the right. Decreased motor planning on the right. Impaired attention and somnolence affect participation in therapies. 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 Alertness affects participation in therapies, improved with IV caffeine; modafinil STARTED ON THE FOR 06/11/2017. Incontinent bowel and bladder. Moderate assist of 1-2 for bed mobility, moderate assist of 2 for transfers. Max assist for activities of daily living. Continue physical therapy and occupational therapy. Monitor for neurological recovery * Dysphagia: Barium swallow showed silent aspiration on thin liquids. Improved alertness 06/10/17 and now able to safely take POs, DD2, HTL. Reinstated PO meds 06/10/2017. Continue IV hydration. * Altered mental status 06/12/2017. CBC with continued leukocytosis. U Cx with greater than 100,000 CFU per mL lactose fermenting Gram-negative rods. Started ciprofloxacin 250 mg p.o. twice daily for 7 days. * Dehydration: Adequately hydrated IV with creatinine improved to 1.3 on 2016. Cr 1.6/BUN 40 on 06/07/2017. PICC line inserted 06/08/17. * Acute kidney injury with chronic kidney disease: Improved with creatinine now 1.3 on 06/11/2017 from prior baseline of 1.6-1.9. * Back pain overnight. Has L hydronephrosis with L upper ureter mass on abd CT 05/28/17, considered to possible be a metastatic colon CA mass. Check UA. Increase hydrocodone/APAP to 1-2 tablets Q 4 hours PRN. D/W urologist Dr. Schroeder who saw him during his hospitalization on 05/28/2017: No good options to resolve hydronephrosis. In accessible via endoscopy from below; nephrostomy tube might be impossible to internalize and he might end up with permanent enough; mass is inaccessible for biopsy. Continue pain control. * Somnolence. Responded to caffeine 200 mg IV started 06/09/2017 in the afternoon. Initiated modafinil starting 06/11/17 now that he can take PO. Continue IV caffeine. THIS IS MOST LIKELY AGGRAVATED BY SLEEP APNEA AND NONCOMPLIANCE WITH NIGHTTIME USE OF SUPPLEMENTAL OXYGEN. * Atrial fibrillation: Continue aspirin. Initiate apixaban 06/16/2017. * Hypertension: BLOOD PRESSURE THIS MORNING 155/96. HE IS CURRENTLY TAKING NORVASC 2.5 MG Q.DAY. SINCE BLOOD PRESSURE IS NOT WELL CONTROLLED, WILL INCREASE NORVASC TO 5 MG Q.DAY. CONTINUE metoprolol 50 mg twice daily. HE MAY BE HYPERTENSIVE DUE TO COMBINATION OF IV CAFFEINE AND PROVIGIL. WILL CONTINUE TO MONITOR BLOOD PRESSURE. * Dyslipidemia: Resumed fenofibrate and rosuvastatin 06/11/17. * Hypothyroidism: Continue levothyroxine * Gout, pseudogout, and rheumatoid arthritis: Resume allopurinol, PO methotrexate prednisone. Continue hydrocodone /acetaminophen for pain. * Code status: Do not resuscitate * Obstructive sleep apnea: Continue efforts with CPAP. NURSING REPORTS PATIENT REMOVES CPAP DURING THE NIGHT. Plan: 06/13/17 10:30 Subjective: NURSING REPORTS THAT HE HAD TRAZODONE 25 MG AND MELATONIN 3 MG LAST NIGHT AND SLEPT WELL AND IS REQUESTING A PRN ORDER FOR THIS. NURSING ALSO REPORTS THAT PATIENT HAS MILD AGITATION. NURSING HIS CONVEYED BLOOD PRESSURE THIS MORNING IS 161/65. HE WAS STARTED ON CIPROFLOXACILLIN LAST P.M. FOR URINARY TRACT INFECTION. Objective: Vital Signs Temp Pulse Resp BP Pulse Ox 36.6 C 81 18 155/96 H 94 06/13/17 06:16 06/13/17 09:30 06/13/17 06:16 06/13/17 09:30 06/13/17 06:16 Microbiology 06/11/17 21:20 Urine Culture - Final Urine,Clean Catch Escherichia Coli Laboratory Results 06/12/17 09:56 06/12/17 09:56 06/12/17 06/13/17 06/14/17 05:59 05:59 05:59 Intake Total 120 1080 1000 Output Total 625 102 Balance -417 472 4343 Physical Exam - Physical Exam General Appearance: alert, no apparent distress, No WD/WN Respiratory: lungs clear, No crackles, No rales, No wheezing Cardiac/Chest: No edema Abdomen: non-tender, soft Skin: other (PICC LINE SITE WITHOUT ERYTHEMA. ) ICD10 Worksheet Patient Problems: Problems Problem Status Onset Atrial fibrillation Acute Chest pain Acute Elevated troponin Acute Hydronephrosis Acute Osteoarthritis of left hip Acute Pancreatitis due to biliary obstruction Acute Transaminitis Acute
[2017-06-13] MEDS ORDERED: traZODone 50 MG TAB PO SCH (21:00)
[2017-06-13] MEDS ORDERED: MELATONIN 3 MG TAB PO SCH (21:00)
[2017-06-13] MEDS: HYDROCODONE/APAP 5/325 TAB PO PRN (22:12)
[2017-06-14] MEDS: NS W/ 20 KCl/L 1,000 ML IV SCH ×2 (00:41→17:13)
[2017-06-14] MEDS: LEVOTHYROXINE 50 MCG TAB PO SCH (05:43)
[2017-06-14] MEDS ORDERED: METOPROLOL TARTRATE 50 MG TAB PO ONE (05:45)
[2017-06-14] MEDS ORDERED: DIAZEPAM 5 MG TAB PO ONE (05:45)
[2017-06-14] MEDS ORDERED: amLODIPine BESYLATE 5 MG TAB PO SCH (09:00)
--- NOTE | 2017-06-14 10:27 | SOAPPROG ---
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 Bilateral frontoparietal subcortical infarcts suggestive of watershed infarcts. Stroke followed discharge from hospital for a non-ST elevation [place] and new onset atrial fibrillation. Deficits in mobility, self-care, and cognition as well as dysphagia. * Multifocal stroke, cardioembolic source, right-sided weakness: Initial FIM 28 on 06/08/17, improved to 32 as of 06/12/2017. Push to the right. Decreased motor planning on the right. Impaired attention and somnolence affect participation in therapies. 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 Alertness affects participation in therapies, improved with IV caffeine; modafinil STARTED ON THE FOR 06/11/2017. Incontinent bowel and bladder. Moderate assist of 1-2 for bed mobility, moderate assist of 2 for transfers. Max assist for activities of daily living. Continue physical therapy and occupational therapy. Monitor for neurological recovery * Hypertension: CALLED AT 5:00 A.M. THIS MORNING ON DUE TO PATIENT'S BLOOD PRESSURE 175/99. PATIENT ALSO NOTED BY NURSING STAFF TO BE AGITATED. THEREFORE HE WAS GIVEN AN EXTRA 50 MG OF METOPROLOL AND 5 MG DIAZEPAM. LAST RECORDED BLOOD PRESSURE AT 08 040 WAS NOTED TO BE 160/93. MAY CONSIDER INCREASING METOPROLOL TO 50 THREE TIMES DAILY, HOWEVER THIS MAY RESULT IN EXERCISE INTOLERANCE DUE TO BRADYCARDIA. AT THIS POINT WILL DISCONTINUE THE IV CAFFEINE IT IS NOT CLEAR THAT IT IS IMPROVING HIS COGNITIVE STATUS AND MAY IN FACT BE CAUSING HIM TO BE SOMEWHAT AGITATED AND HYPERTENSIVE. * AGITATION-WILL OF AN RIGHT ORDER FOR VALIUM 2.5 MG Q.6 HOURS P.R.N. AGITATION. ALL * Dysphagia: Barium swallow showed silent aspiration on thin liquids. Improved alertness 06/10/17 and now able to safely take POs, DD2, HTL. Reinstated PO meds 06/10/2017. Continue IV hydration. * Altered mental status 06/12/2017. CBC with continued leukocytosis. U Cx with greater than 100,000 CFU per mL lactose fermenting Gram-negative rods. Started ciprofloxacin 250 mg p.o. twice daily for 7 days. * Dehydration: Adequately hydrated IV with creatinine improved to 1.3 on 2016. Cr 1.6/BUN 40 on 06/07/2017. PICC line inserted 06/08/17. * Acute kidney injury with chronic kidney disease: Improved with creatinine now 1.3 on 06/11/2017 from prior baseline of 1.6-1.9. * Back pain overnight. Has L hydronephrosis with L upper ureter mass on abd CT 05/28/17, considered to possible be a metastatic colon CA mass. Check UA. Increase hydrocodone/APAP to 1-2 tablets Q 4 hours PRN. D/W urologist Dr. Schroeder who saw him during his hospitalization on 05/28/2017: No good options to resolve hydronephrosis. In accessible via endoscopy from below; nephrostomy tube might be impossible to internalize and he might end up with permanent enough; mass is inaccessible for biopsy. Continue pain control. * Somnolence. Responded to caffeine 200 mg IV started 06/09/2017 in the afternoon. Initiated modafinil starting 06/11/17 now that he can take PO. Continue IV caffeine. THIS IS MOST LIKELY AGGRAVATED BY SLEEP APNEA AND NONCOMPLIANCE WITH NIGHTTIME USE OF SUPPLEMENTAL OXYGEN. * Atrial fibrillation: Continue aspirin. Initiate apixaban 06/16/2017. * * Dyslipidemia: Resumed fenofibrate and rosuvastatin 06/11/17. * Hypothyroidism: Continue levothyroxine * Gout, pseudogout, and rheumatoid arthritis: Resume allopurinol, PO methotrexate prednisone. Continue hydrocodone /acetaminophen for pain. * Code status: Do not resuscitate * Obstructive sleep apnea: Continue efforts with CPAP. NURSING REPORTS PATIENT REMOVES CPAP DURING THE NIGHT. Plan: 06/13/17 10:30 06/14/17 10:28 Subjective: CALLED AT 5:00 A.M. THIS MORNING BECAUSE PATIENT WAS AGITATED WITH INCREASED BLOOD PRESSURE. THEREFORE TELEPHONE ORDER WAS GIVEN FOR 50 MG METOPROLOL AND 5 MG VALIUM.. HIS AND SON, WERE PRESENT TODAY DURING ROUNDS AND STATE THAT HE WAS SLEEPING MUCH BETTER SINCE HE WAS GIVEN VALIUM. THEY REMARKED THAT HE HAD NOT BEEN SLEEPING WELL OVER THE PAST SEVERAL NIGHTS. HIS SON NOTED THAT WHEN HE IS AWAKE HE HAS BEEN GOOD COMPREHENSION BUT DESCRIBES EXPRESSIVE APHASIA. Objective: Vital Signs Temp Pulse Resp BP Pulse Ox 36.2 C 85 18 160/93 H 95 06/14/17 08:04 06/14/17 08:04 06/14/17 08:04 06/14/17 08:04 06/14/17 08:04 Microbiology 06/11/17 21:20 Urine Culture - Final Urine,Clean Catch Escherichia Coli Laboratory Results 06/12/17 09:56 06/12/17 09:56 06/13/17 06/14/17 06/15/17 05:59 05:59 05:59 Intake Total 1080 1965 900 Output Total 102 300 Balance 978 1665 900 Physical Exam - Physical Exam General Appearance: other (SLEEPING DUE TO SEDATIVES.) Respiratory: lungs clear, normal breath sounds Cardiac/Chest: other (PULSE 76 AND REGULAR) Skin: normal color, warm/dry Extremities: No swelling, No Aidan's sign (UNABLE TO ASSESS MOTOR EXAM DUE TO PATIENT SLEEPING/BEING SEDATED) ICD10 Worksheet Patient Problems: Problems Problem Status Onset Atrial fibrillation Acute Chest pain Acute Elevated troponin Acute Hydronephrosis Acute Osteoarthritis of left hip Acute Pancreatitis due to biliary obstruction Acute Transaminitis Acute
[2017-06-14] MEDS ORDERED: DIAZEPAM 2 MG TAB PO PRN (10:33)
[2017-06-14] MEDS ORDERED: ACETAMINOPHEN 650 MG/20.3 ML UDCUP TUBE PRN (11:43)
[2017-06-14] MEDS ORDERED: DIAZEPAM 2 MG TAB TUBE PRN (11:46)
[2017-06-14] MEDS ORDERED: HYDROCODONE/APAP 5/325 TAB TUBE PRN (11:47)
[2017-06-14] MEDS: ASPIRIN EC 325 MG TAB PO SCH (12:42)
[2017-06-14] MEDS: ALLOPURINOL 100 MG TAB PO SCH (12:42)
[2017-06-14] MEDS: D5W IV SCH (12:43)
[2017-06-14] MEDS: CIPROFLOXACIN 250 MG TAB PO SCH (12:43)
[2017-06-14] MEDS: SODIUM BENZOATE IV SCH (12:43)
[2017-06-14] MEDS: FAMOTIDINE 20 MG TAB PO SCH (12:43)
[2017-06-14] MEDS: CAFFEINE IV SCH (12:43)
[2017-06-14] MEDS: METOPROLOL TARTRATE 50 MG TAB PO SCH (12:44)
[2017-06-14] MEDS: FENOFIBRATE 145 MG TAB PO SCH (12:44)
[2017-06-14] MEDS: ROSUVASTATIN CALCIUM 20 MG TAB PO SCH (12:45)
[2017-06-14] MEDS: MODAFINIL 100 MG TAB PO SCH (12:45)
[2017-06-14] MEDS: predniSONE 10 MG TAB PO SCH (12:45)
[2017-06-14] MEDS ORDERED: BENZOCAINE UNIT DOSE SPRAY HURRICAINE MM ONE (14:01)
[2017-06-14] MEDS ORDERED: LIDOCAINE 2% JELLY 5 ML TUBE ONE (14:02)
[2017-06-14] MEDS: amLODIPine BESYLATE 5 MG TAB TUBE SCH (16:45)
[2017-06-14] MEDS: FENOFIBRATE 145 MG TAB TUBE SCH (16:46)
[2017-06-14] MEDS: predniSONE 10 MG TAB TUBE SCH (16:47)
[2017-06-14] MEDS: ROSUVASTATIN CALCIUM 20 MG TAB TUBE SCH (16:48)
[2017-06-14] MEDS: ASPIRIN 325 MG TAB TUBE SCH (16:54)
[2017-06-14] MEDS: RANITIDINE HCL 150 MG/10 ML UDCUP TUBE SCH (16:54)
[2017-06-14] MEDS: CIPROFLOXACIN 250 MG TAB TUBE SCH (20:36)
[2017-06-14] MEDS: METOPROLOL TARTRATE 50 MG TAB TUBE SCH (20:37)
[2017-06-14] MEDS ORDERED: MELATONIN 3 MG TAB TUBE SCH (21:00)
[2017-06-14] MEDS ORDERED: traZODone 50 MG TAB TUBE SCH (21:00)
[2017-06-14] MEDS ORDERED: NS W/ 20 KCl/L 1,000 ML IV SCH (23:30)
[2017-06-15] MEDS ORDERED: LEVOTHYROXINE 50 MCG TAB TUBE SCH (06:00)
[2017-06-15] MEDS: FENOFIBRATE 145 MG TAB TUBE SCH (09:00)
[2017-06-15] MEDS: amLODIPine BESYLATE 5 MG TAB TUBE SCH (09:00)
[2017-06-15] MEDS ORDERED: ASPIRIN 325 MG TAB TUBE SCH (09:00)
[2017-06-15] MEDS: RANITIDINE HCL 150 MG/10 ML UDCUP TUBE SCH (09:00)
[2017-06-15] MEDS: ASPIRIN 325 MG TAB TUBE SCH (09:00)
[2017-06-15] MEDS ORDERED: ALLOPURINOL 100 MG TAB TUBE SCH (09:00)
[2017-06-15] MEDS ORDERED: FENOFIBRATE 145 MG TAB TUBE SCH (09:00)
[2017-06-15] MEDS: predniSONE 10 MG TAB TUBE SCH (09:00)
[2017-06-15] MEDS ORDERED: MODAFINIL 100 MG TAB TUBE SCH (09:00)
[2017-06-15] MEDS: CIPROFLOXACIN 250 MG TAB TUBE SCH (09:00)
[2017-06-15] MEDS ORDERED: amLODIPine BESYLATE 5 MG TAB TUBE SCH (09:00)
[2017-06-15] MEDS ORDERED: RANITIDINE HCL 150 MG/10 ML UDCUP TUBE SCH (09:00)
[2017-06-15] MEDS ORDERED: ROSUVASTATIN CALCIUM 20 MG TAB TUBE SCH (09:00)
[2017-06-15] MEDS ORDERED: predniSONE 10 MG TAB TUBE SCH (09:00)
[2017-06-15] MEDS: ROSUVASTATIN CALCIUM 20 MG TAB TUBE SCH (09:00)
[2017-06-15] MEDS: METOPROLOL TARTRATE 50 MG TAB TUBE SCH (09:00)
--- NOTE | 2017-06-15 11:08 | SOAPPROG ---
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 Bilateral frontoparietal subcortical infarcts suggestive of watershed infarcts. Stroke followed discharge from hospital for a non-ST elevation [place] and new onset atrial fibrillation. Deficits in mobility, self-care, and cognition as well as dysphagia. * Multifocal stroke, cardioembolic source, right-sided weakness: NO APPARENT IMPROVEMENT IN RIGHT HEMIPLEGIA. Participation in PT/OT LIMITED ON THURSDAY AND THURSDAY. Initial FIM 28 on 06/08/17, improved to 32 as of 06/12/2017. Push to the right. Decreased motor planning on the right. Impaired attention and somnolence affect participation in therapies. 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 Alertness affects participation in therapies, improved with IV caffeine; modafinil STARTED ON THE FOR 06/11/2017. Incontinent bowel and bladder. Moderate assist of 1-2 for bed mobility, moderate assist of 2 for transfers. Max assist for activities of daily living. Continue physical therapy and occupational therapy. Monitor for neurological recovery * NPO-PHARMACY TO CONVERT MEDS TO IV. DVT PROHALAXIX WITH LOVINOX 40 QDAY. * Hypertension: BP THIS AM 143/83 ON METOPROLOL 50 BID AND AMLODIPINE 5 QDAY. SINCE HE IS CURRENTLY NPO AND PULLED OUT HIS FEEDING TUBE, WILL HAVE PHARMACY CONVERT TO IV VASOTEC--THIS IS PENDING RX HERE WILL CONTACT ME REGARDING THIS. * AGITATION-WILL OF AN RIGHT ORDER FOR VALIUM 2.5 MG Q.6 HOURS P.R.N. AGITATION. ALL * Dysphagia: NOW NPO PER XANDER BLACK WHO WORKED WITH HIM TODAY. Continue IV hydration. DR GAR TO CONSIDER TPN ON 06/16, BUT MY UNDERSTANDING FROM DISCUSSION WITH KEELY IS THAT DR GAR WILL ADDRESS THIS. * Altered mental status 06/12/2017. CBC with continued leukocytosis. U Cx with greater than 100,000 CFU per mL lactose fermenting Gram-negative rods. Started ciprofloxacin 250 mg p.o. twice daily for 7 days. * Dehydration: WILL RECHECK BMP IN AM, ORDER SUBMITTED. Adequately hydrated IV with creatinine improved to 1.3 on 06/11/2017. Cr 1.6/BUN 40 on 06/07/2017. PICC line inserted 06/08/17. * Acute kidney injury with chronic kidney disease: Improved with creatinine now 1.3 on 06/11/2017 from prior baseline of 1.6-1.9. * Back pain overnight. Has L hydronephrosis with L upper ureter mass on abd CT 05/28/17, considered to possible be a metastatic colon CA mass. Check UA. Increase hydrocodone/APAP to 1-2 tablets Q 4 hours PRN. D/W urologist Dr. Schroeder who saw him during his hospitalization on 05/28/2017: No good options to resolve hydronephrosis. In accessible via endoscopy from below; nephrostomy tube might be impossible to internalize and he might end up with permanent enough; mass is inaccessible for biopsy. Continue pain control. * Somnolence. IV caffeine D/C'D YESTERDAY DUE TO HTN AND RESTLESSNESS AT NIGHT THIS IS MOST LIKELY AGGRAVATED BY SLEEP APNEA AND NONCOMPLIANCE WITH NIGHTTIME USE OF SUPPLEMENTAL OXYGEN. * Atrial fibrillation: Continue aspirin. Initiate apixaban 06/16/2017. * Dyslipidemia: Resumed fenofibrate and rosuvastatin 06/11/17. * Hypothyroidism: Continue levothyroxine * Gout, pseudogout, and rheumatoid arthritis: Resume allopurinol, PO methotrexate prednisone. Continue hydrocodone /acetaminophen for pain. * Code status: Do not resuscitate * Obstructive sleep apnea: Continue efforts with CPAP. NURSING REPORTS PATIENT REMOVES CPAP DURING THE NIGHT. Plan: 06/13/17 10:30 06/14/17 10:28 06/15/17 11:09 Subjective: He pulled out his NGT yesterday evening. His reports he had a restless night. He is more conversive today, but has difficulty following commands and is a poor histirian. Objective: Vital Signs Temp Pulse Resp BP Pulse Ox 36.4 C 67 22 H 148/83 H 95 06/15/17 07:50 06/15/17 07:50 06/15/17 07:50 06/15/17 07:50 06/15/17 07:50 Laboratory Results 06/12/17 09:56 06/12/17 09:56 06/14/17 06/15/17 06/16/17 05:59 05:59 05:59 Intake Total 1965 2160 450 Output Total 300 340 Balance 1665 1820 450 Physical Exam - Physical Exam General Appearance: mild distress Respiratory: lungs clear, wheezing (wheezes are from upper airway, positional), No respiratory distress, No decreased breath sounds, No splinting Cardiac/Chest: No regular rate, rhythm, No edema, No JVD Abdomen: non-tender, soft Skin: warm/dry Neuro/Psych: motor weakness, cognition abnormalities, speech abnormalities ICD10 Worksheet Patient Problems: Problems Problem Status Onset Atrial fibrillation Acute Chest pain Acute Elevated troponin Acute Hydronephrosis Acute Osteoarthritis of left hip Acute Pancreatitis due to biliary obstruction Acute Transaminitis Acute
[2017-06-15] MEDS ORDERED: LABETALOL HCL 50 MG/10 ML SYR IVP ONE (12:52)
[2017-06-15 15:06] LABS: ANION GAP 8 mEq/L (8-16); CALCIUM 8.7 mg/dL (8.5-10.4); CARBON DIOXIDE 21 mEq/l (22-31); CHLORIDE 107 mEq/L (97-110); CREATININE 1.4 mg/dL (0.7-1.3); GLOMERULAR FILTRATION RATE 48; GLUCOSE 70 mg/dL (70-100); POTASSIUM 4.1 mEq/L (3.5-5.2); SODIUM 136 mEq/L (134-144)
[2017-06-15] MEDS: LABETALOL HCL 5 MG/ML 20 ML MDV IV SCH ×2 (17:27→20:41)
[2017-06-15] MEDS: CIPROFLOXACIN 200 MG/DEXTROSE 100 ML IV SCH (20:43)
[2017-06-16] MEDS ORDERED: ENOXAPARIN 40 MG/0.4 ML SYR SC SCH (09:00)
[2017-06-16] MEDS ORDERED: FAMOTIDINE 20 MG/NACL 50 ML IV SCH ×2 (09:00→21:00)
[2017-06-16] MEDS: CIPROFLOXACIN 200 MG/DEXTROSE 100 ML IV SCH (09:30)
[2017-06-16] MEDS ORDERED: LEVOTHYROXINE 100 MCG/5 ML SYR IVP SCH (10:00)
[2017-06-16] MEDS ORDERED: *PHM DO NOT USE-DEXAMETHASONE 0.2 MG/ML IV PED/NEWBORN SYR IV SCH ×2 (10:15→21:00)
[2017-06-16] MEDS ORDERED: NS 1,000 ML IV SCH (10:45)
--- NOTE | 2017-06-16 10:47 | SOAPPROG ---
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 Bilateral frontoparietal subcortical infarcts suggestive of watershed infarcts. Stroke followed discharge from hospital for a non-ST elevation [place] and new onset atrial fibrillation. Deficits in mobility, self-care, and cognition as well as dysphagia. Today's update: Discussed case with Dr. Newton who will be meeting with family today for goals of care discussion. Currently patient has IV access for medications, converted all medications from p. o. to IV as available. Partially converted over the weekend. Over 60 minutes was spent on the floor in the care of the patient, the majority of which was spent in counseling and coordination of care regarding discussions with the family members, settings stage for goals of care discussion, coordinating with staff. Patient would like to be home with family if possible. Patient slept much better last night with 2 mg of morphine. Patient also noted to have a left lower lobe opacity on chest x-ray on 2016. We will continue to monitor this closely, low threshold to treat for pneumonia. Currently on ciprofloxacin for urinary tract infection, could consider better coverage for the lungs. * Multifocal stroke, cardioembolic source, right-sided weakness: Initial FIM 28 on 06/08/17, improved to 32 as of 06/12/2017. Push to the right. Decreased motor planning on the right. Impaired attention and somnolence affect participation in therapies. 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 Alertness affects participation in therapies. Incontinent bowel and bladder. Moderate assist of 1-2 for bed mobility, moderate assist of 2 for transfers. Max assist for activities of daily living. Continue physical therapy and occupational therapy. * Decreased attention and alertness: Attempting to get better sleep at night, has shown some improvement with p. o. medication such as modafinil, IV medications such as caffeine when p.o. was not available. This is significantly impacting his ability to participate in therapies, and has had decreased ability. note that caffeine was stopped over the weekend because they thought it might be contributing to hypertension. Okay to hold for now, monitor. * Hypertension: Currently being managed on IV labetalol, can be pushed on all units as long as it is not emergent. Consider adding p.r.n. hydralazine. Would reinstitute p.o. medications for hypertensive management when possible. * Agitation: Was previously written for p.r.n. Valium, overnight patient did very well with mild pain management, morphine IV 2 mg. plan to continue this. * Dysphagia: NPO, using IV hydration with normal saline 100 milliliters/ hour. All meds via IV. Extremely high aspiration risk per speech therapy. Continue working with speech therapy on this issue, plan to transition back to p.o. when available. * Urinary tract infection: Altered mental status 06/12/2017, CBC with continued leukocytosis, U Cx with E coli funk susceptible. Started ciprofloxacin for a 7 day course, transition to IV as he is not able to take p.o., will consider narrowing antibiotics or expanding to cover possible lung infection. 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 Consider expanding antibiotic coverage from the existing ciprofloxacin for UTI to also get better cover to the lungs. * Dehydration: Getting IV fluids, monitoring clinically as well as watching creatinine. Stable. * Acute kidney injury with chronic kidney disease: Sensitive to fluids, continue IV fluid hydration. * Back pain: Has L hydronephrosis with L upper ureter mass on abd CT 05/28/17, considered to possible be a metastatic colon CA mass. D/W urologist Dr. Schroeder who saw him during his hospitalization on 05/28/2017: No good options to resolve hydronephrosis. In accessible via endoscopy from below; nephrostomy tube might be impossible to internalize and he might end up with permanent enough; mass is inaccessible for biopsy. Continue pain control. * Atrial fibrillation: plan was to initiate apixaban 06/16/2017, however was not able to take p.o. Discussed with Pharmacy, plan is for enoxaparin dosed at 1 milligram/kilogram twice daily. Aspirin held because of inability to take p.o. * Dyslipidemia: Resumed fenofibrate and rosuvastatin 06/11/17 , but held because of inability to take p.o.. Resume when possible.. * Hypothyroidism: Continue levothyroxine, currently IV * Gout, pseudogout, and rheumatoid arthritis: allopurinol, PO methotrexate prednisone are home medications. currently is unable to take p. o. and is getting IV allopurinol and dexamethasone in place of prednisone. P.o. methotrexate being held. * Code status: Do not resuscitate . Goals of care to be discussed on [address] Newton in the afternoon given that Dr. Newton has extensive experience with this patient. * Obstructive sleep apnea: Continue efforts with CPAP , though he removes it frequently during the night. Encourage use. has been intending to bring him home, and states that the patient would like to go home. goals of care discussion pending as noted above. Subjective: Chief complaint: Goals of care No acute events overnight. Over the weekend, the patient has been NPO because of impaired swallow. Feeding tube was placed briefly and the patient pulled out. A PICC was also placed for medication administration. Family is interested in goals of care discussion, anticipating this with Dr. Newton given his level of knowledge about the patient. Some medications were switched to IV over the weekend, however some were not able to be transitioned. Discussed at length with pharmacy today appropriate substitutions. Patient states that he is doing well, no new shortness of breath or chest pain, no new numbness, tingling, or weakness. Was also noted to have left lower lobe opacity on chest x-ray from 06/14/2017. Patient has not been febrile. Currently on ciprofloxacin for UTI treatment. Objective: Vital Signs Temp Pulse Resp BP Pulse Ox 36.6 C 91 18 167/91 H 92 06/16/17 05:12 06/16/17 05:12 06/16/17 05:12 06/16/17 05:12 06/16/17 05:12 Laboratory Results 06/12/17 09:56 06/15/17 12:40 06/15/17 06/16/17 06/17/17 05:59 05:59 05:59 Intake Total 2160 2300 Output Total 340 700 Balance 1820 1600 Physical Exam - Physical Exam General Appearance: WD/WN, alert, no apparent distress, other (Would drift off to sleep during conversation) EENT: No scleral icterus (R), No scleral icterus (L) Respiratory: lungs clear, normal breath sounds, other (Had difficulty getting a good lung exam because of positioning), No respiratory distress, No accessory muscle use Cardiac/Chest: normal peripheral pulses, regular rate, rhythm, No edema Skin: normal color, warm/dry, No cyanosis Extremities: No pedal edema, No swelling Neuro/Psych: alert (But would fall asleep at times), normal mood/affect, other ( Weakness of the arm, though able to raise above head with effort.) ICD10 Worksheet Patient Problems: Problems Problem Status Onset Atrial fibrillation Acute Chest pain Acute Elevated troponin Acute Hydronephrosis Acute Osteoarthritis of left hip Acute Pancreatitis due to biliary obstruction Acute Transaminitis Acute
[2017-06-16] MEDS: LABETALOL HCL 5 MG/ML 20 ML MDV IV SCH (14:04)
[2017-06-16] MEDS ORDERED: LABETALOL HCL 5 MG/ML 20 ML MDV IV PRN (14:52)
--- NOTE | 2017-06-16 15:01 | PDPCPN ---
Palliative Care Progress Note Assessment/Plan: Assessment: Goals of care discussion with patient's . She reports that he would not find his current quality of life to be acceptable. She reports that all he wants right now is to return home and to be with her. Given his goals of care and his lack of progress over 12 days in rehabilitation she is agreeable to hospice care rather than continuing to attempt rehabilitation. She understands that he is at risk of pneumonia with any oral intake. She understands that he is at risk of dehydration if IV fluids were discontinued. She understands the level of care that he needs and acknowledges that she would be unable to provide that herself. Disposition options were discussed including home with hired caregivers versus jail facility. Ordered hospice consult. He will be evaluated tomorrow. Resumed p.o. medications and p.o. diet. Began to discontinue medications which were not consistent with his goals of care. Discontinued ciprofloxacin, rosuvastatin and fenofibrate. Will continue other medications including rate control and anticoagulation given atrial fibrillation, blood pressure control and medications for rheumatoid arthritis for now. Continue attempts at rehabilitation until hospice care is initiated. Subjective: Goals of care discussion with . Patient is without complaints. He denies cough, dyspnea, fevers, chills. He reports that his kidney pain is resolved. Objective: Vital Signs Temp Pulse Resp BP Pulse Ox 36.6 C 110 H 18 182/118 H 92 06/16/17 05:12 06/16/17 14:18 06/16/17 05:12 06/16/17 14:18 06/16/17 05:12 Laboratory Results 06/12/17 09:56 06/15/17 12:40 06/15/17 06/16/17 06/17/17 05:59 05:59 05:59 Intake Total 2160 2300 Output Total 340 700 Balance 1820 1600 - Time Spent With Patient Time Spent With Patient: Greater than 35 minutes floor time today, including more than 50% of time in coordination of care and counseling during goals of care discussion with and child protective services social worker present. Physical Exam - Physical Exam General Appearance: WD/WN, alert, no apparent distress, obese Respiratory: normal breath sounds, No crackles, No rhonchi, No wheezing Cardiac/Chest: irregularly irregular, No edema, No diastolic murmur, No systolic murmur Skin: normal color, warm/dry Neuro/Psych: alert, normal mood/affect (Oriented to self only. Requires maximal assistance of 2 to arise to seated from supine and transfer from bed to chair.) ICD10 Worksheet Patient Problems: Problems Problem Status Onset Atrial fibrillation Acute Chest pain Acute Elevated troponin Acute Hydronephrosis Acute Osteoarthritis of left hip Acute Pancreatitis due to biliary obstruction Acute Transaminitis Acute
[2017-06-16] MEDS ORDERED: ACETAMINOPHEN 650 MG/20.3 ML UDCUP PO PRN (15:23)
[2017-06-16] MEDS ORDERED: HYDROCODONE/APAP 5/325 TAB PO PRN (15:28)
[2017-06-16] MEDS ORDERED: LABETALOL HCL 5 MG/ML 20 ML MDV IV SCH (16:00)
[2017-06-16] MEDS ORDERED: CIPROFLOXACIN 200 MG/DEXTROSE 100 ML IV SCH ×2 (18:00→21:00)
[2017-06-16] MEDS: LABETALOL HCL 50 MG/10 ML SYR IV PRN (20:09)
[2017-06-16] MEDS ORDERED: MELATONIN 3 MG TAB PO SCH (21:00)
[2017-06-16] MEDS ORDERED: ENOXAPARIN 100 MG/ML SYR SC SCH (21:00)
[2017-06-16] MEDS ORDERED: APIXABAN 2.5 MG TAB PO SCH (21:00)
[2017-06-16] MEDS ORDERED: traZODone 50 MG TAB PO SCH (21:00)
[2017-06-16] MEDS ORDERED: DEXAMETHASONE 4 MG/ML VIAL IVP SCH (21:00)
[2017-06-16] MEDS: METOPROLOL TARTRATE 50 MG TAB PO SCH (23:50)
[2017-06-17] MEDS: LABETALOL HCL 50 MG/10 ML SYR IV PRN ×2 (00:04→07:16)
[2017-06-17] MEDS ORDERED: LEVOTHYROXINE 50 MCG TAB PO SCH (06:00)
[2017-06-17] MEDS ORDERED: ASPIRIN 325 MG TAB PO SCH (09:00)
[2017-06-17] MEDS ORDERED: ALLOPURINOL IV SCH (09:00)
[2017-06-17] MEDS ORDERED: MODAFINIL 100 MG TAB PO SCH (09:00)
[2017-06-17] MEDS ORDERED: ALLOPURINOL 100 MG TAB PO SCH (09:00)
[2017-06-17] MEDS ORDERED: amLODIPine BESYLATE 5 MG TAB PO SCH (09:00)
[2017-06-17] MEDS ORDERED: NS IV SCH (09:00)
[2017-06-17] MEDS ORDERED: RANITIDINE HCL 150 MG/10 ML UDCUP PO SCH (09:00)
[2017-06-17] MEDS ORDERED: predniSONE 10 MG TAB PO SCH (09:00)
--- NOTE | 2017-06-17 11:30 | SOAPPROG ---
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 Bilateral frontoparietal subcortical infarcts suggestive of watershed infarcts. Stroke followed discharge from hospital for a non-ST elevation [place] and new onset atrial fibrillation. Deficits in mobility, self-care, and cognition as well as dysphagia. * Multifocal stroke, cardioembolic source, right-sided weakness: Initial FIM 28 on 06/08/17, improved to 32 as of 06/12/2017, and declined to 23 as of 2016. Incontinent of bowel and bladder. Not taking any nutrition or fluids. 2 person assist for transfer, total assist for ADLs. * Dysphagia: Barium swallow showed silent aspiration on thin liquids. Improved alertness 06/10/17 and was able to safely take POs, blood loss safe swallow on . Had feeding tube but self discontinued after less than a day. Continues on IV fluids and medications by alternate roots. Allow comfort feeding. Initiated clonidine patch 0.2 mg and rectal aspirin today 06/17/2007 * Altered mental status 06/12/2017. CBC with continued leukocytosis. U Cx with greater than 100,000 CFU per mL lactose fermenting Gram-negative rods. Started ciprofloxacin 250 mg p.o. twice daily for 7 days but his mental status did not improve. * Dehydration: Adequately hydrated IV with creatinine improved to 1.3 on 2016. Cr 1.6/BUN 40 on 06/07/2017. PICC line inserted 06/08/17. * Acute kidney injury with chronic kidney disease: Improved with creatinine now 1.3 on 06/11/2017 from prior baseline of 1.6-1.9. * Back pain intermittent. Has L hydronephrosis with L upper ureter mass on abd CT 05/28/17, considered to possible be a metastatic colon CA mass. Check UA. Increase hydrocodone/APAP to 1-2 tablets Q 4 hours PRN. D/W urologist Dr. Schroeder who saw him during his hospitalization on 05/28/2017: No good options to resolve hydronephrosis. In accessible via endoscopy from below; nephrostomy tube might be impossible to internalize and he might end up with permanent enough; mass is inaccessible for biopsy. Continue pain control. * Somnolence. Consistent with delirium. * Atrial fibrillation: Continue aspirin. Initiated apixaban 06/16/2017 but not taking p.o. medications. * Hypertension: Clonidine patch 0.2 mg, change Q 7 days. * Dyslipidemia: Resumed fenofibrate and rosuvastatin 06/11/17; discontinued 2016. * Hypothyroidism: Continue levothyroxine if he can take it orally. * Gout, pseudogout, and rheumatoid arthritis: Resume allopurinol, PO methotrexate, prednisone, if he can take them orally. Continue hydrocodone / acetaminophen for pain, as well as IV morphine p.r.n.. * Code status: Do not resuscitate * Obstructive sleep apnea: Continue efforts with CPAP. Continue supplemental oxygen. Attended staffing, 15 minutes. Discussed with case management, nursing, PT, OT , HR RECRUITER. has been intending to bring him home. Hospice consult today, 2016; will discharge tomorrow 06/18/2017 to [facility] and enroll in hospice. Will discontinue all medications other than IV morphine and clonidine patch upon discharge. 06/17/17 11:33 Subjective: No complaints. Mostly somnolent. Objective: Vital Signs Temp Pulse Resp BP Pulse Ox 36.5 C 95 16 145/95 H 93 06/17/17 07:05 06/17/17 07:30 06/17/17 07:30 06/17/17 07:30 06/17/17 07:30 Laboratory Results 06/12/17 09:56 06/15/17 12:40 06/16/17 06/17/17 06/18/17 05:59 05:59 05:59 Intake Total 2300 3453 Output Total 700 50 Balance 1600 3403 - Time Spent With Patient Time Spent With Patient: Greater than 35 minutes floor time today, including more than 50% of time in coordination of care during staffing meeting the and in discussion with hospice staff, and counseling patient's Physical Exam - Physical Exam General Appearance: WD/WN, alert, no apparent distress, obtunded, obese Respiratory: No respiratory distress, No accessory muscle use Skin: normal color, warm/dry ICD10 Worksheet Patient Problems: Problems Problem Status Onset Atrial fibrillation Acute Chest pain Acute Elevated troponin Acute Hydronephrosis Acute Osteoarthritis of left hip Acute Pancreatitis due to biliary obstruction Acute Transaminitis Acute
[2017-06-17] MEDS ORDERED: ACETAMINOPHEN 650 MG SUPP PR PRN (11:44)
[2017-06-17] MEDS: ASPIRIN RECTAL 300 MG SUPP PR SCH (11:46)
[2017-06-17] MEDS: METOPROLOL TARTRATE 50 MG TAB PO SCH (12:42)
[2017-06-17] MEDS: BISACODYL 10 MG SUPP PR PRN (18:17)
[2017-06-17] MEDS ORDERED: FAMOTIDINE 20 MG/NACL 50 ML IV SCH (21:00)
[2017-06-18 06:18] VITALS: BP 165/90; PULSE 72; RESP 18; TEMP 98.1; O2SAT 96
[2017-06-18] MEDS: ASPIRIN RECTAL 300 MG SUPP PR SCH (10:51)
--- NOTE | 2017-06-19 00:47 | GDS ---
[f rep st] DISCHARGE SUMMARY ADMITTING DIAGNOSIS: Debility, status post cerebrovascular accident. DISCHARGE DIAGNOSIS: Debility, status post cerebrovascular accident. ADDITIONAL DIAGNOSES: 1. Encephalopathy. 2. Dysphagia. 3. Renal insufficiency. CONSULTATIONS: There were none. PROCEDURES: Video fluoroscopic swallow study done and and NG tube inserted. COMPLICATIONS: Dysphagia. HISTORY AND HOSPITAL COURSE: The patient was admitted from [facility] following multifocal embolic cerebrovascular accident which happened on the day of discharge from a prior admission for a myocardial infarction and atrial fibrillation. He had been started on anticoagulation but had the stroke nonetheless. He initially was able to participate in therapies. His initial functional independence measure was 28 which is consistent with a very low level of function at the assisted level. He was needing assistance in all activities of daily living including moderate assist of 2 people to make a transfer and maximal assistance for activities of daily living. He was incontinent of bowel and bladder. Reduced alertness affected his ability to participate in therapies and video fluoroscopic study showed aspiration. He was made n.p.o. He was also noted to be dehydrated with a creatinine of 1.6 and BUN of 40 on 06/07/2017. Once he was made n.p.o., a PICC line was inserted. He was hydrated and medications were changed to IV, transdermal or rectal. He was given IV caffeine with improvement in alertness and he had some improvement in his functional status. The functional independence measure improved to 32 on 2016. He recovered his ability to swallow and modafinil was begun on 2016. However, he had continued fluctuation in alertness and ultimately declined in function, and lost his safe swallow again. There was an attempt at NG feeding, medications, and hydration. However, he self-discontinued the NG tube and had considerable subsequent decline and his functional independence measure declined to 23 on 06/17/2017. Palliative care discussion was engaged with the patient's and they elected hospice care. All medications but transdermal clonidine and IV morphine were discontinued. He discharged on 06/18, to [facility] and was enrolled in [facility] hospice. PHYSICAL EXAM: GENERAL: On the day of discharge, this is an obese elderly gentleman lying in bed, intermittently alert and sleeping, oriented to self only. HEART: Regular rate and rhythm with no murmurs, rubs, or gallops. LUNGS : Clear to auscultation bilaterally with a limited exam due to difficulty in repositioning. EXTREMITIES: There is no cyanosis, clubbing, or edema. DISCHARGE PLAN: Condition on discharge: Declining. Activity: He needs assistance with all activities of daily living and mobility. Diet: He can have comfort feeding of any texture and any thickness or thinness of liquid. However, he has not been taking oral feeding for several days. FOLLOWUP: Date of next appointment: he will follow up with a new attending at [facility] as well as the [facility] staff. MEDICATIONS AT DISCHARGE: Intravenous morphine and clonidine transdermal. ISSUES TO BE ADDRESSED AT FOLLOWUP: Comfort care and end of life care per [facility]. Greater than 35 minutes was spent on this discharge, including coordination of care and making medication reconciliation as well as physical exam of the patient and counseling with the patient's . Copy requested to: [facility] /[id number]
== END 2017-06-18 12:29 | DRG 57 ==
LOC: BREH 15:03
PROVIDERS: ADMIT Internal Medicine; ATTEND Internal Medicine
PROC: F08Z7ZZ Vocational Activities and Functional Community or Work Reintegration Skills Treatment (ICD-10-PCS; principal; 2017-06-04)
PROC: F07M3ZZ Motor Function Treatment of Musculoskeletal System - Whole Body (ICD-10-PCS; principal; 2017-06-04)
PROC: F0636ZZ Communicative/Cognitive Integration Skills Treatment of Neurological System - Whole Body (ICD-10-PCS; principal; 2017-06-04)
PROC: 02HV33Z Insertion of Infusion Device into Superior Vena Cava, Percutaneous Approach (ICD-10-PCS; 2017-06-08)
DX: I69.331 Monoplegia of upper limb following cerebral infarction affecting right dominant side (principal); I69.391 Dysphagia following cerebral infarction; I69.318 Other symptoms and signs involving cognitive functions following cerebral infarction; I48.91 Unspecified atrial fibrillation; Z79.01 Long term (current) use of anticoagulants; I25.10 Atherosclerotic heart disease of native coronary artery without angina pectoris; I25.2 Old myocardial infarction; E86.0 Dehydration; N17.9 Acute kidney failure, unspecified; I12.9 Hypertensive chronic kidney disease with stage 1 through stage 4 chronic kidney disease, or unspecified chronic kidney disease; N18.9 Chronic kidney disease, unspecified; N13.1 Hydronephrosis with ureteral stricture, not elsewhere classified; N39.0 Urinary tract infection, site not specified; B96.20 Unspecified Escherichia coli [E. coli] as the cause of diseases classified elsewhere; F05 Delirium due to known physiological condition; E78.5 Hyperlipidemia, unspecified; G47.33 Obstructive sleep apnea (adult) (pediatric); E03.9 Hypothyroidism, unspecified; M10.9 Gout, unspecified; M06.9 Rheumatoid arthritis, unspecified; Z96.653 Presence of artificial knee joint, bilateral; H54.41 Blindness, right eye, normal vision left eye; Z85.038 Personal history of other malignant neoplasm of large intestine
CPT/HCPCS: 92507-GN; 92522-GN; 92526-GN; 92610-GN; 92611-GN; 97110-GO; 97110-GP; 97112-GO; 97112-GP; 97116-GP; 97162-GP; 97166-GO; 97530-GO; 97530-GP; 97532-GO; 97535-GO; 97542-GP; C1751; J1100; J1650; J2997; J3490; J9250